=== PATIENT | female | born 1965 | race Hispanic/Latino ===

== ENCOUNTER 2024-04-24 00:02 | Emergency (ER) | payer SELFPAY ==
[~2024-04-24] VITALS: Ht 160 cm; Wt 66.7 kg
[2024-04-24] MEDS: ondanSETRON 4MG INJ IVP ONE (00:56)
[2024-04-24] MEDS: morPHINE 4 MG SYG IVP ONE (00:56)
[2024-04-24 01:11] LABS: CREATININE 0.7 mg/dL (0.5-1.0); POTASSIUM 4.6 mmol/L (3.5-5.1)
[2024-04-24 01:15] LABS: BILIRUBIN,DIRECT 0.4 mg/dL (0.0-0.3); BILIRUBIN,TOTAL 1.3 mg/dL (0.2-1.0); TOTAL PROTEIN, SERUM 6.3 g/dL (6.0-8.3)
[2024-04-24 01:24] LABS: BASOPHILS # (AUTO) 0.01 K/uL (0.00-0.20); BASOPHILS % (AUTO) 0.2 % (0.0-5.0); EOSINOPHILS # (AUTO) 0.18 K/uL (0.00-0.70); EOSINOPHILS % (AUTO) 3.8 % (0.0-8.0); HEMATOCRIT 31.8 % (36-48); IMMATURE GRANULOCYTE ABSOLUTE 0.01 K/uL (0-1); LYMPHOCYTES % (AUTO) 20.8 % (21.0-51.0); MEAN CORPUSCULAR HEMOGLOBIN 32.1 pg (27.0-33.0); MEAN CORPUSCULAR HGB CONC 33.3 g/dL (32.0-36.0); MEAN CORPUSCULAR VOLUME 96.4 fL (79-99); MONOCYTES # (AUTO) 0.9 K/uL (0.1-1.0); MONOCYTES % (AUTO) 17.9 % (3.0-13.0); NEUTROPHILS # (AUTO) 2.7 K/uL (1.8-7.7); NEUTROPHILS % (AUTO) 57.1 % (40.0-77.0); PLATELET COUNT (AUTO) 92 K/uL (130-400); RED CELL DISTRIBUTION WIDTH 16.1 % (11.0-15.5); WHITE BLOOD COUNT (AUTO) 4.8 K/uL (4.8-10.8)
[2024-04-24 01:52] LABS: B-TYPE NATRIURETIC PEPTIDE 52 pg/mL (0-100)
[2024-04-24 02:31] LABS: WBC MORPHOLOGY CONSISTENT W/DIFF
[2024-04-24] MEDS ORDERED: IOHEXOL 350 MG/ML 100ML INFUS..BTL IV ONE (03:21)
[2024-04-24] MEDS: LACTULOSE 20 GM/30 ML UDCUP PO ONE (03:22)
[2024-04-24] MEDS: ketOROlac 15MG/ML VIAL (15MG/ML) IV ONE (03:34)
[2024-04-24 04:17] LABS: APPEARANCE,URINE CLEAR (CLEAR); BILIRUBIN,URINE NEGATIVE (NEGATIVE); COLOR,URINE YELLOW (YELLOW); GLUCOSE, URINE (UA) NEGATIVE (NEGATIVE); KETONES,URINE NEGATIVE (NEGATIVE); LEUKOCYTE ESTERASE ,URINE 25 Leu/uL (NEGATIVE); NITRATE,URINE NEGATIVE (NEGATIVE); OCCULT BLOOD,URINE NEGATIVE (NEGATIVE); PH,URINE 6.5 (5.0-8.0); PROTEIN,URINE 20 mg/dL (NEGATIVE)
[2024-04-24 04:32] LABS: ADD UA MICROSCOPIC YES
[2024-04-24 04:36] LABS: MUCUS,URINE RARE LPF (None Seen); SQUAMOUS EPITHELIAL CELL,UR MOD /HPF (0-2)
[2024-04-24 07:14] VITALS: BP 121/53; PULSE 68; RESP 18; TEMP 98.2; O2SAT 99
== END 2024-04-24 07:16 | disposition home or self-care (01) ==
LOC: EDH 00:02
DX: K74.60 Unspecified cirrhosis of liver (principal); R18.8 Other ascites; E11.9 Type 2 diabetes mellitus without complications; I10 Essential (primary) hypertension; E78.00 Pure hypercholesterolemia, unspecified
CPT/HCPCS: 99285; 74177; 96374; 76705; 96375; 71045; 80076; 84484; 80048; 83880; 82140; 83690; 85025; 81001; 36415; 93005; J2405; J2270; J1885; Q9967

== ENCOUNTER 2024-06-24 13:48 | Emergency (ER) | payer SELFPAY ==
[~2024-06-24] VITALS: Ht 157.5 cm; Wt 116.6 kg
[~2024-06-24 13:48] MED LIST: ACET-2079 PO; CYAN25006 SL; FERR1TAB66 PO; FURO20TA4 PO; LACT10SO9 PO; LEVO150C4 PO; PANT20TA18 PO; PROP10TA10 PO; SPIR25TA6 PO
[2024-06-24 13:49] VITALS: BP 112/58; PULSE 64; RESP 20; TEMP 98.5
--- NOTE | 2024-06-24 14:07 | ERN ---
ED Note History of Present Illness Stated Complaint: ABDOMINAL PAIN Chief Complaint: Abdominal Pain Time Seen by MD: 14:04 Dictation: PATIENT IS A 58-YEAR-OLD PATIENT HERE WITH CIRRHOSIS OF THE LIVER AND REQUESTING A PARACENTESIS. SHE STATES SHE HAS HAD ABDOMINAL DISTENTION FOR THE LAST 3-4 DAYS, WENT TO HER DOCTOR AT [facility], WAS ADVISED TO COME TO [facility] THIS AFTERNOON FOR A PARACENTESIS. SHE IS ALSO TAKING HER LACTULOSE HOWEVER SHE IS ALERT AND ORIENTED X4 SPEECH CLEAR STATES SHE ONLY USES [facility] FOR H ER PARACENTESIS. Allergies: Coded Allergies: No Known Allergies (Unverified Allergy, Unknown, 04/24/24) morphine (Unverified Allergy, Unknown, 05/25/24) Home Meds Active Scripts Lactulose (Lactulose) 20 Gram/30 Ml Solution, 30 ML PO BID for constipation for 30 Days, #900 ML 0 Refills Prov:FERNANDO SAUCEDA MD 05/26/24 Propranolol HCl (Propranolol HCl) 10 Mg Tablet, 1 TAB PO BID for 14 Days, #28 TAB 0 Refills Prov:FERNANDO SAUCEDA MD 05/26/24 Spironolactone (Spironolactone) 25 Mg Tablet, 1 TAB PO DAILY for 14 Days, #14 TAB 0 Refills Prov:FERNANDO SAUCEDA MD 05/26/24 Furosemide (Furosemide) 20 Mg Tablet, 1 TAB PO BID for 14 Days, #28 TAB 0 Refills Prov:FERNANDO SAUCEDA MD 05/26/24 Pantoprazole Sodium (Pantoprazole Sodium) 20 Mg Tablet.dr, 1 TAB PO DAILY for 30 Days, #30 TAB 0 Refills Prov:FERNANDO SAUCEDA MD 05/26/24 Reported Medications Levothyroxine Sodium (Levothyroxine) 150 Mcg Capsule, 1 CAP PO DAILY for 30 Days, #30 CAP 0 Refills 05/26/24 Cyanocobalamin (Vitamin B-12) (B-12) 2,500 Mcg Tab.subl, 1 TAB SL DAILY for 30 Days, #30 TAB 0 Refills 05/26/24 Acetaminophen with Codeine (Acetaminophen-Cod #3 Tablet) 300 Mg-30 Mg Tablet, 1 TAB PO Q6HPRN PRN for pain for 7 Days, #28 TAB 0 Refills 05/26/24 Iron,Carbonyl/Ascorbic Acid (Vitron-C Tablet) 65 Mg Iron-125 Mg Tablet.dr, 1 TAB PO DAILY for 30 Days, #30 TAB 0 Refills 05/26/24 Past Medical History Past Medical History: Diabetes-Type II, High Cholesterol, Hypertension, Other Additional Past Medical Hx: CIRRHOSIS,THYROID Surgical History: None History: Not Applicable RN Note Reviewed/Agreed w/PFSH: Yes Review of System Dictation CONSTITUTIONAL: NEGATIVE EXCEPT FOR HPI HEAD/FACE: NEGATIVE EXCEPT FOR HPI EENT: NEGATIVE EXCEPT FOR HPI RESPIRATORY: NEGATIVE EXCEPT FOR HPI SHORTNESS A BREATH GASTROINTESTINAL/ABDOMINAL: NEGATIVE EXCEPT FOR HPI ABDOMINAL DISTENTION GENITOURINARY: NEGATIVE EXCEPT FOR HPI MUSCULOSKELETAL: NEGATIVE EXCEPT FOR HPI INTEGUMENTARY: NEGATIVE EXCEPT FOR HPI NEUROLOGICAL/PSYCH: NEGATIVE EXCEPT FOR HPI HEMATOLOGIC/LYMPHATIC: NEGATIVE EXCEPT FOR HPI ALL SYSTEMS NEGATIVE, EXCEPT NOTED ABOVE. 13 POINT REVIEW OF SYSTEMS ASSESSED AND ALL NEGATIVE EXCEPT FOR ABOVE. Initial Vital Sign VS Vital Signs Date Time Temp Pulse Resp B/P (MAP) Pulse Ox O2 Delivery O2 Flow Rate FiO2 06/24/24 13:49 98.4 64 20 112/58 100 Room Air 0 Physical Exam Dictation VITAL SIGNS REVIEWED GENERAL APPEARANCE: ALERT, ORIENTED X 3, MILD ACUTE DISTRESS, WELL DEVELOPED, NOURISHED. MORBIDLY OBESE HEAD AND FACE: NON-TRAUMATIC. EYES: PERRL, PINK CONJUNCTIVAS, EYELID NO TRAUMA, ANTERIOR CHAMBER WITH ARCUS SENILIS. EARS: PINNAS INTACT AND NO SIGNS OF TRAUMA OR ERYTHEMA EAR CANALS CLEAR AND NO DISCHARGE TM NO ERYTHEMA NOSE: NO DISCHARGE, NO BLEEDING. OROPHARYNX: MOUTH NORMAL, TONGUE PINK, PHARYNX CLEAR,NO ERYTHEMA, TONSILS NO EXUDATES, NO ABSCESSES NOTED, MUCOUS M EMBRANE MOIST NECK: SUPPLE, NON-TENDER, NO THYROMEGALY, NO MASSES, NO JVD, NO BRUITS BREAST:DEFERRED CHEST:NO TENDERNESS, NO CREPITUS, NO PARADOXICAL MOVEMENT, NO RETRACTIONS LUNGS:CLEAR, WELL-VENTILATED, SYMMETRIC, NO RALES, NO WHEEZING, NO RHONCHI, NO STRIDOR, GOOD BREATH SOUNDS BILATERALLY HEART: REGULAR RATE, REGULAR RHYTHM, NO MURMUR, NO GALLOPS VASCULAR: NO PERIPHERAL EDEMA, ABDOMEN: SOFT, POSITIVE BOWEL SOUNDS, DISTENDED WITH POSITIVE WAVE SIGN, HEPATOMEGALY NOTED. NO FOCAL TENDERNESS RECTAL: DEFERRED GENITAL: DEFERRED NEUROLOGICAL: NORMAL SPEECH, MOTOR FUNCTION INTACT, SENSORY FUNCTION INTACT MUSCULOSKELETAL: NECK NONTENDER, FULL RANGE OF MOTION, BACK NONTENDER, FULL RANGE OF MOTION, EXTREMITIES: NONTENDER, FULL RANGE OF MOTION SKIN: COLOR PINK, DRY, NO TURGOR, NO RASH, NO LACERATIONS, NO ABRASIONS, NO CONTUSIONS. LYMPHATIC: DEFERRED Results (Laboratory/Radiology) Labs Reviewed?: Yes ED Course ED Course Orders Procedure Category Date Status Time Ammonia LAB 06/24/24 Transmitted 14:04 Pt And Ptt LAB 06/24/24 Transmitted 14:04 Cbc With Differential LAB 06/24/24 Transmitted 14:04 Basic Metabolic Panel LAB 06/24/24 Transmitted 14:04 Vital Signs Date Time Temp Pulse Resp B/P (MAP) Pulse Ox O2 Delivery O2 Flow Rate FiO2 06/24/24 13:49 98.4 64 20 112/58 100 Room Air 0 DX & DISP Departure Condition: Stable Referrals: SELF,REFERRAL (PCP) URMILA LESLIE NP Jun 24, 2024 14:07
[2024-06-24 14:36] LABS: BASOPHILS # (AUTO) 0.01 K/uL (0.00-0.20); BASOPHILS % (AUTO) 0.2 % (0.0-5.0); EOSINOPHILS # (AUTO) 0.28 K/uL (0.00-0.70); EOSINOPHILS % (AUTO) 6.4 % (0.0-8.0); IMMATURE GRANULOCYTE ABSOLUTE 0.01 K/uL (0-1); LYMPHOCYTES # (AUTO) 0.8 K/uL (1.0-4.8); LYMPHOCYTES % (AUTO) 17.1 % (21.0-51.0); MEAN CORPUSCULAR HEMOGLOBIN 32.6 pg (27.0-33.0); MEAN CORPUSCULAR HGB CONC 32.6 g/dL (32.0-36.0); MONOCYTES # (AUTO) 0.8 K/uL (0.1-1.0); MONOCYTES % (AUTO) 18.3 % (3.0-13.0); NEUTROPHILS # (AUTO) 2.5 K/uL (1.8-7.7); NEUTROPHILS % (AUTO) 57.8 % (40.0-77.0); PLATELET COUNT (AUTO) 105 K/uL (130-400); WHITE BLOOD COUNT (AUTO) 4.4 K/uL (4.8-10.8)
[2024-06-24 14:49] LABS: CREATININE 0.9 mg/dL (0.5-1.0); POTASSIUM 4.1 mmol/L (3.5-5.1)
--- NOTE | 2024-06-24 15:33 | NUR ---
CHARTED ON PATIENT IN ERROR.
[2024-06-24 15:42] LABS: INR 1.55 (0.85-1.15); PROTHROMBIN TIME 16.2 SEC (9.6-11.6)
[2024-06-24 15:44] LABS: PARTIAL THROMBOPLASTIN TIME 37.1 SEC (26.3-35.5)
[2024-06-25] MEDS ORDERED: SPIR100T5 PO (20:13)
[2024-06-25] MEDS ORDERED: FURO40TA5 PO (20:13)
[2024-06-25] MEDS ORDERED: LACT10SO9 PO (20:14)
== END 2024-06-24 15:35 | disposition left against medical advice (07) ==
LOC: EDH 13:48
DX: R14.0 Abdominal distension (gaseous) (principal); E11.9 Type 2 diabetes mellitus without complications; E78.00 Pure hypercholesterolemia, unspecified; I10 Essential (primary) hypertension; Z79.890 Hormone replacement therapy; Z79.899 Other long term (current) drug therapy; Z88.5 Allergy status to narcotic agent
CPT/HCPCS: 36415; 80048; 82140; 85025; 85610; 85730; 99283

== ENCOUNTER 2024-06-25 07:45 | Inpatient (IN) | payer OTHER ==
[~2024-06-25] VITALS: Ht 157.5 cm; Wt 108.4 kg
[2024-06-25 08:27] LABS: BASOPHILS # (AUTO) 0.03 K/uL (0.00-0.20); BASOPHILS % (AUTO) 0.6 % (0.0-5.0); EOSINOPHILS # (AUTO) 0.39 K/uL (0.00-0.70); EOSINOPHILS % (AUTO) 7.3 % (0.0-8.0); HEMATOCRIT 33.1 % (36-48); IMMATURE GRANULOCYTE ABSOLUTE 0.02 K/uL (0-1); LYMPHOCYTES % (AUTO) 19.5 % (21.0-51.0); MEAN CORPUSCULAR HEMOGLOBIN 32.6 pg (27.0-33.0); MEAN CORPUSCULAR HGB CONC 32.9 g/dL (32.0-36.0); MEAN CORPUSCULAR VOLUME 99.1 fL (79-99); MONOCYTES # (AUTO) 1.1 K/uL (0.1-1.0); MONOCYTES % (AUTO) 20.6 % (3.0-13.0); NEUTROPHILS # (AUTO) 2.8 K/uL (1.8-7.7); NEUTROPHILS % (AUTO) 51.6 % (40.0-77.0); PLATELET COUNT (AUTO) 111 K/uL (130-400); RED BLOOD CELL COUNT(AUTO) 3.34 MIL/uL (4.00-5.50); RED CELL DISTRIBUTION WIDTH 15.9 % (11.0-15.5); WHITE BLOOD COUNT (AUTO) 5.3 K/uL (4.8-10.8)
[2024-06-25 08:36] LABS: CREATININE 0.9 mg/dL (0.5-1.0); POTASSIUM 4.5 mmol/L (3.5-5.1)
[2024-06-25 08:40] LABS: ALBUMIN 1.9 g/dL (3.5-5.0); BILIRUBIN,DIRECT 0.3 mg/dL (0.0-0.3); BILIRUBIN,TOTAL 1.6 mg/dL (0.2-1.0); TOTAL PROTEIN, SERUM 6.5 g/dL (6.0-8.3)
[2024-06-25] MEDS: furoSEMIDE 100MG VIAL 10 MG/ML VIAL IVP ONE (08:42)
--- NOTE | 2024-06-25 09:35 | HMCIMG ---
CHEST 1VW HISTORY: Shortness of breath COMPARISON: June 10, 2024 FINDINGS: A frontal projection of the chest was obtained. There are bilateral pulmonary infiltrates suggestive of pulmonary vascular congestion with possible superimposed pneumonitis. The heart is borderline enlarged. Degenerative changes are seen. No evidence of aortic calcification is seen. IMPRESSION: 1. Bilateral pulmonary infiltrates are seen suggestive of pulmonary vascular congestion with possible superimposed pneumonitis.
--- NOTE | 2024-06-25 09:48 | ERN ---
ED Note History of Present Illness Stated Complaint: ABDOMINAL PAIN Chief Complaint: Abdominal Pain Time Seen by MD: 07:46 Dictation: 58-year-old female history of cirrhosis presenting to the emergency department with worsening abdominal distention and shortness of breath. Patient reports recent paracentesis 2-3 weeks ago, takes her medications med compliant no fevers or vomiting. Symptoms are 8/10 constant and worsening. Allergies: Coded Allergies: No Known Allergies (Unverified Allergy, Unknown, 04/24/24) morphine (Unverified Allergy, Unknown, 05/25/24) Home Meds Active Scripts Lactulose (Lactulose) 20 Gram/30 Ml Solution, 30 ML PO BID for constipation for 30 Days, #900 ML 0 Refills Prov:FERNANDO SAUCEDA MD 05/26/24 Propranolol HCl (Propranolol HCl) 10 Mg Tablet, 1 TAB PO BID for 14 Days, #28 TAB 0 Refills Prov:FERNANDO SAUCEDA MD 05/26/24 Spironolactone (Spironolactone) 25 Mg Tablet, 1 TAB PO DAILY for 14 Days, #14 TAB 0 Refills Prov:FERNANDO SAUCEDA MD 05/26/24 Furosemide (Furosemide) 20 Mg Tablet, 1 TAB PO BID for 14 Days, #28 TAB 0 R efills Prov:FERNANDO SAUCEDA MD 05/26/24 Pantoprazole Sodium (Pantoprazole Sodium) 20 Mg Tablet.dr, 1 TAB PO DAILY for 30 Days, #30 TAB 0 Refills Prov:FERNANDO SAUCEDA MD 05/26/24 Reported Medications Levothyroxine Sodium (Levothyroxine) 150 Mcg Capsule, 1 CAP PO DAILY for 30 Days, #30 CAP 0 Refills 05/26/24 Cyanocobalamin (Vitamin B-12) (B-12) 2,500 Mcg Tab.subl, 1 TAB SL DAILY for 30 Days, #30 TAB 0 Refills 05/26/24 Acetaminophen with Codeine (Acetaminophen-Cod #3 Tablet) 300 Mg-30 Mg Tablet, 1 TAB PO Q6HPRN PRN for pain for 7 Days, #28 TAB 0 Refills 05/26/24 Iron,Carbonyl/Ascorbic Acid (Vitron-C Tablet) 65 Mg Iron-125 Mg Tablet.dr, 1 TAB PO DAILY for 30 Days, #30 TAB 0 Refills 05/26/24 Past Medical History Past Medical History: Diabetes-Type II, High Cholesterol, Hypertension, Other Additional Past Medical Hx: CIRRHOSIS,THYROID Surgical History: None History: Not Applicable Review of System Dictation Constitutional: Negative for fever,chills, and weight loss Eyes: Negative for injury, pain,redness, and discharge ENT: Negative for injury,pain or swelling Cardiovascular: Negative for chest pain, palpitations, and edema Respiratory: Per HPI Abdomen/GI: Per HPI Back: Negative for injury and pain : Negative for injury, bleeding and discharge MS/Extremity: Negative for injury and deformity Skin: Negative for rash, and discoloration Neuro: Negative for headache, weakness, numbness, tingling, and seizure Psych: Negative for suicide ideation, homicidal ideation, and hallucinations Initial Vital Sign VS Vital Signs Date Time Temp Pulse Resp B/P (MAP) Pulse Ox O2 Delivery O2 Flow Rate FiO2 06/25/24 07:46 98.2 67 16 113/58 100 Room Air* 0 21 Physical Exam Dictation General: awake, alert, NAD, appears chronically ill Head/Face: Normocephalic, atraumatic Eyes: PERRL, EOMI, vision at baseline ENT: oral cavity clear, TMs clear, no signs of infection Neck: Trachea midline, supple, no nuchal rigidity Cardiovascular: RRR, normal S1/S2, No MRGs, no JVD Respiratory: CTAB, no respiratory distress, No rales or wheezes Abdomen: Soft, diffuse abdominal distention, ascites, Skin: Warm, dry, normal turgor, no rash MS/Extremity: Pulses equal, no cyanosis, neurovascular intact, FROM Neuro: COAx4, GCS 15, strength 5/5, CN 2-12 intact, normal cerebellar exam, normal gait, Psych: Normal behavior, mood, and affect normal Results (Laboratory/Radiology) Laboratory/Radiology Laboratory Tests Test 06/25/24 08:12 White Blood Count 5.3 K/uL (4.8-10.8) Red Blood Count 3.34 MIL/uL (4.00-5.50) L Hemoglobin 10.9 g/dL (12.0-16.0) L Hematocrit 33.1 % (36-48) L Mean Corpuscular Volume 99.1 fL (79-99) H Mean Corpuscular Hemoglobin 32.6 pg (27.0-33.0) Mean Corpuscular Hemoglobin Concent 32.9 g/dL (32.0-36.0) Red Cell Distribution Width 15.9 % (11.0-15.5) H Platelet Count 111 K/uL (130-400) L Mean Platelet Volume 10.1 fL (7.5-10.5) Immature Granulocyte % (Auto) 0.4 % (0-1) Neutrophils (%) (Auto) 51.6 % (40.0-77.0) Lymphocytes (%) (Auto) 19.5 % (21.0-51.0) L Monocytes (%) (Auto) 20.6 % (3.0-13.0) H Eosinophils (%) (Auto) 7.3 % (0.0-8.0) Basophils (%) (Auto) 0.6 % (0.0-5.0) Neutrophils # (Auto) 2.8 K/uL (1.8-7.7) Lymphocytes # (Auto) 1.0 K/uL (1.0-4.8) Monocytes # (Auto) 1.1 K/uL (0.1-1.0) H Eosinophils # (Auto) 0.39 K/uL (0.00-0.70) Basophils # (Auto) 0.03 K/uL (0.00-0.20) Absolute Immature Granulocyte (auto 0.02 K/uL (0-1) Nucleated Red Blood Cells 0.0 % (0.0-0.19) Sodium Level 141 mmol/L (136-145) Potassium Level 4.5 mmol/L (3.5-5.1) Chloride Level 109 mmol/L (101-111) Carbon Dioxide Level 28 mmol/L (21-32) Blood Urea Nitrogen 11 mg/dL (7-18) Creatinine 0.9 mg/dL (0.5-1.0) Glomerular Filtration Rate Calc 74 mL/min (>90) Random Glucose 115 mg/dL (70-105) H Lactic Acid Level 1.4 mmol/L (0.8-2.5) Total Calcium 8.0 mg/dL (8.5-10.1) L Total Bilirubin 1.6 mg/dL (0.2-1.0) H Direct Bilirubin 0.3 mg/dL (0.0-0.3) Aspartate Amino Transf (AST/SGOT) 89 U/L (10-37) H Alanine Aminotransferase (ALT/SGPT) 33 U/L (12-78) Alkaline Phosphatase 203 U/L (50-136) H Ammonia 71 umol/L (11-32) H Troponin I High Sensitivity 7 ng/L (4-50) Total Protein 6.5 g/dL (6.0-8.3) Albumin 1.9 g/dL (3.5-5.0) L Lipase 27 U/L (16-77) EKG Comment: EKG reviewed and interpreted by me, space, normal sinus rhythm heart rate 63, no STEMI or STEMI equivalent. X-RAY Comment: Chest x-ray reviewed and interpreted by me independently,-chest x-ray shows mild to moderate vascular congestion and left pleural effusion. ED Course ED Course Orders Procedure Category Date Status Time 12 Lead Ekg Tracing- EKG 06/25/24 Logged Technical 07:51 Cbc With Differential LAB 06/25/24 Complete 07:51 Ammonia LAB 06/25/24 Complete 07:51 Basic Metabolic Panel LAB 06/25/24 Complete 07:51 Hepatic Function Panel LAB 06/25/24 Complete 07:51 Lactic Acid LAB 06/25/24 Complete 07:51 Lipase LAB 06/25/24 Complete 07:51 Troponin I High LAB 06/25/24 Complete Sensitivity 07:51 Urinalysis Profile LAB 06/25/24 Logged 07:51 Chest 1vw RAD 06/25/24 Resulted 08:30 Furosemide 100mg Vial PHA 06/25/24 Complete (Lasix 100mg Vial) 09:00 Lactulose 20 Gm/30 Ml PHA 06/25/24 Complete Udcup (Constulose 09:30 Edm Admit Bridge Order ADM 06/25/24 Transmitted 09:37 Current Medications Medications (Trade) Dose Ordered Sig/Carmita Route PRN Reason Start Time Stop Time Status Last Admin Dose Admin Furosemide (LASix 100MG VIAL) 80 mg ONCE ONCE IVP 06/25/24 09:00 06/25/24 09:01 DC 06/25/24 08:42 Lactulose (Constulose 20gm/ 30ml Udcup) 20 gm ONCE ONCE PO 06/25/24 09:30 06/25/24 09:31 DC Vital Signs Date Time Temp Pulse Resp B/P (MAP) Pulse Ox O2 Delivery O2 Flow Rate FiO2 06/25/24 07:46 98.2 67 16 113/58 100 Room Air 0 06/25/24 07:46 98.2 67 16 113/58 100 Room Air* 0 21 Medical Decision Making MDM MDM: Differential diagnosis: Rationale: Tests considered and ordered secondary to shared decision making include: labs, ECG and radiology Previous outside records reviewed: Old ER visits. Risk of complication and/or morbidity or mortality of patient management: None Medications-Per medication reconciliation Need for hospitalization: Patient does meet criteria for hospitalization. Need for emergency major/minor surgery: No There are no social concerns with this patient. Prescription drug management Prescriptions will include symptomatic care Patient's prior external medical records from other ER visits were reviewed by me as indicated. Prior testing and results from previous visits were reviewed. Prior tests were taken into account with medical decision making and resource utilization, independent historian/historians were used to obtain complete medical history. I independently interpreted the test that were performed, results were reviewed by me and considered findings on radiology if ordered. Medical management and examination interpretation discussions were had by me with other qualified healthcare professionals as indicated for the patient's care. 58-year-old female with ascites worsening causing dyspnea and pleural effusion, admitting for further care and evaluation and treatment. DX & DISP Disposition: Inpatient Departure Impression: Primary Impression: Ascites Additional Impressions: Liver cirrhosis, Pleural effusion Condition: Stable Referrals: BELKYS SÁNCHEZ (PCP) REESE FAY MD Jun 25, 2024 09:48
[2024-06-25 10:11] LABS: INR 1.46 (0.85-1.15); PROTHROMBIN TIME 15.3 SEC (9.6-11.6)
[2024-06-25 10:12] LABS: PARTIAL THROMBOPLASTIN TIME 36.8 SEC (26.3-35.5)
[2024-06-25 10:17] LABS: APPEARANCE,URINE CLOUDY (CLEAR); BILIRUBIN,URINE NEGATIVE (NEGATIVE); COLOR,URINE LIGHT-YELLOW (YELLOW); GLUCOSE, URINE (UA) NEGATIVE (NEGATIVE); KETONES,URINE NEGATIVE (NEGATIVE); LEUKOCYTE ESTERASE ,URINE NEGATIVE Leu/uL (NEGATIVE); NITRATE,URINE NEGATIVE (NEGATIVE); OCCULT BLOOD,URINE NEGATIVE (NEGATIVE); PH,URINE 6.5 (5.0-8.0); PROTEIN,URINE NEGATIVE (NEGATIVE); UROBILINOGEN,URINE 0.2 mg/dL (0.2-1.0)
[2024-06-25 10:25] LABS: ADD UA MICROSCOPIC YES
[2024-06-25] MEDS ORDERED: PoTASSium chloRIDE 20MEQ/100ML 100 ML IV PRN (10:30)
[2024-06-25] MEDS ORDERED: PoTASSium chl 10% ELIXIR 20MEQ 20 MEQ/15 ML UDCUP PO PRN (10:30)
[2024-06-25] MEDS ORDERED: IpraTROPium/alBUTERol SULFATE 3 ML SOLUTION IH PRN (10:30)
[2024-06-25] MEDS ORDERED: PoTASSium chloRIDE 20MEQ ER 20 MEQ ERTAB PO PRN (10:30)
[2024-06-25] MEDS ORDERED: ondanSETRON 4MG INJ IVP PRN (10:30)
[2024-06-25 10:31] LABS: BACTERIA,URINE FEW /HPF (None Seen); MUCUS,URINE RARE LPF (None Seen); SQUAMOUS EPITHELIAL CELL,UR MANY /HPF (0-2)
--- NOTE | 2024-06-25 10:38 | NUR ---
PT DID NOT BRING HOME MEDICATIONS AND SHE STATES SHE WILL CALL HER DAUGHTER TO BRING HOME MEDS LATER TODAY.
--- NOTE | 2024-06-25 10:40 | NUR ---
PT TAKEN TO IR FOR PARACENTESIS VIA WHEELCHAIR.
--- NOTE | 2024-06-25 10:53 | HP ---
[facility] HISTORY AND PHYSICAL Date of Service: Jun 25, 2024 Time of Service: 10:53 HISTORY OF PRESENT ILLNESS: Date of service: 06/25/2024, patient was seen in ER room nine This is a 58-year-old female with underlying history of liver cirrhosis secondary to fatty liver disease, hypertension, hyperlipidemia, hypothyroidism, obesity with history of frequent paracentesis due to large volume ascites who presented to the ER with chief complaint of progressive abdominal distention with shortness of breath. She [place] [facility] [place] and underwent large volume paracentesis with drainage of 4.3 L of ascitic fluid. Patient states that she is maintained on low-dose diuretics with Lasix and Aldactone as outpatient and is followed by Dr. Mata with GI as outpatient. She denies any hematemesis, melena hematochezia. She has noticed that she gets streaks of hemoptysis with forceful coughing over the last four months. Abdominal distention has worsened over the past two weeks and reports having significant weight gain. She drinks about 1 L of fluid daily and she has been maintaining fluid restrictions. She reports snoring at night and she is unsure if she has been diagnosed with sleep apnea as outpatient. She denies significant confusion. She takes lactulose daily at home and reports having 1-2 bowel movements daily. On presentation to the hospital, patient was noted to be afebrile with T-max of 98.2 F, heart rate of 67, blood pressure 113/58. Labs on presentation showed PT INR of 1.46, PTT of 36.8. CMP remarkable for sodium of 141, potassium 4.5, creatinine 0.9, blood glucose of 115, AST of 89, ALT of 33, alkaline phosphatase of 203, ammonia of 71, albumin of 1.9. Presentation to the hospital, patient was noted to be afebrile and hemodynamically stable. Patient received 80 mg of IV Lasix with request for admission. Patient will be admitted for further management of decompensated liver cirrhosis with tense ascites, plan will be to obtain diagnostic and therapeutic paracentesis. Patient will receive broad-spectrum antibiotics, respiratory cultures will be obtained and consultation with pulmonology will be requested. REVIEW OF SYSTEMS CONSTITUTIONAL: Denies fevers, chills, or night sweats. No unintentional weight loss reported. NEUROLOGICAL: Denies headache, amaurosis fugax, motor weakness, sensory deficit, vertigo/spinning sensation, gait abnormalities, or tremors. ENT: No hearing loss, otalgia, otorrhea, rhinitis, rhinorrhea, hoarseness, or sore throat. CARDIOVASCULAR: Denies any exertional angina, dyspnea on exertion, orthopnea, paroxysmal nocturnal dyspnea, palpitations, life-threatening arrhythmias, claudication. PULMONARY: Episodes of streaky hemoptysis, shortness of breath at night, episodes of apnea at night SLEEP: Denies morning headaches, daytime somnolence or napping. Denies difficulty falling asleep, staying asleep, waking from sleep. Denies knowledge of snoring. GASTROINTESTINAL: Abdominal distention, weight gain, nausea GENITOURINARY: Denies frequency, urgency, nocturia, hematuria or incontinence (Storage/Irritative symptoms.) Low urinary stream, straining to void, urinary intermittency or hesitancy, splitting of the voiding stream, terminal dribbling. ENDOCRINOLOGIC: Denies polyuria, polydipsia, polyphagia or heat/cold intolerances. HEMATOLOGIC: Denies thrombophilia/previous clots, or coagulopathy/bleeding disorders. ONCOLOGIC: Denies personal history of malignancy. DERMATOLOGIC: Denies rashes or pruritus. PSYCHIATRIC: Denies any suicidal or homicidal ideation. Denies hallucinations. PAST MEDICAL HISTORY: Liver cirrhosis secondary to nonalcoholic fatty liver disease, hypothyroidism, hypertension, hyperlipidemia, type 2 diabetes mellitus, history of ascites requiring paracentesis x2 in May, PAST SURGICAL HISTORY: Previous therapeutic paracentesis x2 in May, PAST SOCIAL HISTORY: Patient is a previous smoker, currently denies active alcohol consumption or smoking FAMILY HISTORY: Denies pertinent family history Allergies: Patient reports having allergic reaction to morphine Home medications: No home medications available at bedside to be reconciled, family will be bringing home medication list to be reconciled and updated. Coded Allergies: No Known Allergies (Unverified Allergy, Unknown, 04/24/24) morphine (Unverified Allergy, Unknown, 05/25/24) PHYSICAL EXAM GENERAL APPEARANCE: The patient is awake, alert, and oriented, in no acute cardiopulmonary distress. NEUROLOGICAL: Cranial nerves II-XII grossly intact. Motor is 5/5 in bilateral upper and lower extremities proximal to distal. No sensory deficits. HEENT: Face is symmetric. Pupils are equal and reactive. Extraocular movements are intact. NECK: Supple. No JVD. No thyromegaly. No submental, submandibular, pre- /postauricular, occipital or supraclavicular lymphadenopathy. CHEST: Normal chest expansion. No Telemetry. LUNGS: Decreased breath sound of the right lung base with crackles CARDIOVASCULAR: Regular. S1 and S2 normal. No appreciable rubs, murmurs or gallops. ABDOMEN: Abdomen is distended with fluid wave noted, generalized anasarca noted : Deferred. No Levine. EXTREMITIES: 2+ pitting edema noted of bilateral lower extremities SKIN: No skin breakdown. Vital Sign (Last 24 Hours) 06/25/24 07:46 Temp 98.2 Pulse 67 Resp 16 B/P (MAP) 113/58 Pulse Ox 100 O2 Delivery Room Air O2 Flow Rate 0 FiO2 21 LABS: Laboratory: Test 06/25/24 09:50 06/25/24 08:12 Range/Units Urine Color LIGHT-YELLOW YELLOW Urine Appearance CLOUDY H CLEAR Urine pH 6.5 5.0-8.0 Urine Specific Snyder 1.008 1.001-1.031 Urine Protein NEGATIVE NEGATIVE mg/dL Urine Glucose (UA) NEGATIVE NEGATIVE mg/dL Urine Ketones NEGATIVE NEGATIVE mg/dL Urine Occult Blood NEGATIVE NEGATIVE Urine Nitrate NEGATIVE NEGATIVE Urine Bilirubin NEGATIVE NEGATIVE mg/dL Urine Urobilinogen 0.2 0.2-1.0 mg/dL Urine Leukocyte Esterase NEGATIVE NEGATIVE Tobi/uL Urine RBC 2-5 H 0-1 /HPF Urine WBC 2-5 H 0-1 /HPF Urine Squamous Epithelial Cells MANY 0-2 /HPF Urine Bacteria FEW None Seen /HPF White Blood Count 5.3 4.8-10.8 K/uL Red Blood Count 3.34 L 4.00-5.50 MIL/uL Hemoglobin 10.9 L 12.0-16.0 g/dL Hematocrit 33.1 L 36-48 % Mean Corpuscular Volume 99.1 H 79-99 fL Mean Corpuscular Hemoglobin 32.6 27.0-33.0 pg Mean Corpuscular Hemoglobin Concent 32.9 32.0-36.0 g/dL Red Cell Distribution Width 15.9 H 11.0-15.5 % Platelet Count 111 L 130-400 K/uL Mean Platelet Volume 10.1 7.5-10.5 fL Immature Granulocyte % (Auto) 0.4 0-1 % Neutrophils (%) (Auto) 51.6 40.0-77.0 % Lymphocytes (%) (Auto) 19.5 L 21.0-51.0 % Monocytes (%) (Auto) 20.6 H 3.0-13.0 % Eosinophils (%) (Auto) 7.3 0.0-8.0 % Basophils (%) (Auto) 0.6 0.0-5.0 % Neutrophils # (Auto) 2.8 1.8-7.7 K/uL Lymphocytes # (Auto) 1.0 1.0-4.8 K/uL Monocytes # (Auto) 1.1 H 0.1-1.0 K/uL Eosinophils # (Auto) 0.39 0.00-0.70 K/uL Basophils # (Auto) 0.03 0.00-0.20 K/uL Absolute Immature Granulocyte (auto 0.02 0-1 K/uL Nucleated Red Blood Cells 0.0 0.0-0.19 % Prothrombin Time 15.3 H 9.6-11.6 SEC Prothromb Time International Ratio 1.46 H 0.85-1.15 Activated Partial Thromboplast Time 36.8 H 26.3-35.5 SEC Sodium Level 141 136-145 mmol/L Potassium Level 4.5 3.5-5.1 mmol/L Chloride Level 109 101-111 mmol/L Carbon Dioxide Level 28 21-32 mmol/L Blood Urea Nitrogen 11 7-18 mg/dL Creatinine 0.9 0.5-1.0 mg/dL Glomerular Filtration Rate Calc 74 >90 mL/min Random Glucose 115 H 70-105 mg/dL Lactic Acid Level 1.4 0.8-2.5 mmol/L Total Calcium 8.0 L 8.5-10.1 mg/dL Total Bilirubin 1.6 H 0.2-1.0 mg/dL Direct Bilirubin 0.3 0.0-0.3 mg/dL Aspartate Amino Transf (AST/SGOT) 89 H 10-37 U/L Alanine Aminotransferase (ALT/SGPT) 33 12-78 U/L Alkaline Phosphatase 203 H 50-136 U/L Ammonia 71 H 11-32 umol/L Troponin I High Sensitivity 7 4-50 ng/L Total Protein 6.5 6.0-8.3 g/dL Albumin 1.9 L 3.5-5.0 g/dL Lipase 27 16-77 U/L Current Medications Medications (Trade) Dose Ordered Sig/Carmita Route PRN Reason Start Time Stop Time Status Last Admin Dose Admin Acetaminophen (TYLenol 500MG TAB) 500 mg Q6H PRN PO MILD PAIN (1-3) 06/25/24 10:30 07/25/24 10:29 Albuterol (DUOneb) 1 udvial Q6H PRN IH SHORTNESS OF BREATH 06/25/24 10:30 07/25/24 10:29 Ceftriaxone Sodium (ROCEphine 1G INJ) 1 gm Q12H IVPB 06/25/24 10:30 07/05/24 10:29 Doxycycline Hyclate (Doxycycline Hyclate) 100 mg Q12H PO 06/25/24 10:30 07/05/24 10:29 Lactulose (Constulose 20gm/ 30ml Udcup) 20 gm TID PO 06/25/24 14:00 07/25/24 13:59 Magnesium Sulfate 50 ml @ 0 mls/hr PROTOCOL IV 06/25/24 10:30 07/25/24 10:29 Ondansetron HCl (zoFRAN 4MG INJ) 4 mg Q6H PRN IVP NAUSEA/VOMITING 06/25/24 10:30 07/25/24 10:29 Pantoprazole Sodium (PROTonix 40MG INJ) 40 mg Q24H IVP 06/25/24 10:30 07/25/24 10:29 Potassium Chloride 100 ml @ 100 mls/hr AD PRN IV POTASSIUM PROTOCOL 06/25/24 10:30 07/25/24 10:29 Potassium Chloride (K-Dur/Klor-Con 20meq) 20 meq AD PRN PO POTASSIUM PROTOCOL 06/25/24 10:30 07/25/24 10:29 Potassium Chloride (KCl 10% Elixir 20meq/15ml) 20 meq AD PRN PO POTASSIUM PROTOCOL 06/25/24 10:30 07/25/24 10:29 Rifaximin (Xifaxan) 550 mg Q12H PO 06/25/24 10:30 07/25/24 10:29 DIAGNOSTICS / RADIOLOGY: SERVICE 0830 REASON: sob ORDERING PHYSICIAN: REESE FAY MD PROCEDURE: CXR1VW - CHEST 1VW CHEST 1VW HISTORY: Shortness of breath COMPARISON: June 10, 2024 FINDINGS: A frontal projection of the chest was obtained. There are bilateral pulmonary infiltrates suggestive of pulmonary vascular congestion with possible superimposed pneumonitis. The heart is borderline enlarged. Degenerative changes are seen. No evidence of aortic calcification is seen. IMPRESSION: 1. Bilateral pulmonary infiltrates are seen suggestive of pulmonary vascular congestion with possible superimposed pneumonitis. 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, POA Rule out developing community-acquired pneumonia of the right lung, POA Severe generalized anasarca due to underlying cirrhosis, POA Suspected IZZY, POA Streaky hemoptysis with forceful coughing x4 months, POA Hypothyroidism poorly controlled, POA Hypertension, POA Hyperlipidemia, POA Thrombocytopenia and coagulopathy secondary to underlying cirrhosis, POA Macrocytic anemia, POA Underlying history of type 2 diabetes mellitus, POA Elevated ammonia, POA PLAN: Patient will be admitted to medical-surgical floor under telemetry monitoring We will request IR to perform diagnostic and therapeutic paracentesis Patient will be placed on fluid restrictions of 1.5 L Patient received high-dose IV Lasix in the ER of 80 mg, we will monitor urine output closely, discussed with patient that she will need to have the doses of her diuretics slowly up titrated as outpatient to assist with management of anasarca and ascites, we will resume Lasix and Aldactone tonight, monitor blood pressure trend closely given high-dose Lasix received earlier in the ER Patient is not showing overt signs of confusion, ammonia is elevated, we will start patient on lactulose 20 g t.i.d., titrate to maintain at least 2-3 bowel movements daily, we will also start rifaximin 550 mg b.i.d. Chest x-ray shows right-sided infiltrates with likely pleural effusion, patient may have underlying hepatic hydrothorax, we will obtain CT chest without contrast of pleural effusion, patient reports having episodes of streaky hemoptysis especially with episodes of forceful coughing for the past four months,, we will obtain sputum culture, we will maintain patient on IV antibiotics with Rocephin and doxycycline TSH is significantly elevated around 22, we will obtain home dose of levothyr oxine that patient takes at home, we will obtain endocrinology consultation, for optimization of hypothyroidism Patient will be placed on sliding scale insulin a.c. and HS Monitor BMP closely, we will repeat labs in the morning, electrolytes will be repleted per protocol GI prophylaxis with Protonix, Anticipate hospitalization for 48-72 hours Patient may have underlying episodes of sleep apnea, she will benefit from sleep study as outpatient to rule out IZZY Date of service: 06/25/2024 Prognosis: Guarded, Plan of care was discussed with patient at bedside, Clive Mcleod MD Advanced Care Planning: Which of the following were discussed: Hospice care: Yes __ No _X_ Therapeutic options: Yes _X_ No __ Advance directives: Yes _X_ No __ Other discussions: Discussed with who?: Patient Voluntary nature of this service was explained to the patient? Yes _x_ No __ Amount of time spent: 20 minutes CLIVE MCLEOD MD Jun 25, 2024 10:53
[2024-06-25] MEDS ORDERED: ALBUMIN HUMAN 25% 200 ML IV ONE (10:59)
[2024-06-25 11:06] LABS: MAGNESIUM 1.8 mg/dL (1.80-2.40); THYROID STIMULATING HORMONE 21.61 uIU/mL (0.36-3.74)
--- NOTE | 2024-06-25 11:40 | NUR ---
U/S GD PARACENTESIS TOLERATED PROCEDURE. PERFORMED BY DR Timothy KOEHLER. PUNCTURE SITE TO RLQ. 1.0 LITERS OF YELLOW CLOUDY FLUID REMOVED AND SENT TO LAB. ALBUMIN 25% 25GRAMS GIVEN. END OF PROCEDURE AT 1120. DRESSING DRY AND INTACT. NO BLEEDING NOTED. REPORT GIVEN TO NATHANIEL DOLL. PT TRANSPORTED TO CT. REPORT GIVEN TO Travis WARD SLAB WORKER. DENIES PAIN. A&O. TRANSPORTED VIA WHEELCHAIR.
--- NOTE | 2024-06-25 11:41 | HMCIMG ---
US CHEST WALL SOFT TISSUE REASON: assess for significant right sided pleural effusion, possible hepatic hydro. COMPARISON: None TECHNIQUE: Ultrasound of right chest was obtained for pleural effusion. FINDINGS: Small right pleural effusion is seen. IMPRESSION: Small right pleural effusion.
--- NOTE | 2024-06-25 12:34 | HMCIMG ---
US ABDOMINAL PARACENTESIS IR HISTORY: Ascites COMPARISON: None TECHNIQUE: Informed consent was obtained. Risks and benefits were explained to the patient. A timeout was performed. Patient was prepped and draped in a sterile fashion. Local anesthetics was given as required. Under ultrasound guidance, ascites fluid was localized. Paracentesis was performed. FINDINGS: Less than 2 cc blood loss is noted. Patient tolerated procedure without complication. Patient left the department in good condition. IMPRESSION: 1. Uncomplicated ultrasound guidance paracentesis.
--- NOTE | 2024-06-25 12:34 | HMCIMG ---
US ABDOMINAL COMPLETE HISTORY: Cirrhosis COMPARISON: None TECHNIQUE: Multiple transverse and longitudinal ultrasound images of the abdomen were obtained. FINDINGS: The study is limited due to patient's large body habitus and overlying bowel gas. Abdominal aorta is not well visualized. Flow is seen in the inferior vena cava. Pancreas is partially seen. Liver measured 13 cm per Liver is echogenic consistent with liver parenchymal disease. No gallstone is seen. Common duct is not well visualized. Orbital wall measures 3 mm. Both kidneys are seen. Right kidney measures 8.8 x 4.4 x 3.3 cm. Left kidney measures 10.3 x 4.3 x 5.7 cm. No hydronephrosis is seen of the both kidneys. Spleen is enlarged measuring 14 cm. The spleen is grossly unremarkable. IMPRESSION: 1. Limited study due to patient's body habitus and overlying bowel gas. Common duct is not well seen. No definite gallstone is seen. Minimal ascites is seen.. 2. No hydronephrosis is seen.
--- NOTE | 2024-06-25 13:01 | EKG ---
[facility] Test Date: 2024-06-25 Test Time: 08:32:58 Pat Name: ADONIS ABAD Department: [facility] Room: 330 Gender: F Director Biomedical Engineering: [id number] : 1965 Requested By: REESE FAY Order Number: [id number] Reading MD: Anuj Cristina Measurements Intervals [place] Rate: 63 P: 37 MS: 152 QRS: 17 QRSD: 91 T: 26 QT: 431 QTc: 442 Interpretive Statements Sinus rhythm Compared to ECG 05/25/2024 15:34:26 No significant changes Electronically Signed On 06-28-2024 17:24:36 AS400 ADMINISTRATOR by Anuj Cristina Please click the below link to view image of tracing.
[2024-06-25 13:12] LABS: ALBUMIN,BODY FLUID < 0.6 g/dL
[2024-06-25 13:13] LABS: TOTAL PROTEIN,BODY FLUID < 2.0 g/dL
[2024-06-25] MEDS: LACTULOSE 20 GM/30 ML UDCUP PO ONE (13:21)
[2024-06-25] MEDS: RIFAXIMIN 550 MG TABLET PO SCH (13:21)
--- NOTE | 2024-06-25 13:26 | NUR ---
DCP: HOME Sw met with pt who states she lives in a rental home alone. Pt remains active and independent. Daughter Lanie Cullen [phone] or niece Martha Banda [phone] transports and assists financially as needed. PCP is A Petr and uses [facility] [address] for rx. Denies dc needs, family to transport as needed Addendum: 06/25/24 at 1331 by TYE IRIZARRY SS Amended: Links added.
[2024-06-25] MEDS: DOXYCYCLINE HYCLATE 100 MG TABLET PO SCH (13:32)
[2024-06-25] MEDS: PANTOPrazole 40 MG/VIAL IVP SCH (13:32)
[2024-06-25] MEDS: cefTRIAXone 1G VIAL IVPB SCH (13:32)
[2024-06-25] MEDS: LACTULOSE 20 GM/30 ML UDCUP PO SCH (14:00)
[2024-06-25 14:20] LABS: APPEARANCE BODY FLUID CLOUDY (CLEAR); COLOR,BODY FLUID RED (LT YELLOW); SPECIMENTYPE,BODY FLUID ASCITES; TOTAL VOLUME,BODY FLUID 1000 mL
[2024-06-25 14:35] LABS: BODY FLUID RBC 47498 /cu. mm.; BODY FLUID WBC 353 /cu. mm.
--- NOTE | 2024-06-25 14:43 | HMCIMG ---
CT CHEST W/O CONTRAST HISTORY: Cirrhosis COMPARISON: None TECHNIQUE: Multiple sequential axial images of the chest were obtained from the thoracic inlet through upper abdomen. Patient was not given contrast through intravenous route. FINDINGS: Mild bilateral pleural effusions are seen with right more than left. There is ascites. Cirrhotic changes of the liver are noted. There are abdominal varices. Spleen is enlarged. Small hiatal hernia is seen. COPD changes are seen. Minimal left lower lung infiltrates are seen. No evidence of pericardial effusion is seen. There is no evidence of pneumothorax. There are normal size mediastinal and hilar lymph nodes. The heart is not enlarged. Degenerative changes of the thoracolumbar spine are present. There is no evidence of adrenal nodule. IMPRESSION: 1. COPD. Mild bilateral pleural effusions with right more than left with ascites. Cirrhotic liver with abdominal varices. CT was performed with one or more following dose reduction techniques: automated exposure control, adjustment of the mA and kv according to patient's size, or use of a iterative reconstruction technique.
[2024-06-25 15:08] LABS: BF LYMPHOCYTE 40 %; BF MACROPHAGE 41; BF OTHER CELLS 4; BF TOTAL CELLS COUNTED 100
--- NOTE | 2024-06-25 15:30 | NUR ---
CALLED FLOOR NURSE MILLER TO GIVE REPORT AND SHE IS PASSING OUT MEDS AND WILL CALL BACK.
[2024-06-25 15:34] LABS: POTASSIUM 3.7 mmol/L (3.5-5.1)
[2024-06-25 16:20] VITALS: BP 134/67; PULSE 66; RESP 18; TEMP 98.5
--- NOTE | 2024-06-25 16:20 | NUR ---
RECEIVED PT IN ROOM 330. PT IS ALERT AND ORIENTED. NO SIGNS OR SYMPTOMS OF DISTRESS. PT DOES NOT COMPLAIN OF PAIN OR DISCOMFORT AT THIS TIME. VS WITHIN NORMAL RANGE. BREATHS EVEN AND UNLABORED. BOWEL SOUNDS PRESENT IN ALL FOUR QUADRANTS. BILATERAL PEDAL PULSES PALPABLE. +2 PITTING EDEMA NOTED. 20G PIV IN PLACE FLUSHED WITH NO PAIN OR DISCOMFORT NOTED. PT IS S/P ABDOMINAL PARACENTESIS DRESSING IS CLEAN DRY AND INTACT. PT DOES NOT HAVE ANY QUESTIONS OR CONCERNS AT THIS TIME. CALL LIGHT IS WITHIN REACH. CARE IS ONGOING.
--- NOTE | 2024-06-25 16:24 | CONS ---
CONSULT NOTE: endocrinology consult chief complaint:ascites and SOB reason for consult: uncontrolled hypothyroidism Date of Service: Jun 25, 2024 HISTORY OF PRESENT ILLNESS: This is a 58-year-old female with underlying history of liver cirrhosis secondary to fatty liver disease, hypertension, hyperlipidemia, hypothyroidism, obesity with history of frequent paracentesis due to large volume ascites who presented to the ER with chief complaint of progressive abdominal distention with shortness of breath. She was last hospitalized in [facility] and underwent large volume paracentesis with drainage of 4.3 L of ascitic fluid. Patient states that she is maintained on low-dose diuretics with Lasix and Aldactone as outpatient and is followed by Dr. Mata with GI as outpatient. She denies any hematemesis, melena hematochezia. She has noticed that she gets streaks of hemoptysis with forceful coughing over the last four months. Abdomin al distention has worsened over the past two weeks and reports having significant weight gain. She drinks about 1 L of fluid daily and she has been maintaining fluid restrictions. On presentation to the hospital, patient was noted to be afebrile with T-max of 98.2 F, heart rate of 67, blood pressure 113/58. Labs on presentation showed PT INR of 1.46, PTT of 36.8. CMP remarkable for sodium of 141, potassium 4.5, creatinine 0.9, blood glucose of 115, AST of 89, ALT of 33, alkaline phosphatase of 203, ammonia of 71, albumin of 1.9. she has hypothyroidism for many years and current taking levothyroxine 137 mcg daily. TSH 21.6 and t 4 free 1.11 REVIEW OF SYSTEMS CONSTITUTIONAL: Denies fevers, chills, or night sweats. No unintentional weight loss reported. NEUROLOGICAL: Denies headache, amaurosis fugax, motor weakness, sensory deficit, vertigo/spinning sensation, gait abnormalities, or tremors. ENT: No hearing loss, otalgia, otorrhea, rhinitis, rhinorrhea, hoarseness, or sore throat. CARDIOVASCULAR: Denies any exertional angina, dyspnea on exertion, orthopnea, paroxysmal nocturnal dyspnea, palpitations, life-threatening arrhythmias, nani dication. PULMONARY: Episodes of streaky hemoptysis, shortness of breath at night, episodes of apnea at night SLEEP: Denies morning headaches, daytime somnolence or napping. Denies difficulty falling asleep, staying asleep, waking from sleep. Denies knowledge of snoring. GASTROINTESTINAL: Abdominal distention, weight gain, nausea GENITOURINARY: Denies frequency, urgency, nocturia, hematuria or incontinence (Storage/Irritative symptoms.) Low urinary stream, straining to void, urinary intermittency or hesitancy, splitting of the voiding stream, terminal dribbling. ENDOCRINOLOGIC: Denies polyuria, polydipsia, polyphagia or heat/cold intolerances. HEMATOLOGIC: Denies thrombophilia/previous clots, or coagulopathy/bleeding disorders. ONCOLOGIC: Denies personal history of malignancy. DERMATOLOGIC: Denies rashes or pruritus. PSYCHIATRIC: Denies any suicidal or homicidal ideation. Denies hallucinations. PAST MEDICAL HISTORY: Liver cirrhosis secondary to nonalcoholic fatty liver disease, hypothyroidism, hypertension, hyperlipidemia, type 2 diabetes mellitus, history of ascites requiring paracentesis x2 in May, PAST SURGICAL HISTORY: Previous therapeutic paracentesis x2 in May, PAST SOCIAL HISTORY: Patient is a previous smoker, currently denies active alcohol consumption or smoking FAMILY HISTORY: Denies pertinent family history Allergies: Patient reports having allergic reaction to morphine Home medications: No home medications available at bedside to be reconciled, family will be bringing home medication list to be reconciled and updated. Coded Allergies: No Known Allergies (Unverified Allergy, Unknown, 04/24/24) morphine (Unverified Allergy, Unknown, 05/25/24) PHYSICAL EXAM GENERAL APPEARANCE: The patient is awake, alert, and oriented, in no acute card iopulmonary distress. NEUROLOGICAL: Cranial nerves II-XII grossly intact. Motor is 5/5 in bilateral upper and lower extremities proximal to distal. No sensory deficits. HEENT: Face is symmetric. Pupils are equal and reactive. Extraocular movements are intact. NECK: Supple. No JVD. No thyromegaly. No submental, submandibular, pre- /postauricular, occipital or supraclavicular lymphadenopathy. CHEST: Normal chest expansion. No Telemetry. LUNGS: Decreased breath sound of the right lung base with crackles CARDIOVASCULAR: Regular. S1 and S2 normal. No appreciable rubs, murmurs or gallops. ABDOMEN: Abdomen is distended with fluid wave noted, generalized anasarca noted : Deferred. No Levine. EXTREMITIES: 2+ pitting edema noted of bilateral lower extremities SKIN: No skin breakdown. DIAGNOSTICS / RADIOLOGY: SERVICE 9 REASON: sob ORDERING PHYSICIAN: REESE FAY MD PROCEDURE: CXR1VW - CHEST 1VW CHEST 1VW HISTORY: Shortness of breath COMPARISON: June 10, 2024 FINDINGS: A frontal projection of the chest was obtained. There are bilateral pulmonary infiltrates suggestive of pulmonary vascular congestion with possible superimposed pneumonitis. The heart is borderline enlarged. Degenerative changes are seen. No evidence of aortic calcification is seen. IMPRESSION: 1. Bilateral pulmonary infiltrates are seen suggestive of pulmonary vascular congestion with possible superimposed pneumonitis. DICTATED BY: GIDEON KOEHLER MD DATE: 06/25/24931 ELECTRONICALLY SIGNED BY: GIDEON KOEHLER MD DATE: 06/25/24934 ASSESSMENT: uncontrolled primary hypothyroidism she has hypothyroidism for many years and current taking levothyroxine 137 mcg daily. tsh is elevated, so recommend to increase levothyroxine dose. 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, POA Severe generalized anasarca due to underlying cirrhosis, POA Suspected IZZY, POA Streaky hemoptysis with forceful coughing x4 months, POA Hypertension, POA Hyperlipidemia, POA Thrombocytopenia and coagulopathy secondary to underlying cirrhosis, POA Macrocytic anemia, POA Underlying history of type 2 diabetes mellitus, POA Elevated ammonia, POA PLAN: increase levothyroxine to 150 mcg daily educated on hypothyroidism repeat thyroid labs in 6 weeks thanks for allowing me to particpate in patient care and will continue to follow up. Vital Signs 06/25/24 06/25/24 07:46 15:00 Temp 98.2 Pulse 80 Resp 20 B/P (MAP) 124/70 Pulse Ox 97 O2 Delivery Room Air* O2 Flow Rate 0 FiO2 21 Hematology Labs: Test 06/25/24 10:31 06/25/24 08:12 Range/Units Erythrocyte Sedimentation Rate 29 0-30 MM/HR White Blood Count 5.3 4.8-10.8 K/uL Red Blood Count 3.34 L 4.00-5.50 MIL/uL Hemoglobin 10.9 L 12.0-16.0 g/dL Hematocrit 33.1 L 36-48 % Mean Corpuscular Volume 99.1 H 79-99 fL Mean Corpuscular Hemoglobin 32.6 27.0-33.0 pg Mean Corpuscular Hemoglobin Concent 32.9 32.0-36.0 g/dL Red Cell Distribution Width 15.9 H 11.0-15.5 % Platelet Count 111 L 130-400 K/uL Mean Platelet Volume 10.1 7.5-10.5 fL Immature Granulocyte % (Auto) 0.4 0-1 % Neutrophils (%) (Auto) 51.6 40.0-77.0 % Lymphocytes (%) (Auto) 19.5 L 21.0-51.0 % Monocytes (%) (Auto) 20.6 H 3.0-13.0 % Eosinophils (%) (Auto) 7.3 0.0-8.0 % Basophils (%) (Auto) 0.6 0.0-5.0 % Neutrophils # (Auto) 2.8 1.8-7.7 K/uL Lymphocytes # (Auto) 1.0 1.0-4.8 K/uL Monocytes # (Auto) 1.1 H 0.1-1.0 K/uL Eosinophils # (Auto) 0.39 0.00-0.70 K/uL Basophils # (Auto) 0.03 0.00-0.20 K/uL Absolute Immature Granulocyte (auto 0.02 0-1 K/uL Nucleated Red Blood Cells 0.0 0.0-0.19 % Chemistry Labs: Test 06/25/24 15:02 06/25/24 10:35 06/25/24 08:12 Range/Units Sodium Level 141 136-145 mmol/L Potassium Level 3.7 3.5-5.1 mmol/L Chloride Level 109 101-111 mmol/L Carbon Dioxide Level 24 21-32 mmol/L Blood Urea Nitrogen 10 7-18 mg/dL Creatinine 1.0 0.5-1.0 mg/dL Glomerular Filtration Rate Calc 65 >90 mL/min Random Glucose 225 #H 70-105 mg/dL Total Calcium 7.3 L 8.5-10.1 mg/dL Magnesium Level 1.80 1.80-2.40 mg/dL C-Reactive Protein, Quantitative 40.60 H 0.5-3.0 mg/L Procalcitonin 0.16 0.05-0.5 ng/mL Thyroid Stimulating Hormone (TSH) 21.61 H 0.36-3.74 uIU/mL Free Thyroxine (T4) Direct 1.11 0.76-1.46 ng/dL Free Triiodothyronine (T3) pg/mL 1.74 L 2.18-3.98 pg/mL Lactic Acid Level 1.4 0.8-2.5 mmol/L Total Bilirubin 1.6 H 0.2-1.0 mg/dL Direct Bilirubin 0.3 0.0-0.3 mg/dL Aspartate Amino Transf (AST/SGOT) 89 H 10-37 U/L Alanine Aminotransferase (ALT/SGPT) 33 12-78 U/L Alkaline Phosphatase 203 H 50-136 U/L Ammonia 71 H 11-32 umol/L Troponin I High Sensitivity 7 4-50 ng/L Total Protein 6.5 6.0-8.3 g/dL Albumin 1.9 L 3.5-5.0 g/dL Lipase 27 16-77 U/L Coagulation Labs: Test 06/25/24 08:12 Range/Units Prothrombin Time 15.3 H 9.6-11.6 SEC Prothromb Time International Ratio 1.46 H 0.85-1.15 Activated Partial Thromboplast Time 36.8 H 26.3-35.5 SEC Current Medications Medications (Trade) Dose Ordered Sig/Carmita Route Start Time Stop Time Status Last Admin Dose Admin Ceftriaxone Sodium (ROCEphine 1G INJ) 1 gm Q12H IVPB 06/25/24 10:30 07/05/24 10:29 06/25/24 13:32 1 GM Doxycycline Hyclate (Doxycycline Hyclate) 100 mg Q12H PO 06/25/24 10:30 07/05/24 10:29 06/25/24 13:32 100 MG Insulin Human Regular (humuLIN R 100 UNIT/ML 3ML) INSULIN SLIDING SCAL... ACHS SQ 06/25/24 16:30 07/25/24 16:29 Lactulose (Constulose 20gm/ 30ml Udcup) 20 gm TID PO 06/25/24 14:00 07/25/24 13:59 Magnesium Sulfate 50 ml @ 0 mls/hr PROTOCOL IV 06/25/24 10:30 07/25/24 10:29 Pantoprazole Sodium (PROTonix 40MG INJ) 40 mg Q24H IVP 06/25/24 10:30 07/25/24 10:29 06/25/24 13:32 40 MG Rifaximin (Xifaxan) 550 mg Q12H PO 06/25/24 10:30 07/25/24 10:29 06/25/24 13:21 550 MG JEANMARIE ABAD MD Jun 25, 2024 16:24
[2024-06-25] MEDS: INSULIN humuLIN R 100 UNIT/ML 3ML SQ SCH (16:30)
[2024-06-25 17:29] VITALS: BP 134/67; PULSE 66; RESP 18; TEMP 98.5
[2024-06-25 20:00] VITALS: BP 137/72; PULSE 75; RESP 20; TEMP 98.5; O2SAT 96
--- NOTE | 2024-06-25 20:00 | NUR ---
MEDS SHIFT ASSESSMENT DONE, PLEASE REFER TO CHART. DUE MEDS ADMINISTERED, TOLERATED WELL. KEPT RESTED AND COMFORTABLE IN BED. CALL LIGHT WITHIN REACH.
[2024-06-25] MEDS: MAGNESIUM 2GM PREMIX 50ML 50 ML IV SCH (20:02)
[2024-06-25] MEDS ORDERED: SPIR100T5 PO (20:13)
[2024-06-25] MEDS ORDERED: FURO40TA5 PO (20:13)
[2024-06-25] MEDS ORDERED: LACT10SO9 PO (20:14)
[2024-06-25] MEDS: PROPRANOLOL HCL 10 MG TAB PO SCH (21:43)
[2024-06-26] VITALS (8 sets, daily range): BP systolic 101–127; BP diastolic 53–68; PULSE 67–72; RESP 18–20; TEMP 98.2–98.8; O2SAT 96–98
[2024-06-26 05:30] LABS: BASOPHILS # (AUTO) 0.02 K/uL (0.00-0.20); BASOPHILS % (AUTO) 0.5 % (0.0-5.0); EOSINOPHILS # (AUTO) 0.18 K/uL (0.00-0.70); EOSINOPHILS % (AUTO) 4.2 % (0.0-8.0); HEMATOCRIT 30.6 % (36-48); IMMATURE GRANULOCYTE ABSOLUTE 0.01 K/uL (0-1); LYMPHOCYTES # (AUTO) 0.9 K/uL (1.0-4.8); LYMPHOCYTES % (AUTO) 21.1 % (21.0-51.0); MEAN CORPUSCULAR HEMOGLOBIN 32.1 pg (27.0-33.0); MEAN CORPUSCULAR HGB CONC 32.4 g/dL (32.0-36.0); MEAN CORPUSCULAR VOLUME 99.4 fL (79-99); MONOCYTES # (AUTO) 0.9 K/uL (0.1-1.0); MONOCYTES % (AUTO) 20.9 % (3.0-13.0); NEUTROPHILS # (AUTO) 2.3 K/uL (1.8-7.7); NEUTROPHILS % (AUTO) 53.1 % (40.0-77.0); PLATELET COUNT (AUTO) 91 K/uL (130-400); RED BLOOD CELL COUNT(AUTO) 3.08 MIL/uL (4.00-5.50); RED CELL DISTRIBUTION WIDTH 15.9 % (11.0-15.5); WHITE BLOOD COUNT (AUTO) 4.3 K/uL (4.8-10.8)
[2024-06-26] MEDS: levoTHYROxine 150 MCG TABLET PO SCH (05:51)
--- NOTE | 2024-06-26 05:51 | NUR ---
MEDS PT SLEPT AT INTERVALS DURING THE SHIFT. AWAKENED FOR DUE MEDS, TOLERATED WELL. KEPT RESTED AND COMFORTABLE IN BED. CALL LIGHT WITHIN REACH. FOR MORE CARE.
[2024-06-26 05:54] LABS: BILIRUBIN,TOTAL 1.6 mg/dL (0.2-1.0); CREATININE 0.8 mg/dL (0.5-1.0); POTASSIUM 3.7 mmol/L (3.5-5.1); TOTAL PROTEIN, SERUM 5.7 g/dL (6.0-8.3)
[2024-06-26] MEDS: PANTOPrazole 40 MG TAB DR PO SCH (09:48)
[2024-06-26] MEDS: SPIRONOLACTONE 25 MG TAB PO SCH (09:48)
[2024-06-26] MEDS: furoSEMIDE 40 MG TABLET PO SCH (09:48)
--- NOTE | 2024-06-26 09:51 | PN ---
[facility] PROGRESS NOTE Date of Service: Jun 26, 2024 Time of Service: 09:35 SUBJECTIVE: 06/25 - Patient is a 58 year old female, Chinese speaking, with a past medical history liver cirrhosis secondary to fatty liver disease, hypertension, hyperlipidemia, hypothyroidism, and obesity with a history of frequent large volume paracentesis. Patient last admission was 06/10 for large volume para centesis with drainage of 4.3L of ascitic acid. Upon admission patient had elevated TSH, Dr. Thomas, endocrinology was consulted. Per Endocrinology, levothyroxine will be increased to 150mcg daily and will have her labs repeated in 6 weeks outpatient. Possible paracentesis pending. Will continue to follow recommendations per Pulmonology. Patient remains on Lasix 40 mg QD, spirolactone 100 mg QD, lactulose 20 gm TID, doxycycline and Rocephin. Remarkable labs: white count 4.3, H&H stable, platelets down from 111 to 91K. Chemistries are unremarkable. Pending ascites culture results from 1L removal upon admission. REVIEW OF SYSTEMS CONSTITUTIONAL: Denies fevers, chills, or night sweats. No unintentional weight loss reported. NEUROLOGICAL: Denies headache, amaurosis fugax, motor weakness, sensory deficit, vertigo/spinning sensation, gait abnormalities, or tremors. ENT: No hearing loss, otalgia, otorrhea, rhinitis, rhinorrhea, hoarseness, or sore throat. CARDIOVASCULAR: Denies any exertional angina, dyspnea on exertion, orthopnea, paroxysmal nocturnal dyspnea, palpitations, life-threatening arrhythmias, claudication. PULMONARY: Episodes of streaky hemoptysis, shortness of breath at night, episodes of apnea at night SLEEP: Denies morning headaches, daytime somnolence or napping. Denies difficulty falling asleep, staying asleep, waking from sleep. Denies knowledge of snoring. GASTROINTESTINAL: Abdominal distention, weight gain, nausea GENITOURINARY: Denies frequency, urgency, nocturia, hematuria or incontinence (Storage/Irritative symptoms.) Low urinary stream, straining to void, urinary intermittency or hesitancy, splitting of the voiding stream, terminal dribbling. ENDOCRINOLOGIC: Denies polyuria, polydipsia, polyphagia or heat/cold intolerances. HEMATOLOGIC: Denies thrombophilia/previous clots, or coagulopathy/bleeding disorders. ONCOLOGIC: Denies personal history of malignancy. DERMATOLOGIC: Denies rashes or pruritus. PSYCHIATRIC: Denies any suicidal or homicidal ideation. Denies hallucinations. PHYSICAL EXAM GENERAL APPEARANCE: The patient is awake, alert, and oriented, in no acute cardiopulmonary distress. NEUROLOGICAL: Cranial nerves II-XII grossly intact. Motor is 5/5 in bilateral upper and lower extremities proximal to distal. No sensory deficits. HEENT: Face is symmetric. Pupils are equal and reactive. Extraocular movements are intact. NECK: Supple. No JVD. No thyromegaly. No submental, submandibular, pre- /postauricular, occipital or supraclavicular lymphadenopathy. CHEST: Normal chest expansion. No Telemetry. LUNGS: Decreased breath sound of the right lung base with crackles CARDIOVASCULAR: Regular. S1 and S2 normal. No appreciable rubs, murmurs or gallops. ABDOMEN: Abdomen is distended with fluid wave noted, generalized anasarca noted : Deferred. No Levine. EXTREMITIES: 2+ pitting edema noted of bilateral lower extremities SKIN: No skin breakdown. Vital Signs (last 8hr) Date Time Temp Pulse Resp B/P (MAP) Pulse Ox O2 Delivery O2 Flow Rate FiO2 06/26/24 08:11 98.8 70 18 122/53 96 Room Air 06/26/24 04:00 98.4 72 20 101/54 98 Room Air LABS: Laboratory: Test 06/26/24 05:18 06/26/24 04:31 06/25/24 11:00 06/25/24 10:35 Range/Units Whole Blood Glucose 108 70-110 MG/DL White Blood Count 4.3 L 4.8-10.8 K/uL Red Blood Count 3.08 L 4.00-5.50 MIL/uL Hemoglobin 9.9 L 12.0-16.0 g/dL Hematocrit 30.6 L 36-48 % Mean Corpuscular Volume 99.4 H 79-99 fL Mean Corpuscular Hemoglobin 32.1 27.0-33.0 pg Mean Corpuscular Hemoglobin Concent 32.4 32.0-36.0 g/dL Red Cell Distribution Width 15.9 H 11.0-15.5 % Platelet Count 91 L 130-400 K/uL Mean Platelet Volume 10.3 7.5-10.5 fL Immature Granulocyte % (Auto) 0.2 0-1 % Neutrophils (%) (Auto) 53.1 40.0-77.0 % Lymphocytes (%) (Auto) 21.1 21.0-51.0 % Monocytes (%) (Auto) 20.9 H 3.0-13.0 % Eosinophils (%) (Auto) 4.2 0.0-8.0 % Basophils (%) (Auto) 0.5 0.0-5.0 % Neutrophils # (Auto) 2.3 1.8-7.7 K/uL Lymphocytes # (Auto) 0.9 L 1.0-4.8 K/uL Monocytes # (Auto) 0.9 0.1-1.0 K/uL Eosinophils # (Auto) 0.18 0.00-0.70 K/uL Basophils # (Auto) 0.02 0.00-0.20 K/uL Absolute Immature Granulocyte (auto 0.01 0-1 K/uL Nucleated Red Blood Cells 0.0 0.0-0.19 % Sodium Level 143 136-145 mmol/L Potassium Level 3.7 3.5-5.1 mmol/L Chloride Level 110 101-111 mmol/L Carbon Dioxide Level 25 21-32 mmol/L Blood Urea Nitrogen 12 7-18 mg/dL Creatinine 0.8 0.5-1.0 mg/dL Glomerular Filtration Rate Calc 85 >90 mL/min Random Glucose 109 #H 70-105 mg/dL Total Calcium 7.9 L 8.5-10.1 mg/dL Magnesium Level 2.00 1.80-2.40 mg/dL Total Bilirubin 1.6 H 0.2-1.0 mg/dL Aspartate Amino Transf (AST/SGOT) 61 H 10-37 U/L Alanine Aminotransferase (ALT/SGPT) 27 12-78 U/L Alkaline Phosphatase 151 #H 50-136 U/L Total Protein 5.7 L 6.0-8.3 g/dL Albumin 2.0 L 3.5-5.0 g/dL Body Fluid Source ASCITES Body Fluid Volume 1000 mL Body Fluid Color RED H LT YELLOW Body Fluid Supernatant Appearance CLOUDY H CLEAR Body Fluid WBC 353 /cu. mm. Body Fluid RBC 66262 /cu. mm. Body Fluid Neutrophils 15.0 % Body Fluid Lymphocytes 40 % Body Fluid Macrophages (%) 41 Body Fluid Other Cells (%) 4 Body Fluid Total Protein < 2.0 g/dL Body Fluid Albumin < 0.6 g/dL Body Fluid Lactate Dehydrogenase 73 U/L C-Reactive Protein, Quantitative 40.60 H 0.5-3.0 mg/L Procalcitonin 0.16 0.05-0.5 ng/mL Thyroid Stimulating Hormone (TSH) 21.61 H 0.36-3.74 uIU/mL Free Thyroxine (T4) Direct 1.11 0.76-1.46 ng/dL Free Triiodothyronine (T3) pg/mL 1.74 L 2.18-3.98 pg/mL Test 06/25/24 10:31 06/25/24 09:50 06/25/24 08:12 Range/Units Erythrocyte Sedimentation Rate 29 0-30 MM/HR Urine Color LIGHT-YELLOW YELLOW Urine Appearance CLOUDY H CLEAR Urine pH 6.5 5.0-8.0 Urine Specific [place] 1.008 1.001-1.031 Urine Protein NEGATIVE NEGATIVE mg/dL Urine Glucose (UA) NEGATIVE NEGATIVE mg/dL Urine Ketones NEGATIVE NEGATIVE mg/dL Urine Occult Blood NEGATIVE NEGATIVE Urine Nitrate NEGATIVE NEGATIVE Urine Bilirubin NEGATIVE NEGATIVE mg/dL Urine Urobilinogen 0.2 0.2-1.0 mg/dL Urine Leukocyte Esterase NEGATIVE NEGATIVE Tobi/uL Urine RBC 2-5 H 0-1 /HPF Urine WBC 2-5 H 0-1 /HPF Urine Squamous Epithelial Cells MANY 0-2 /HPF Urine Bacteria FEW None Seen /HPF Prothrombin Time 15.3 H 9.6-11.6 SEC Prothromb Time International Ratio 1.46 H 0.85-1.15 Activated Partial Thromboplast Time 36.8 H 26.3-35.5 SEC Lactic Acid Level 1.4 0.8-2.5 mmol/L Direct Bilirubin 0.3 0.0-0.3 mg/dL Ammonia 71 H 11-32 umol/L Troponin I High Sensitivity 7 4-50 ng/L Lipase 27 16-77 U/L Current Medications Medications (Trade) Dose Ordered Sig/Carmita Route PRN Reason Start Time Stop Time Status Last Admin Dose Admin Acetaminophen (TYLenol 500MG TAB) 500 mg Q6H PRN PO MILD PAIN (1-3) 06/25/24 10:30 07/25/24 10:29 Albuterol (DUOneb) 1 udvial Q6H PRN IH SHORTNESS OF BREATH 06/25/24 10:30 07/25/24 10:29 Ceftriaxone Sodium (ROCEphine 1G INJ) 1 gm Q12H IVPB 06/25/24 10:30 07/05/24 10:29 06/25/24 21:43 1 GM Doxycycline Hyclate (Doxycycline Hyclate) 100 mg Q12H PO 06/25/24 10:30 07/05/24 10:29 06/25/24 21:43 100 MG Furosemide (LASix 40MG TAB) 40 mg DAILY PO 06/26/24 09:00 07/26/24 08:59 Insulin Human Regular (humuLIN R 100 UNIT/ML 3ML) INSULIN SLIDING SCAL... ACHS SQ 06/25/24 16:30 07/25/24 16:29 Lactulose (Constulose 20gm/ 30ml Udcup) 20 gm TID PO 06/25/24 14:00 07/25/24 13:59 06/25/24 20:03 20 GM Levothyroxine Sodium (SYNTHroid 150MCG TAB) 150 mcg DAILY@0630 PO 06/26/24 06:30 07/26/24 06:29 06/26/24 05:51 150 MCG Magnesium Sulfate 50 ml @ 0 mls/hr PROTOCOL IV 06/25/24 10:30 07/25/24 10:29 06/25/24 20:02 25 MLS/HR Ondansetron HCl (zoFRAN 4MG INJ) 4 mg Q6H PRN IVP NAUSEA/VOMITING 06/25/24 10:30 07/25/24 10:29 Pantoprazole Sodium (PROTonix 40MG INJ) 40 mg Q24H IVP 06/25/24 10:30 06/25/24 20:50 DC 06/25/24 13:32 40 MG Pantoprazole Sodium (PROTonix 40MG TAB) 40 mg DAILY PO 06/26/24 09:00 07/26/24 08:59 Potassium Chloride 100 ml @ 100 mls/hr AD PRN IV POTASSIUM PROTOCOL 06/25/24 10:30 07/25/24 10:29 Potassium Chloride (K-Dur/Klor-Con 20meq) 20 meq AD PRN PO POTASSIUM PROTOCOL 06/25/24 10:30 07/25/24 10:29 Potassium Chloride (KCl 10% Elixir 20meq/15ml) 20 meq AD PRN PO POTASSIUM PROTOCOL 06/25/24 10:30 07/25/24 10:29 Propranolol HCl (Inderal) 10 mg BID PO 06/25/24 21:00 07/25/24 20:59 06/25/24 21:43 10 MG Rifaximin (Xifaxan) 550 mg Q12H PO 06/25/24 10:30 07/25/24 10:29 06/25/24 21:43 550 MG Spironolactone (Aldactone 25mg) 100 mg DAILY PO 06/26/24 09:00 07/26/24 08:59 DIAGNOSTICS / RADIOLOGY: ASSESSMENT: Decompensated liver cirrhosis with significant generalized anasarca and tense ascites, POA 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 with pleural effusion, POA Rule out developing community-acquired pneumonia of the right lung, POA Severe generalized anasarca due to underlying cirrhosis, POA Suspected IZZY, POA Streaky hemoptysis with forceful coughing x4 months, POA Hypothyroidism poorly controlled, POA Hypertension, POA Hyperlipidemia, POA Thrombocytopenia and coagulopathy secondary to underlying cirrhosis, POA Macrocytic anemia, POA Underlying history of type 2 diabetes mellitus, POA Elevated ammonia, POA PLAN: We will request IR to perform diagnostic and therapeutic paracentesis Patient will be placed on fluid restrictions of 1.5 L Patient received high-dose IV Lasix in the ER of 80 mg, we will monitor urine output closely, discussed with patient that she will need to have the doses of her diuretics slowly up titrated as outpatient to assist with management of anasarca and ascites, we will resume Lasix and Aldactone tonight, monitor blood pressure trend closely given high-dose Lasix received earlier in the ER Patient is not showing overt signs of confusion, ammonia is elevated, we will start patient on lactulose 20 g t.i.d., titrate to maintain at least 2-3 bowel movements daily, we will also start rifaximin 550 mg b.i.d. Chest x-ray shows right-sided infiltrates with likely pleural effusion, patient may have underlying hepatic hydrothorax, we will obtain CT chest without contrast of pleural effusion, patient reports having episodes of streaky hemoptysis especially with episodes of forceful coughing for the past four months,, we will obtain sputum culture, we will maintain patient on IV antibiotics with Rocephin and doxycycline TSH is significantly elevated around 22, we will obtain home dose of levothyroxine that patient takes at home, we will obtain endocrinology consultation, for optimization of hypothyroidism Patient will be placed on sliding scale insulin a.c. and HS Monitor BMP closely, we will repeat labs in the morning, electrolytes will be repleted per protocol GI prophylaxis with Protonix, Anticipate hospitalization for 48-72 hours Patient may have underlying episodes of sleep apnea, she will benefit from sleep study as outpatient to rule out IZZY Prognosis: Guarded, Plan of care was discussed with patient at bedside, Advanced Care Planning: Which of the following were discussed: Hospice care: Yes __ No _X_ Therapeutic options: Yes _X_ No __ Advance directives: Yes _X_ No __ Other discussions: Discussed with who?: Patient Voluntary nature of this service was explained to the patient? Yes _x_ No __ Amount of time spent: 20 minutes ATTESTATION BY PHYSICIAN I have seen and examined the patient. I reviewed the documentation, medical decision making, and treatment plan as noted by the resident provider above. I agree with the findings and plan of care. Veda Gan MD, PRIYA N Jun 26, 2024 09:51
--- NOTE | 2024-06-26 17:35 | CONS ---
[facility] CONSULTATION NOTE Date Patient Seen: Jun 26, 2024 Time of Visit: 1207 Supervising Physician: Dr. Veloz Reason for Consultation: Hemoptysis possible hepatic hydrothorax Inpatient Consults: SHWETA PROBLEM LIST: Decompensated liver cirrhosis MELD SCORE 12 Reoccurrence ascites s/p paracentesis by IR1 L removed 06/25/2024 Anasarca Mild bilateral pleural effusion right greater than left per CT chest 06/25/2024 Undiagnosed untreated obstructive sleep apnea STOP-BANG score six Streaky hemoptysis with forceful coughing x4 months, POA Hypothyroidism poorly controlled, POA Hypertension, POA Hyperlipidemia, POA Thrombocytopenia and coagulopathy secondary to underlying cirrhosis, POA Macrocytic anemia, POA Underlying history of type 2 diabetes mellitus, POA Elevated ammonia, POA HPI: his is a 58-year-old female with underlying history of liver cirrhosis secondary to fatty liver disease, hypertension, hyperlipidemia, hypothyroidism, obesity with history of frequent paracentesis due to large volume ascites who presented to the ER with chief complaint of progressive abdominal distention with shortness of breath. She was last hospitalized in [facility] [place]10/2024 and underwent large volume paracentesis with drainage of 4.3 L of ascitic fluid. Patient states that she is maintained on low-dose diuretics with Lasix and Aldactone as outpatient and is followed by Dr. Mata with GI as outpatient. She denies any hematemesis, melena hematochezia. She has noticed that she gets streaks of hemoptysis with forceful coughing over the last four months. Abdominal distention has worsened over the past two weeks and reports having significant weight gain. She drinks about 1 L of fluid daily and she has been maintaining fluid restrictions. She reports snoring at night and she is unsure if she has been diagnosed with sleep apnea as outpatient. She denies sign ificant confusion. She takes lactulose daily at home and reports having 1-2 bowel movements daily. Patient was seen and examined at bedside with no family present. Patient is awake alert able to answer simple questions appropriately. Patient is on room air appears to be tolerating well. At time of visit patient denies chest pain does report shortness of breath upon minimal to moderate exertion. Patient denies nausea vomiting or abdominal pain. Pulmonology were consulted for hemoptysis and possible hepatic hydrothorax. Thank you for allowing us to participate in the care of this patient recommendations listed below we will co rick to monitor while patient is in the hospital. Plan summary Obtain consent for right-sided thoracentesis to be done 06/27/[address] Veloz Send out for fluid analysis Recommend discontinue antibiotics Continue to monitor respiratory status and maintain adequate oxygenation Keep O2 sats greater or equal to 90% Patient will require 6 minute walk prior to discharge for home oxygen evaluation Patient will need a follow up appointment with Dr. Hodges radio television announcer for outpatient sleep study Rest of the care per primary team PAST MEDICAL HX: see above PAST SURGICAL HX: noncontributory SOCIAL HISTORY: No tobacco, ETOH, or illicit drug use Coded Allergies: No Known Allergies (Unverified Allergy, Unknown, 04/24/24) morphine (Unverified Allergy, Unknown, 05/25/24) REVIEW OF SYSTEMS: 12 point ROS reviewed with patient. Pertinent positives mentioned above. Oth erwise negative. PHYSICAL EXAM: GENERAL: alert, weak, awake oriented x 3 HEENT: EOMI, Sclera non icteric, moist mucosa NECK: Supple, no JVD, trachea midline LUNGS: Clear breath sounds bilaterally. No wheezes HEART: Regular rate and rhythm. Normal S1 and S2, without murmurs ABD: Abdomen soft, nontender. Bowel sounds present EXT: No clubbing cyanosis or edema NEURO: Alert and oriented to person, follows commands Vital Signs (last 8hr) Date Time Temp Pulse Resp B/P (MAP) Pulse Ox O2 Delivery O2 Flow Rate FiO2 06/26/24 16:25 98.8 67 18 111/55 99 Room Air 06/26/24 11:54 98.8 69 18 117/57 96 Room Air LABS: Hematology Labs: Test 06/26/24 04:31 06/25/24 10:31 Range/Units White Blood Count 4.3 L 4.8-10.8 K/uL Red Blood Count 3.08 L 4.00-5.50 MIL/uL Hemoglobin 9.9 L 12.0-16.0 g/dL Hematocrit 30.6 L 36-48 % Mean Corpuscular Volume 99.4 H 79-99 fL Mean Corpuscular Hemoglobin 32.1 27.0-33.0 pg Mean Corpuscular Hemoglobin Concent 32.4 32.0-36.0 g/dL Red Cell Distribution Width 15.9 H 11.0-15.5 % Platelet Count 91 L 130-400 K/uL Mean Platelet Volume 10.3 7.5-10.5 fL Immature Granulocyte % (Auto) 0.2 0-1 % Neutrophils (%) (Auto) 53.1 40.0-77.0 % Lymphocytes (%) (Auto) 21.1 21.0-51.0 % Monocytes (%) (Auto) 20.9 H 3.0-13.0 % Eosinophils (%) (Auto) 4.2 0.0-8.0 % Basophils (%) (Auto) 0.5 0.0-5.0 % Neutrophils # (Auto) 2.3 1.8-7.7 K/uL Lymphocytes # (Auto) 0.9 L 1.0-4.8 K/uL Monocytes # (Auto) 0.9 0.1-1.0 K/uL Eosinophils # (Auto) 0.18 0.00-0.70 K/uL Basophils # (Auto) 0.02 0.00-0.20 K/uL Absolute Immature Granulocyte (auto 0.01 0-1 K/uL Nucleated Red Blood Cells 0.0 0.0-0.19 % Erythrocyte Sedimentation Rate 29 0-30 MM/HR Chemistry Labs: Test 06/26/24 10:28 06/26/24 04:31 06/25/24 10:35 06/25/24 08:12 Range/Units Whole Blood Glucose 185 #H 70-110 MG/DL Sodium Level 143 136-145 mmol/L Potassium Level 3.7 3.5-5.1 mmol/L Chloride Level 110 101-111 mmol/L Carbon Dioxide Level 25 21-32 mmol/L Blood Urea Nitrogen 12 7-18 mg/dL Creatinine 0.8 0.5-1.0 mg/dL Glomerular Filtration Rate Calc 85 >90 mL/min Random Glucose 109 #H 70-105 mg/dL Total Calcium 7.9 L 8.5-10.1 mg/dL Magnesium Level 2.00 1.80-2.40 mg/dL Total Bilirubin 1.6 H 0.2-1.0 mg/dL Aspartate Amino Transf (AST/SGOT) 61 H 10-37 U/L Alanine Aminotransferase (ALT/SGPT) 27 12-78 U/L Alkaline Phosphatase 151 #H 50-136 U/L Total Protein 5.7 L 6.0-8.3 g/dL Albumin 2.0 L 3.5-5.0 g/dL C-Reactive Protein, Quantitative 40.60 H 0.5-3.0 mg/L Procalcitonin 0.16 0.05-0.5 ng/mL Thyroid Stimulating Hormone (TSH) 21.61 H 0.36-3.74 uIU/mL Free Thyroxine (T4) Direct 1.11 0.76-1.46 ng/dL Free Triiodothyronine (T3) pg/mL 1.74 L 2.18-3.98 pg/mL Lactic Acid Level 1.4 0.8-2.5 mmol/L Direct Bilirubin 0.3 0.0-0.3 mg/dL Ammonia 71 H 11-32 umol/L Troponin I High Sensitivity 7 4-50 ng/L Lipase 27 16-77 U/L Coagulation Labs: Test 06/25/24 08:12 Range/Units Prothrombin Time 15.3 H 9.6-11.6 SEC Prothromb Time International Ratio 1.46 H 0.85-1.15 Activated Partial Thromboplast Time 36.8 H 26.3-35.5 SEC DIAGNOSTICS / RADIOLOGY RESULTS: na PLAN NEURO: Minimize central acting medications as possible. Maintain fall precautions, adequate lighting during the day PULMONARY: Supplemental 02 as needed. Maintain aspiration precautions at all times CARDIOVASCULAR: Follow hemodynamics. Vital signs per facility protocol GI & NUTRITION: Continue with nutritional support. Continue stool softeners and laxatives as needed. KIDNEYS & ELECTROLYTES: Strict monitoring of intake, output and overall fluid balance. Avoid nephrotoxic medications to the extent possible. Medications to be dosed according to renal function. Monitor electrolytes and replace as needed ENDOCRINE: Maintain blood glucose between 100-180 at all times. Hypoglycemia protocol in place INFECTIOUS DISEASE: Trend temperature, WBC and procalcitonin level Follow cultures, deescalate antibiotics as soon as possible. Panculture if new onset fever ONCOLOGY/HEMATOLOGY/COAGULATION: Monitor for s/s of bleeding Monitor hemoglobin, coagulation studies as needed SKIN: Pressure ulcer prevention per facility protocol Specialty mattress ORTHO/REHAB: Continue PT/OT Prophylaxis: Continue GI and DVT prophylaxis Code Status: Full Resuscitation Disposition: Per primary team Other: Case discussed with supervising physician plan of care agreed upon MARIANNA ALONSO Jun 26, 2024 17:35
[2024-06-26] MEDS: acetaMINOPHEN 500 MG TABLET PO PRN (19:31)
--- NOTE | 2024-06-26 20:05 | NUR ---
MEDS SHIFT ASSESSMENT DONE, PLEASE REFER TO CHART. DUE MEDS ADMINISTERED, TOLERATED WELL. KEPT RESTED AND COMFORTABLE IN BED. CALL LIGHT WITHIN REACH.
--- NOTE | 2024-06-26 21:16 | PN ---
endocrinology progress note Date of Service: Jun 26, 2024 subjective: levothyroxine dose has been increased from 137 mcg to 150 mcg daily. Labs on presentation showed PT INR of 1.46, PTT of 36.8. CMP remarkable for sodium of 141, potassium 4.5, creatinine 0.9, blood glucose of 115, AST of 89, ALT of 33, alkaline phosphatase of 203, ammonia of 71, albumin of 1.9. she has hypothyroidism for many years and home regimen levothyroxine 137 mcg daily. TSH 21.6 and t 4 free 1.11 REVIEW OF SYSTEMS CONSTITUTIONAL: Denies fevers, chills, or night sweats. No unintentional weight loss reported. NEUROLOGICAL: Denies headache, amaurosis fugax, motor weakness, sensory deficit, vertigo/spinning sensation, gait abnormalities, or tremors. ENT: No hearing loss, otalgia, otorrhea, rhinitis, rhinorrhea, hoarseness, or sore throat. CARDIOVASCULAR: Denies any exertional angina, dyspnea on exertion, orthopnea, paroxysmal nocturnal dyspnea, palpitations, life-threatening arrhythmias, claudication. PULMONARY: Episodes of streaky hemoptysis, shortness of breath at night, episodes of apnea at night SLEEP: Denies morning headaches, daytime somnolence or napping. Denies difficulty falling asleep, staying asleep, waking from sleep. Denies knowledge of snoring. GASTROINTESTINAL: Abdominal distention, weight gain, nausea GENITOURINARY: Denies frequency, urgency, nocturia, hematuria or incontinence (Storage/Irritative symptoms.) Low urinary stream, straining to void, urinary intermittency or hesitancy, splitting of the voiding stream, terminal dribbling. ENDOCRINOLOGIC: Denies polyuria, polydipsia, polyphagia or heat/cold intolerances. HEMATOLOGIC: Denies thrombophilia/previous clots, or coagulopathy/bleeding disorders. ONCOLOGIC: Denies personal history of malignancy. DERMATOLOGIC: Denies rashes or pruritus. PSYCHIATRIC: Denies any suicidal or homicidal ideation. Denies hallucinations. PAST MEDICAL HISTORY: Liver cirrhosis secondary to nonalcoholic fatty liver disease, hypothyroidism, hypertension, hyperlipidemia, type 2 diabetes mellitus, history of ascites requiring paracentesis x2 in May, PAST SURGICAL HISTORY: Previous therapeutic paracentesis x2 in May, PAST SOCIAL HISTORY: Patient is a previous smoker, currently denies active alcohol consumption or smoking FAMILY HISTORY: Denies pertinent family history Allergies: Patient reports having allergic reaction to morphine Home medications: No home medications available at bedside to be reconciled, family will be bringing home medication list to be reconciled and updated. Coded Allergies: No Known Allergies (Unverified Allergy, Unknown, 04/24/24) morphine (Unverified Allergy, Unknown, 05/25/24) DIAGNOSTICS / RADIOLOGY: SERVICE 9 REASON: sob ORDERING PHYSICIAN: REESE FAY MD PROCEDURE: CXR1VW - CHEST 1VW CHEST 1VW HISTORY: Shortness of breath COMPARISON: June 10, 2024 FINDINGS: A frontal projection of the chest was obtained. There are bilateral pulmonary infiltrates suggestive of pulmonary vascular congestion with possible superimposed pneumonitis. The heart is borderline enlarged. Degenerative changes are seen. No evidence of aortic calcification is seen. IMPRESSION: 1. Bilateral pulmonary infiltrates are seen suggestive of pulmonary vascular congestion with possible superimposed pneumonitis. DICTATED BY: GIDEON KOEHLER MD DATE: 06/25/24931 ELECTRONICALLY SIGNED BY: GIDEON KOEHLER MD DATE: 06/25/24934 ASSESSMENT: uncontrolled primary hypothyroidism she has hypothyroidism for many years and home regimen levothyroxine 137 mcg daily. tsh is elevated, so recommend to increase levothyroxine dose. 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, POA Severe generalized anasarca due to underlying cirrhosis, POA Suspected IZZY, POA Streaky hemoptysis with forceful coughing x4 months, POA Hypertension, POA Hyperlipidemia, POA Thrombocytopenia and coagulopathy secondary to underlying cirrhosis, POA Macrocytic anemia, POA Underlying history of type 2 diabetes mellitus, POA Elevated ammonia, POA PLAN: continue levothyroxine 150 mcg daily educated on hypothyroidism repeat thyroid labs in 6 weeks Vitals/Labs Vital Signs Date Time Temp Pulse Resp B/P (MAP) Pulse Ox O2 Delivery O2 Flow Rate FiO2 06/26/24 20:00 98.2 70 19 120/58 98 Room Air 06/26/24 07:40 0 21 Laboratory Tests 06/26/24 04:31 Medications Current Medications Furosemide 80 mg ONCE ONCE IVP Last administered on 06/25/24at 08:42; Start 06/25/24 at 09:00; Stop 06/25/24 at 09:01; Status DC Lactulose 20 gm ONCE ONCE PO Last administered on 06/25/24at 13:21; Start 06/25/24 at 09:30; Stop 06/25/24 at 09:31; Status DC Pantoprazole Sodium 40 mg Q24H IVP Last administered on 06/25/24at 13:32; Start 06/25/24 at 10:30; Stop 06/25/24 at 20:50; Status DC Rifaximin 550 mg Q12H PO Last administered on 06/26/24at 20:03; Start 06/25/24 at 10:30; Stop 07/25/24 at 10:29 Ceftriaxone Sodium 1 gm Q12H IVPB Last administered on 06/26/24at 09:49; Start 06/25/24 at 10:30; Stop 06/26/24 at 17:26; Status DC Doxycycline Hyclate 100 mg Q12H PO Last administered on 06/26/24at 09:48; Start 06/25/24 at 10:30; Stop 06/26/24 at 17:26; Status DC Acetaminophen 500 mg Q6H PRN PO Last administered on 06/26/24at 19:31; Start 06/25/24 at 10:30; Stop 07/25/24 at 10:29 Ondansetron HCl 4 mg Q6H PRN IVP; Start 06/25/24 at 10:30; Stop 07/25/24 at 10:29 Albuterol 1 udvial Q6H PRN IH; Start 06/25/24 at 10:30; Stop 07/25/24 at 10:29 Lactulose 20 gm TID PO Last administered on 06/26/24at 20:02; Start 06/25/24 at 14:00; Stop 07/25/24 at 13:59 Potassium Chloride 100 ml @ 100 mls/hr AD PRN IV; Start 06/25/24 at 10:30; Stop 07/25/24 at 10:29 Potassium Chloride 20 meq AD PRN PO; Start 06/25/24 at 10:30; Stop 07/25/24 at 10:29 Potassium Chloride 20 meq AD PRN PO; Start 06/25/24 at 10:30; Stop 07/25/24 at 10:29 Magnesium Sulfate 50 ml @ 0 mls/hr PROTOCOL IV Last administered on 06/25/24at 20:02; Start 06/25/24 at 10:30; Stop 07/25/24 at 10:29 Albumin Human 200 ml @ As Directed STK-MED ONCE IV; Start 06/25/24 at 10:59; Stop 06/25/24 at 11:00; Status DC Insulin Human Regular INSULIN SLIDING SCAL... ACHS SQ Last administered on 06/26/24at 13:15; Start 06/25/24 at 16:30; Stop 07/25/24 at 16:29 Levothyroxine Sodium 150 mcg DAILY@0630 PO Last administered on 06/26/24at 05:51; Start 06/26/24 at 06:30; Stop 07/26/24 at 06:29 Furosemide 40 mg DAILY PO Last administered on 06/26/24at 09:48; Start 06/26/24 at 09:00; Stop 07/26/24 at 08:59 Propranolol HCl 10 mg BID PO Last administered on 06/26/24at 20:02; Start 06/25/24 at 21:00; Stop 07/25/24 at 20:59 Pantoprazole Sodium 40 mg DAILY PO Last administered on 06/26/24at 09:48; Start 06/26/24 at 09:00; Stop 07/26/24 at 08:59 Spironolactone 100 mg DAILY PO Last administered on 06/26/24at 09:48; Start 06/26/24 at 09:00; Stop 07/26/24 at 08:59 JEANMARIE ABAD MD Jun 26, 2024 21:16
[2024-06-27] VITALS (7 sets, daily range): BP systolic 103–130; BP diastolic 42–66; PULSE 64–67; RESP 16–19; TEMP 98.1–99.2; O2SAT 96–97
[2024-06-27 04:28] LABS: BASOPHILS # (AUTO) 0.02 K/uL (0.00-0.20); BASOPHILS % (AUTO) 0.5 % (0.0-5.0); EOSINOPHILS # (AUTO) 0.18 K/uL (0.00-0.70); EOSINOPHILS % (AUTO) 4.8 % (0.0-8.0); HEMATOCRIT 30.5 % (36-48); IMMATURE GRANULOCYTE ABSOLUTE 0.01 K/uL (0-1); LYMPHOCYTES # (AUTO) 0.9 K/uL (1.0-4.8); LYMPHOCYTES % (AUTO) 24.6 % (21.0-51.0); MEAN CORPUSCULAR HEMOGLOBIN 32.8 pg (27.0-33.0); MEAN CORPUSCULAR HGB CONC 33.1 g/dL (32.0-36.0); MONOCYTES # (AUTO) 0.9 K/uL (0.1-1.0); NEUTROPHILS # (AUTO) 1.8 K/uL (1.8-7.7); NEUTROPHILS % (AUTO) 46.8 % (40.0-77.0); PLATELET COUNT (AUTO) 80 K/uL (130-400); RED BLOOD CELL COUNT(AUTO) 3.08 MIL/uL (4.00-5.50); RED CELL DISTRIBUTION WIDTH 15.9 % (11.0-15.5); WHITE BLOOD COUNT (AUTO) 3.8 K/uL (4.8-10.8)
[2024-06-27 04:56] LABS: INR 1.59 (0.85-1.15); PROTHROMBIN TIME 16.6 SEC (9.6-11.6)
[2024-06-27 04:58] LABS: PARTIAL THROMBOPLASTIN TIME 37.5 SEC (26.3-35.5)
[2024-06-27 05:15] LABS: ALBUMIN 1.8 g/dL (3.5-5.0); BILIRUBIN,TOTAL 1.5 mg/dL (0.2-1.0); CREATININE 0.9 mg/dL (0.5-1.0); MAGNESIUM 1.8 mg/dL (1.80-2.40); POTASSIUM 3.7 mmol/L (3.5-5.1); TOTAL PROTEIN, SERUM 5.4 g/dL (6.0-8.3)
--- NOTE | 2024-06-27 05:40 | NUR ---
MEDS PT ASSISTED TO RE-POSITION HERSELF IN BED COMFORTABLY WITH HOB ELEVATED. PIV NOTED TO BE LEAKING, DISCONTINUED SITE WITH CATHETER INTACT. RE-INSERTED PIV G20 TO RT HAND AND MG IV HUNG FOR REPLACEMENT. DUE MEDS ADMINISTERED, TOLERATED WELL. CALL LIGHT WITHIN REACH. FOR MORE CARE.
--- NOTE | 2024-06-27 11:10 | PRN ---
Procedure performed: Thoracentesis Intraoperative US Body site: Right chest Description of procedure: Consent obtained Time out done Hand hygiene Intraoperative US used to localize pleural fluid and radha the skin at puncture site. Thoracentesis tray used. [2000] ml of Pleural fluid drained Fluid is sent for analysis. Pt tolerated procedure well Post procedure chest x ray was ordered ANGELO NUNO MD Jun 27, 2024 11:10
[2024-06-27] MEDS: LIDOCAINE HCL 1% 20 ML VIAL INJ ONE (11:26)
--- NOTE | 2024-06-27 11:34 | PN ---
[facility] PROGRESS NOTE Date of Service: Jun 27, 2024 Time of Service: 11:25 SUBJECTIVE: 06/25 - Patient is a 58 year old female, Hungarian speaking, with a past medical history liver cirrhosis secondary to fatty liver disease, hypertension, hyperlipidemia, hypothyroidism, and obesity with a history of frequent large volume paracentesis. Patient last admission was 06/10 for large volume para centesis with drainage of 4.3L of ascitic acid. Upon admission patient had elevated TSH, Dr. Thomas, endocrinology was consulted. Per Endocrinology, levothyroxine will be increased to 150mcg daily and will have her labs repeated in 6 weeks outpatient. Possible paracentesis pending. Will continue to follow recommendations per Pulmonology. Patient remains on Lasix 40 mg QD, spirolactone 100 mg QD, lactulose 20 gm TID, doxycycline and Rocephin. Remarkable labs: white count 4.3, H&H stable, platelets down from 111 to 91K. Chemistries are unremarkable. Pending ascites culture results from 1L removal upon admission. 06/27/24 patient is seen and examined with Dr. Davis. Reviewed chart patient is fully awake alert oriented x3. status post paracentesis 06/25/24 patient is being followed by rug cleaner helper's status post right-sided thoracentesis at bedside 2000 mL removed. Patient on room air saturations above 97%. REVIEW OF SYSTEMS CONSTITUTIONAL: Denies fevers, chills, or night sweats. No unintentional weight loss reported. NEUROLOGICAL: Denies headache, amaurosis fugax, motor weakness, sensory deficit, vertigo/spinning sensation, gait abnormalities, or tremors. ENT: No hearing loss, otalgia, otorrhea, rhinitis, rhinorrhea, hoarseness, or sore throat. CARDIOVASCULAR: Denies any exertional angina, dyspnea on exertion, orthopnea, paroxysmal nocturnal dyspnea, palpitations, life-threatening arrhythmias, claudication. PULMONARY: Episodes of streaky hemoptysis, shortness of breath at night, episodes of apnea at night SLEEP: Denies morning headaches, daytime somnolence or napping. Denies difficulty falling asleep, staying asleep, waking from sleep. Denies knowledge of snoring. GASTROINTESTINAL: Abdominal distention, weight gain, nausea GENITOURINARY: Denies frequency, urgency, nocturia, hematuria or incontinence (Storage/Irritative symptoms.) Low urinary stream, straining to void, urinary intermittency or hesitancy, splitting of the voiding stream, terminal dribbling. ENDOCRINOLOGIC: Denies polyuria, polydipsia, polyphagia or heat/cold intolerances. HEMATOLOGIC: Denies thrombophilia/previous clots, or coagulopathy/bleeding disorders. ONCOLOGIC: Denies personal history of malignancy. DERMATOLOGIC: Denies rashes or pruritus. PSYCHIATRIC: Denies any suicidal or homicidal ideation. Denies hallucinations. PHYSICAL EXAM GENERAL APPEARANCE: The patient is awake, alert, and oriented, in no acute cardiopulmonary distress. NEUROLOGICAL: Cranial nerves II-XII grossly intact. Motor is 5/5 in bilateral upper and lower extremities proximal to distal. No sensory deficits. HEENT: Face is symmetric. Pupils are equal and reactive. Extraocular movements are intact. NECK: Supple. No JVD. No thyromegaly. No submental, submandibular, pre- /postauricular, occipital or supraclavicular lymphadenopathy. CHEST: Normal chest expansion. No Telemetry. LUNGS: Decreased breath sound of the right lung base with crackles CARDIOVASCULAR: Regular. S1 and S2 normal. No appreciable rubs, murmurs or gallops. ABDOMEN: Abdomen is distended with fluid wave noted, generalized anasarca noted : Deferred. No Levine. EXTREMITIES: 2+ pitting edema noted of bilateral lower extremities SKIN: No skin breakdown. Vital Signs (last 8hr) Date Time Temp Pulse Resp B/P (MAP) Pulse Ox O2 Delivery O2 Flow Rate FiO2 06/27/24 08:00 99.1 64 17 103/47 97 Room Air 21 06/27/24 04:00 98.6 64 19 121/66 97 Room Air LABS: Laboratory: Test 06/27/24 05:01 06/27/24 03:29 Range/Units Whole Blood Glucose 104 70-110 MG/DL White Blood Count 3.8 L 4.8-10.8 K/uL Red Blood Count 3.08 L 4.00-5.50 MIL/uL Hemoglobin 10.1 L 12.0-16.0 g/dL Hematocrit 30.5 L 36-48 % Mean Corpuscular Volume 99.0 79-99 fL Mean Corpuscular Hemoglobin 32.8 27.0-33.0 pg Mean Corpuscular Hemoglobin Concent 33.1 32.0-36.0 g/dL Red Cell Distribution Width 15.9 H 11.0-15.5 % Platelet Count 80 L 130-400 K/uL Mean Platelet Volume 10.1 7.5-10.5 fL Immature Granulocyte % (Auto) 0.3 0-1 % Neutrophils (%) (Auto) 46.8 40.0-77.0 % Lymphocytes (%) (Auto) 24.6 21.0-51.0 % Monocytes (%) (Auto) 23.0 H 3.0-13.0 % Eosinophils (%) (Auto) 4.8 0.0-8.0 % Basophils (%) (Auto) 0.5 0.0-5.0 % Neutrophils # (Auto) 1.8 1.8-7.7 K/uL Lymphocytes # (Auto) 0.9 L 1.0-4.8 K/uL Monocytes # (Auto) 0.9 0.1-1.0 K/uL Eosinophils # (Auto) 0.18 0.00-0.70 K/uL Basophils # (Auto) 0.02 0.00-0.20 K/uL Absolute Immature Granulocyte (auto 0.01 0-1 K/uL Nucleated Red Blood Cells 0.0 0.0-0.19 % Prothrombin Time 16.6 H 9.6-11.6 SEC Prothromb Time International Ratio 1.59 H 0.85-1.15 Activated Partial Thromboplast Time 37.5 H 26.3-35.5 SEC Sodium Level 146 H 136-145 mmol/L Potassium Level 3.7 3.5-5.1 mmol/L Chloride Level 113 H 101-111 mmol/L Carbon Dioxide Level 25 21-32 mmol/L Blood Urea Nitrogen 14 7-18 mg/dL Creatinine 0.9 0.5-1.0 mg/dL Glomerular Filtration Rate Calc 74 >90 mL/min Random Glucose 103 70-105 mg/dL Total Calcium 7.7 L 8.5-10.1 mg/dL Magnesium Level 1.80 1.80-2.40 mg/dL Total Bilirubin 1.5 H 0.2-1.0 mg/dL Aspartate Amino Transf (AST/SGOT) 70 H 10-37 U/L Alanine Aminotransferase (ALT/SGPT) 30 12-78 U/L Alkaline Phosphatase 161 H 50-136 U/L Total Protein 5.4 L 6.0-8.3 g/dL Albumin 1.8 L 3.5-5.0 g/dL Current Medications Medications (Trade) Dose Ordered Sig/Carmita Route PRN Reason Start Time Stop Time Status Last Admin Dose Admin Acetaminophen (TYLenol 500MG TAB) 500 mg Q6H PRN PO MILD PAIN (1-3) 06/25/24 10:30 07/25/24 10:29 06/27/24 10:31 500 MG Albuterol (DUOneb) 1 udvial Q6H PRN IH SHORTNESS OF BREATH 06/25/24 10:30 07/25/24 10:29 Ceftriaxone Sodium (ROCEphine 1G INJ) 1 gm Q12H IVPB 06/25/24 10:30 06/26/24 17:26 DC 06/26/24 09:49 1 GM Doxycycline Hyclate (Doxycycline Hyclate) 100 mg Q12H PO 06/25/24 10:30 06/26/24 17:26 DC 06/26/24 09:48 100 MG Furosemide (LASix 40MG TAB) 40 mg DAILY PO 06/26/24 09:00 07/26/24 08:59 06/26/24 09:48 40 MG Insulin Human Regular (humuLIN R 100 UNIT/ML 3ML) INSULIN SLIDING SCAL... ACHS SQ 06/25/24 16:30 07/25/24 16:29 06/26/24 13:15 4 UNIT Lactulose (Constulose 20gm/ 30ml Udcup) 20 gm TID PO 06/25/24 14:00 07/25/24 13:59 06/26/24 20:02 20 GM Levothyroxine Sodium (SYNTHroid 150MCG TAB) 150 mcg DAILY@0630 PO 06/26/24 06:30 07/26/24 06:29 06/27/24 05:36 150 MCG Magnesium Sulfate 50 ml @ 0 mls/hr PROTOCOL IV 06/25/24 10:30 07/25/24 10:29 06/27/24 05:36 25 MLS/HR Ondansetron HCl (zoFRAN 4MG INJ) 4 mg Q6H PRN IVP NAUSEA/VOMITING 06/25/24 10:30 07/25/24 10:29 Pantoprazole Sodium (PROTonix 40MG INJ) 40 mg Q24H IVP 06/25/24 10:30 06/25/24 20:50 DC 06/25/24 13:32 40 MG Pantoprazole Sodium (PROTonix 40MG TAB) 40 mg DAILY PO 06/26/24 09:00 07/26/24 08:59 06/27/24 09:42 40 MG Potassium Chloride 100 ml @ 100 mls/hr AD PRN IV POTASSIUM PROTOCOL 06/25/24 10:30 07/25/24 10:29 Potassium Chloride (K-Dur/Klor-Con 20meq) 20 meq AD PRN PO POTASSIUM PROTOCOL 06/25/24 10:30 07/25/24 10:29 Potassium Chloride (KCl 10% Elixir 20meq/15ml) 20 meq AD PRN PO POTASSIUM PROTOCOL 06/25/24 10:30 07/25/24 10:29 Propranolol HCl (Inderal) 10 mg BID PO 06/25/24 21:00 07/25/24 20:59 06/26/24 20:02 10 MG Rifaximin (Xifaxan) 550 mg Q12H PO 06/25/24 10:30 07/25/24 10:29 06/27/24 09:42 550 MG Spironolactone (Aldactone 25mg) 100 mg DAILY PO 06/26/24 09:00 07/26/24 08:59 06/26/24 09:48 100 MG DIAGNOSTICS / RADIOLOGY: [ ] ASSESSMENT: Decompensated liver cirrhosis with significant generalized anasarca and tense ascites, POA s/p paracentitis 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 Rule out developing community-acquired pneumonia of the right lung, POA Severe generalized anasarca due to underlying cirrhosis, POA Suspected IZZY, POA Streaky hemoptysis with forceful coughing x4 months, POA Hypothyroidism poorly controlled, POA Hypertension, POA Hyperlipidemia, POA Thrombocytopenia and coagulopathy secondary to underlying cirrhosis, POA Macrocytic anemia, POA Underlying history of type 2 diabetes mellitus, POA Elevated ammonia, POA PLAN: consult: Clothespin Drier Operator's following s/p paracentesis 06/26/2024 status post thoracentesis 2000 removal 06/27/2024 - fluid restriction: 1.5 liter restrict from Sodium intake - cont with diuretics 40 mg p.o. daily, spironolactone 100 p.o. daily We continue with liver cirrhosis regimen ammonia level ongoing surveillance. Continue lactulose twenty grand t.i.d.. Continue rifaximin sputum culture in process, continue IV Rocephin and doxycycline [facility] Intern following TSH elevated on admission started the patient on 150 mcg every a.m. levothyroxine Continue sliding scale insulin a.c. and HS Replace electrolytes to keep potassium above 4.0 magnesium above 2.0. All questions addressed Plan of care was discussed with patient at bedside, Case discussed with attending Dr. Davis agreed with plan of care. This document was generated in part using voice recognition software, occasional wrong word or sound alike substitutions may have occurred due to the inherent limitations of voice recognition software. Read the chart carefully and recognize using context, where the substitutions have occurred. Although every effort was made to edit the content, machine printer hose and typing errors may occur ATTESTATION BY PHYSICIAN I have seen and examined the patient. I reviewed the documentation, medical decision making, and treatment plan as noted by the mid-level provider above. I agree with the findings and plan of care. DAVID DAVIS MD, ELIZABETH NP Jun 27, 2024 11:34
--- NOTE | 2024-06-27 12:03 | HMCIMG ---
FRONTAL CHEST RADIOGRAPH INDICATION: post thoracentesis COMPARISON: 06/25/2024 CT chest FINDINGS/IMPRESSION: phototypesetting equipment monitor leads overlie the field of view. Small residual layering bilateral pleural effusions with subjacent passive atelectasis. No evidence for pneumothorax after thoracentesis.
[2024-06-27 14:18] LABS: TRIGLYCERIDES,BODY FLUID 188 mg/dL
[2024-06-27 14:59] LABS: BODY FLUID RBC 1246 /cu. mm.; BODY FLUID WBC 353 /cu. mm.
[2024-06-27 15:06] LABS: GLUCOSE PLEURAL FLUID 133; PROTEIN PLEURAL FLUID < 2.0 mg/dL
--- NOTE | 2024-06-27 15:24 | PN ---
[facility] PROGRESS NOTE Date Patient Seen: Jun 27, 2024 Time of Visit: 1058 Supervising Physician: Dr. VELOZ Inpatient Consults: BIS PROBLEM LIST: Decompensated liver cirrhosis MELD SCORE 12 Reoccurrence ascites s/p paracentesis by IR1 L removed 06/25/2024 Anasarca Mild bilateral pleural effusion right greater than left per CT chest 06/25/2024 s/p right-sided thoracentesis [address] Veloz 06/27/2024 Undiagnosed untreated obstructive sleep apnea STOP-BANG score six Streaky hemoptysis with forceful coughing x4 months, POA Hypothyroidism poorly controlled, POA Hypertension, POA Hyperlipidemia, POA Thrombocytopenia and coagulopathy secondary to underlying cirrhosis, POA Macrocytic anemia, POA Underlying history of type 2 diabetes mellitus, POA Elevated ammonia, POA INTERVAL HISTORY: 06/27 patient was seen and examined by bedside with no family present. Patient is awake alert able to answer simple questions appropriately. At time of visit patient has no specific complaints. Patient remains on room air is tolerating well. Denies chest pain or shortness of breadth. Denies nausea vomiting or abdominal pain. Patient had right-sided thoracentesis done today2 L have been removed. Post chest x-ray shows no evidence of pneumothorax. If fluid has been sent out for analysis. At this time patient remained stable from pulmonary standpoint, therefore pulmonology to sign off feel free to reconsult with any change in condition thank you for allowing us to participate in the care of this patient. Plan summary Pulmonology to sign off, is cleared from a pulmonary standpoint for discharge Follow up with fluid analysis, patient can follow up as an outpatient for results Continue Lasix and Aldactone, and propranolol Send out for fluid analysis Recommend discontinue antibiotics Continue to monitor respiratory status and maintain adequate oxygenation Keep O2 sats greater or equal to 90% Patient will require 6 minute walk prior to discharge for home oxygen evaluation Patient will need a follow up appointment with Dr. Hodges towel sorter for outpatient sleep study Rest of the care per primary team REVIEW OF SYSTEMS: 12 point ROS reviewed with patient. Pertinent positives mentioned above. Other mitchell negative. PHYSICAL EXAM: GENERAL: alert, weak, awake oriented x 3 HEENT: EOMI, Sclera non icteric, moist mucosa NECK: Supple, no JVD, trachea midline LUNGS: Clear breath sounds bilaterally. No wheezes HEART: Regular rate and rhythm. Normal S1 and S2, without murmurs ABD: Abdomen soft, nontender. Bowel sounds present EXT: No clubbing cyanosis or edema NEURO: Alert and oriented to person, follows commands Vital Signs (last 8hr) Date Time Temp Pulse Resp B/P (MAP) Pulse Ox O2 Delivery O2 Flow Rate FiO2 06/27/24 12:00 98.2 66 18 130/60 97 Room Air 21 06/27/24 08:45 97 Room Air* 0 21 06/27/24 08:00 99.1 64 17 103/47 97 Room Air 21 LABS: Hematology Labs: Test 06/27/24 03:29 Range/Units White Blood Count 3.8 L 4.8-10.8 K/uL Red Blood Count 3.08 L 4.00-5.50 MIL/uL Hemoglobin 10.1 L 12.0-16.0 g/dL Hematocrit 30.5 L 36-48 % Mean Corpuscular Volume 99.0 79-99 fL Mean Corpuscular Hemoglobin 32.8 27.0-33.0 pg Mean Corpuscular Hemoglobin Concent 33.1 32.0-36.0 g/dL Red Cell Distribution Width 15.9 H 11.0-15.5 % Platelet Count 80 L 130-400 K/uL Mean Platelet Volume 10.1 7.5-10.5 fL Immature Granulocyte % (Auto) 0.3 0-1 % Neutrophils (%) (Auto) 46.8 40.0-77.0 % Lymphocytes (%) (Auto) 24.6 21.0-51.0 % Monocytes (%) (Auto) 23.0 H 3.0-13.0 % Eosinophils (%) (Auto) 4.8 0.0-8.0 % Basophils (%) (Auto) 0.5 0.0-5.0 % Neutrophils # (Auto) 1.8 1.8-7.7 K/uL Lymphocytes # (Auto) 0.9 L 1.0-4.8 K/uL Monocytes # (Auto) 0.9 0.1-1.0 K/uL Eosinophils # (Auto) 0.18 0.00-0.70 K/uL Basophils # (Auto) 0.02 0.00-0.20 K/uL Absolute Immature Granulocyte (auto 0.01 0-1 K/uL Nucleated Red Blood Cells 0.0 0.0-0.19 % Chemistry Labs: Test 06/27/24 15:03 06/27/24 03:29 Range/Units Whole Blood Glucose 160 H 70-110 MG/DL Sodium Level 146 H 136-145 mmol/L Potassium Level 3.7 3.5-5.1 mmol/L Chloride Level 113 H 101-111 mmol/L Carbon Dioxide Level 25 21-32 mmol/L Blood Urea Nitrogen 14 7-18 mg/dL Creatinine 0.9 0.5-1.0 mg/dL Glomerular Filtration Rate Calc 74 >90 mL/min Random Glucose 103 70-105 mg/dL Total Calcium 7.7 L 8.5-10.1 mg/dL Magnesium Level 1.80 1.80-2.40 mg/dL Total Bilirubin 1.5 H 0.2-1.0 mg/dL Aspartate Amino Transf (AST/SGOT) 70 H 10-37 U/L Alanine Aminotransferase (ALT/SGPT) 30 12-78 U/L Alkaline Phosphatase 161 H 50-136 U/L Total Protein 5.4 L 6.0-8.3 g/dL Albumin 1.8 L 3.5-5.0 g/dL Coagulation Labs: Test 06/27/24 03:29 Range/Units Prothrombin Time 16.6 H 9.6-11.6 SEC Prothromb Time International Ratio 1.59 H 0.85-1.15 Activated Partial Thromboplast Time 37.5 H 26.3-35.5 SEC DIAGNOSTICS / RADIOLOGY RESULTS: na PLAN NEURO: Minimize central acting medications as possible. Maintain fall precautions, adequate lighting during the day PULMONARY: Supplemental 02 as needed. Maintain aspiration precautions at all times CARDIOVASCULAR: Follow hemodynamics. Vital signs per facility protocol GI & NUTRITION: Continue with nutritional support. Continue stool softeners and laxatives as needed. KIDNEYS & ELECTROLYTES: Strict monitoring of intake, output and overall fluid balance. Avoid nephrotoxic medications to the extent possible. Medications to be dosed according to renal function. Monitor electrolytes and replace as needed ENDOCRINE: Maintain blood glucose between 100-180 at all times. Hypoglycemia protocol in place INFECTIOUS DISEASE: Trend temperature, WBC and procalcitonin level Follow cultures, deescalate antibiotics as soon as possible. Panculture if new onset fever ONCOLOGY/HEMATOLOGY/COAGULATION: Monitor for s/s of bleeding Monitor hemoglobin, coagulation studies as needed SKIN: Pressure ulcer prevention per facility protocol Specialty mattress ORTHO/REHAB: Continue PT/OT Prophylaxis: Continue GI and DVT prophylaxis Code Status: Full Resuscitation Disposition: Per primary team Other: Case discussed with supervising physician plan of care agreed upon MARIANNA ALONSO Jun 27, 2024 15:24
[2024-06-27 15:36] LABS: BF LYMPHOCYTE 87 %; BF MACROPHAGE 2; BF MESOTHELIAL 4 %; BF MONOCYTE 6 %; BF TOTAL CELLS COUNTED 100
[2024-06-27 15:37] LABS: APPEARANCE BODY FLUID CLOUDY (CLEAR); COLOR,BODY FLUID YELLOW (LT YELLOW); SPECIMENTYPE,BODY FLUID PLEURAL
[2024-06-27 15:38] LABS: TOTAL VOLUME,BODY FLUID 50 mL
[2024-06-27 15:41] LABS: PH PLEURAL FLUID 7
--- NOTE | 2024-06-27 20:00 | NUR ---
MEDS SHIFT ASSESSMENT DONE, PLEASE REFER TO CHART. DUE MEDS ADMINISTERED, TOLERATED WELL. KEPT RESTED AND COMFORTABLE IN BED WITH HOB ELEVATED. RE-ITERATED FLUID RESTRICTION, PT VERBALIZES UNDERSTANDING. CALL LIGHT WITHIN REACH.
--- NOTE | 2024-06-27 20:54 | PN ---
endocrinology progress note Date of Service: Jun 27, 2024 subjective: levothyroxine dose has been increased from 137 mcg to 150 mcg daily. Labs on presentation showed PT INR of 1.46, PTT of 36.8. CMP remarkable for sodium of 141, potassium 4.5, creatinine 0.9, blood glucose of 115, AST of 89, ALT of 33, alkaline phosphatase of 203, ammonia of 71, albumin of 1.9. she has hypothyroidism for many years and home regimen levothyroxine 137 mcg daily. TSH 21.6 and t 4 free 1.11 REVIEW OF SYSTEMS CONSTITUTIONAL: Denies fevers, chills, or night sweats. No unintentional weight loss reported. NEUROLOGICAL: Denies headache, amaurosis fugax, motor weakness, sensory deficit, vertigo/spinning sensation, gait abnormalities, or tremors. ENT: No hearing loss, otalgia, otorrhea, rhinitis, rhinorrhea, hoarseness, or sore throat. CARDIOVASCULAR: Denies any exertional angina, dyspnea on exertion, orthopnea, paroxysmal nocturnal dyspnea, palpitations, life-threatening arrhythmias, claudication. PULMONARY: Episodes of streaky hemoptysis, shortness of breath at night, episodes of apnea at night SLEEP: Denies morning headaches, daytime somnolence or napping. Denies difficulty falling asleep, staying asleep, waking from sleep. Denies knowledge of snoring. GASTROINTESTINAL: Abdominal distention, weight gain, nausea GENITOURINARY: Denies frequency, urgency, nocturia, hematuria or incontinence (Storage/Irritative symptoms.) Low urinary stream, straining to void, urinary intermittency or hesitancy, splitting of the voiding stream, terminal dribbling. ENDOCRINOLOGIC: Denies polyuria, polydipsia, polyphagia or heat/cold intolerances. HEMATOLOGIC: Denies thrombophilia/previous clots, or coagulopathy/bleeding disorders. ONCOLOGIC: Denies personal history of malignancy. DERMATOLOGIC: Denies rashes or pruritus. PSYCHIATRIC: Denies any suicidal or homicidal ideation. Denies hallucinations. PAST MEDICAL HISTORY: Liver cirrhosis secondary to nonalcoholic fatty liver disease, hypothyroidism, hypertension, hyperlipidemia, type 2 diabetes mellitus, history of ascites requiring paracentesis x2 in May, PAST SURGICAL HISTORY: Previous therapeutic paracentesis x2 in May, PAST SOCIAL HISTORY: Patient is a previous smoker, currently denies active alcohol consumption or smoking FAMILY HISTORY: Denies pertinent family history Allergies: Patient reports having allergic reaction to morphine Home medications: No home medications available at bedside to be reconciled, family will be bringing home medication list to be reconciled and updated. Coded Allergies: No Known Allergies (Unverified Allergy, Unknown, 04/24/24) morphine (Unverified Allergy, Unknown, 05/25/24) DIAGNOSTICS / RADIOLOGY: SERVICE 9 REASON: sob ORDERING PHYSICIAN: REESE FAY MD PROCEDURE: CXR1VW - CHEST 1VW CHEST 1VW HISTORY: Shortness of breath COMPARISON: June 10, 2024 FINDINGS: A frontal projection of the chest was obtained. There are bilateral pulmonary infiltrates suggestive of pulmonary vascular congestion with possible superimposed pneumonitis. The heart is borderline enlarged. Degenerative changes are seen. No evidence of aortic calcification is seen. IMPRESSION: 1. Bilateral pulmonary infiltrates are seen suggestive of pulmonary vascular congestion with possible superimposed pneumonitis. DICTATED BY: GIDEON KOEHLER MD DATE: 06/25/24931 ELECTRONICALLY SIGNED BY: GIDEON KOEHLER MD DATE: 06/25/24 09 ASSESSMENT: uncontrolled primary hypothyroidism she has hypothyroidism for many years and home regimen levothyroxine 137 mcg daily. tsh is elevated, so recommend to increase levothyroxine dose. 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, POA Severe generalized anasarca due to underlying cirrhosis, POA Suspected IZZY, POA Streaky hemoptysis with forceful coughing x4 months, POA Hypertension, POA Hyperlipidemia, POA Thrombocytopenia and coagulopathy secondary to underlying cirrhosis, POA Macrocytic anemia, POA Underlying history of type 2 diabetes mellitus, POA Elevated ammonia, POA PLAN: continue levothyroxine 150 mcg daily educated on hypothyroidism repeat thyroid labs in 6 weeks Vitals/Labs Vital Signs Date Time Temp Pulse Resp B/P (MAP) Pulse Ox O2 Delivery O2 Flow Rate FiO2 06/27/24 20:00 98.2 67 18 126/51 96 Room Air 06/27/24 16:00 21 06/27/24 08:45 0 Laboratory Tests 06/27/24 03:29 Medications Current Medications Furosemide 80 mg ONCE ONCE IVP Last administered on 06/25/24at 08:42; Start 06/25/24 at 09:00; Stop 06/25/24 at 09:01; Status DC Lactulose 20 gm ONCE ONCE PO Last administered on 06/25/24at 13:21; Start 06/25/24 at 09:30; Stop 06/25/24 at 09:31; Status DC Pantoprazole Sodium 40 mg Q24H IVP Last administered on 06/25/24at 13:32; Start 06/25/24 at 10:30; Stop 06/25/24 at 20:50; Status DC Rifaximin 550 mg Q12H PO Last administered on 06/27/24at 19:58; Start 06/25/24 at 10:30; Stop 07/25/24 at 10:29 Ceftriaxone Sodium 1 gm Q12H IVPB Last administered on 06/26/24at 09:49; Start 06/25/24 at 10:30; Stop 06/26/24 at 17:26; Status DC Doxycycline Hyclate 100 mg Q12H PO Last administered on 06/26/24at 09:48; Start 06/25/24 at 10:30; Stop 06/26/24 at 17:26; Status DC Acetaminophen 500 mg Q6H PRN PO Last administered on 06/27/24at 10:31; Start 06/25/24 at 10:30; Stop 07/25/24 at 10:29 Ondansetron HCl 4 mg Q6H PRN IVP; Start 06/25/24 at 10:30; Stop 07/25/24 at 10:29 Albuterol 1 udvial Q6H PRN IH; Start 06/25/24 at 10:30; Stop 07/25/24 at 10:29 Lactulose 20 gm TID PO Last administered on 06/27/24at 19:58; Start 06/25/24 at 14:00; Stop 07/25/24 at 13:59 Potassium Chloride 100 ml @ 100 mls/hr AD PRN IV; Start 06/25/24 at 10:30; Stop 07/25/24 at 10:29 Potassium Chloride 20 meq AD PRN PO; Start 06/25/24 at 10:30; Stop 07/25/24 at 10:29 Potassium Chloride 20 meq AD PRN PO; Start 06/25/24 at 10:30; Stop 07/25/24 at 10:29 Magnesium Sulfate 50 ml @ 0 mls/hr PROTOCOL IV Last administered on 06/27/24at 05:36; Start 06/25/24 at 10:30; Stop 07/25/24 at 10:29 Albumin Human 200 ml @ As Directed STK-MED ONCE IV; Start 06/25/24 at 10:59; Stop 06/25/24 at 11:00; Status DC Insulin Human Regular INSULIN SLIDING SCAL... ACHS SQ Last administered on 06/27/24at 12:09; Start 06/25/24 at 16:30; Stop 07/25/24 at 16:29 Levothyroxine Sodium 150 mcg DAILY@0630 PO Last administered on 06/27/24at 05:36; Start 06/26/24 at 06:30; Stop 07/26/24 at 06:29 Furosemide 40 mg DAILY PO Last administered on 06/27/24at 11:28; Start 06/26/24 at 09:00; Stop 07/26/24 at 08:59 Propranolol HCl 10 mg BID PO Last administered on 06/27/24at 19:58; Start 06/25/24 at 21:00; Stop 07/25/24 at 20:59 Pantoprazole Sodium 40 mg DAILY PO Last administered on 06/27/24at 09:42; Start 06/26/24 at 09:00; Stop 07/26/24 at 08:59 Spironolactone 100 mg DAILY PO Last administered on 06/27/24at 11:28; Start 06/26/24 at 09:00; Stop 07/26/24 at 08:[address] LALA THORACANGELIKA... ONCE ONCE INJ; Start 06/27/24 at 10:30; Stop 06/27/24 at 10:31; Status DC JEANMARIE ABAD MD Jun 27, 2024 20:54
--- NOTE | 2024-06-27 23:20 | NUR ---
CARO PT CALLS AND CLAIMS OF HAVING ANXIETY AND HEADACHE. MEDICATED WITH TYLENOL PO FOR HEADACHE. ASSURED PT TO CALL MUCKING MACHINE OPERATOR FOR ANXIETY MED. PAGED SHOP MECHANIC HELPER MUCKING MACHINE OPERATOR VIA ANSWERING SERVICE. AWAITING CALL BACK.
--- NOTE | 2024-06-27 23:31 | NUR ---
CAFE SITE ATTENDANT DELPHINE SILVA CALLED BACK AND REFERRED PT'S COMPLAINTS OF ANXIETY. NEW MED ORDER RECEIVED FOR ATIVAN PO. PLEASE REFER TO CPOE. WILL MEDICATE PT.
[2024-06-27] MEDS: LORazepam 0.5 MG TABLET PO ONE (23:38)
[2024-06-28] VITALS (8 sets, daily range): BP systolic 112–140; BP diastolic 53–66; PULSE 64–68; RESP 16–19; TEMP 98.1–98.4; O2SAT 95–99
[2024-06-28 04:56] LABS: BASOPHILS # (AUTO) 0.02 K/uL (0.00-0.20); BASOPHILS % (AUTO) 0.5 % (0.0-5.0); EOSINOPHILS # (AUTO) 0.16 K/uL (0.00-0.70); HEMATOCRIT 30.5 % (36-48); IMMATURE GRANULOCYTE ABSOLUTE 0.02 K/uL (0-1); LYMPHOCYTES # (AUTO) 0.9 K/uL (1.0-4.8); LYMPHOCYTES % (AUTO) 21.7 % (21.0-51.0); MEAN CORPUSCULAR HEMOGLOBIN 32.7 pg (27.0-33.0); MEAN CORPUSCULAR HGB CONC 33.1 g/dL (32.0-36.0); MEAN CORPUSCULAR VOLUME 98.7 fL (79-99); MONOCYTES # (AUTO) 0.8 K/uL (0.1-1.0); MONOCYTES % (AUTO) 20.2 % (3.0-13.0); NEUTROPHILS # (AUTO) 2.1 K/uL (1.8-7.7); NEUTROPHILS % (AUTO) 53.1 % (40.0-77.0); PLATELET COUNT (AUTO) 90 K/uL (130-400); RED BLOOD CELL COUNT(AUTO) 3.09 MIL/uL (4.00-5.50); RED CELL DISTRIBUTION WIDTH 15.9 % (11.0-15.5)
[2024-06-28 05:44] LABS: ALBUMIN 1.8 g/dL (3.5-5.0); BILIRUBIN,TOTAL 1.4 mg/dL (0.2-1.0); CREATININE 0.9 mg/dL (0.5-1.0); MAGNESIUM 1.9 mg/dL (1.80-2.40); POTASSIUM 3.9 mmol/L (3.5-5.1); TOTAL PROTEIN, SERUM 5.5 g/dL (6.0-8.3)
--- NOTE | 2024-06-28 06:05 | NUR ---
MG PT STILL ASLEEP WITH RESPIRATIONS EVEN NAD UNLABORED. LAB RESULTS IN AND MG LEVEL=1.9, STARTED IV INFUSION. KEPT COMFORTABLE. FOR MORE CARE.
--- NOTE | 2024-06-28 13:15 | PN ---
[facility] PROGRESS NOTE Date of Service: Jun 28, 2024 Time of Service: 13:13 SUBJECTIVE: 06/25 - Patient is a 58 year old female, Lao speaking, with a past medical history liver cirrhosis secondary to fatty liver disease, hypertension, hyperlipidemia, hypothyroidism, and obesity with a history of frequent large volume paracentesis. Patient last admission was 06/10 for large volume para centesis with drainage of 4.3L of ascitic acid. Upon admission patient had elevated TSH, Dr. Thomas, endocrinology was consulted. Per Endocrinology, levothyroxine will be increased to 150mcg daily and will have her labs repeated in 6 weeks outpatient. Possible paracentesis pending. Will continue to follow recommendations per Pulmonology. Patient remains on Lasix 40 mg QD, spirolactone 100 mg QD, lactulose 20 gm TID, doxycycline and Rocephin. Remarkable labs: white count 4.3, H&H stable, platelets down from 111 to 91K. Chemistries are unremarkable. Pending ascites culture results from 1L removal upon admission. 06/27/24 patient is seen and examined with Dr. Tolbert. Reviewed chart patient is fully awake alert oriented x3. status post paracentesis 06/25/24 patient is being followed by column precaster's status post right-sided thoracentesis at bedside 2000 mL removed. Patient on room air saturations above 97%. 06/28/24 patient was seen and examined. Ambulating and feeling better. Follow up on thoracentesis results. With continued improvement likely discharge in a.m. REVIEW OF SYSTEMS CONSTITUTIONAL: Denies fevers, chills, or night sweats. No unintentional weight loss reported. NEUROLOGICAL: Denies headache, amaurosis fugax, motor weakness, sensory deficit, vertigo/spinning sensation, gait abnormalities, or tremors. ENT: No hearing loss, otalgia, otorrhea, rhinitis, rhinorrhea, hoarseness, or sore throat. CARDIOVASCULAR: Denies any exertional angina, dyspnea on exertion, orthopnea, paroxysmal nocturnal dyspnea, palpitations, life-threatening arrhythmias, claudication. PULMONARY: Episodes of streaky hemoptysis, shortness of breath at night, episodes of apnea at night SLEEP: Denies morning headaches, daytime somnolence or napping. Denies di fficulty falling asleep, staying asleep, waking from sleep. Denies knowledge of snoring. GASTROINTESTINAL: Abdominal distention, weight gain, nausea GENITOURINARY: Denies frequency, urgency, nocturia, hematuria or incontinence (Storage/Irritative symptoms.) Low urinary stream, straining to void, urinary intermittency or hesitancy, splitting of the voiding stream, terminal dribbling. ENDOCRINOLOGIC: Denies polyuria, polydipsia, polyphagia or heat/cold intolerances. HEMATOLOGIC: Denies thrombophilia/previous clots, or coagulopathy/bleeding disorders. ONCOLOGIC: Denies personal history of malignancy. DERMATOLOGIC: Denies rashes or pruritus. PSYCHIATRIC: Denies any suicidal or homicidal ideation. Denies hallucinations. PHYSICAL EXAM GENERAL APPEARANCE: The patient is awake, alert, and oriented, in no acute cardiopulmonary distress. NEUROLOGICAL: Cranial nerves II-XII grossly intact. Motor is 5/5 in bilateral upper and lower extremities proximal to distal. No sensory deficits. HEENT: Face is symmetric. Pupils are equal and reactive. Extraocular movements are intact. NECK: Supple. No JVD. No thyromegaly. No submental, submandibular, pre- /postauricular, occipital or supraclavicular lymphadenopathy. CHEST: Normal chest expansion. No Telemetry. LUNGS: Decreased breath sound of the right lung base with crackles CARDIOVASCULAR: Regular. S1 and S2 normal. No appreciable rubs, murmurs or gallops. ABDOMEN: Abdomen is distended with fluid wave noted, generalized anasarca noted : Deferred. No Levine. EXTREMITIES: 2+ pitting edema noted of bilateral lower extremities SKIN: No skin breakdown. Vital Signs (last 8hr) Date Time Temp Pulse Resp B/P (MAP) Pulse Ox O2 Delivery O2 Flow Rate FiO2 06/28/24 11:13 98.4 64 19 140/66 94 Room Air 06/28/24 08:20 95 Room Air* 0 21 06/28/24 07:48 98.2 64 19 115/61 95 Room Air LABS: Laboratory: Test 06/28/24 10:09 06/28/24 04:48 06/27/24 11:05 06/27/24 03:29 Range/Units Whole Blood Glucose 119 H 70-110 MG/DL White Blood Count 4.0 L 4.8-10.8 K/uL Red Blood Count 3.09 L 4.00-5.50 MIL/uL Hemoglobin 10.1 L 12.0-16.0 g/dL Hematocrit 30.5 L 36-48 % Mean Corpuscular Volume 98.7 79-99 fL Mean Corpuscular Hemoglobin 32.7 27.0-33.0 pg Mean Corpuscular Hemoglobin Concent 33.1 32.0-36.0 g/dL Red Cell Distribution Width 15.9 H 11.0-15.5 % Platelet Count 90 L 130-400 K/uL Mean Platelet Volume 10.0 7.5-10.5 fL Immature Granulocyte % (Auto) 0.5 0-1 % Neutrophils (%) (Auto) 53.1 40.0-77.0 % Lymphocytes (%) (Auto) 21.7 21.0-51.0 % Monocytes (%) (Auto) 20.2 H 3.0-13.0 % Eosinophils (%) (Auto) 4.0 0.0-8.0 % Basophils (%) (Auto) 0.5 0.0-5.0 % Neutrophils # (Auto) 2.1 1.8-7.7 K/uL Lymphocytes # (Auto) 0.9 L 1.0-4.8 K/uL Monocytes # (Auto) 0.8 0.1-1.0 K/uL Eosinophils # (Auto) 0.16 0.00-0.70 K/uL Basophils # (Auto) 0.02 0.00-0.20 K/uL Absolute Immature Granulocyte (auto 0.02 0-1 K/uL Nucleated Red Blood Cells 0.0 0.0-0.19 % Sodium Level 146 H 136-145 mmol/L Potassium Level 3.9 3.5-5.1 mmol/L Chloride Level 114 H 101-111 mmol/L Carbon Dioxide Level 24 21-32 mmol/L Blood Urea Nitrogen 16 7-18 mg/dL Creatinine 0.9 0.5-1.0 mg/dL Glomerular Filtration Rate Calc 74 >90 mL/min Random Glucose 112 H 70-105 mg/dL Total Calcium 7.8 L 8.5-10.1 mg/dL Magnesium Level 1.90 1.80-2.40 mg/dL Total Bilirubin 1.4 H 0.2-1.0 mg/dL Aspartate Amino Transf (AST/SGOT) 70 H 10-37 U/L Alanine Aminotransferase (ALT/SGPT) 30 12-78 U/L Alkaline Phosphatase 175 H 50-136 U/L Ammonia 21 11-32 umol/L Total Protein 5.5 L 6.0-8.3 g/dL Albumin 1.8 L 3.5-5.0 g/dL Body Fluid Source PLEURAL Body Fluid Volume 50 mL Body Fluid Color YELLOW LT YELLOW Body Fluid Supernatant Appearance CLOUDY H CLEAR Body Fluid WBC 353 /cu. mm. Body Fluid RBC 1246 /cu. mm. Body Fluid Neutrophils 1.0 % Body Fluid Lymphocytes 87 % Body Fluid Monocytes % 6 % Body Fluid Macrophages (%) 2 Body Fluid Mesothelial Cells (%) 4 % Body Fluid Triglycerides 188 mg/dL Pleural Fluid pH 7 Pleural Fluid Total Protein < 2.0 mg/dL Pleural Fluid LDH 76 U/L Pleural Fluid Glucose 133 Prothrombin Time 16.6 H 9.6-11.6 SEC Prothromb Time International Ratio 1.59 H 0.85-1.15 Activated Partial Thromboplast Time 37.5 H 26.3-35.5 SEC Current Medications Medications (Trade) Dose Ordered Sig/Carmita Route PRN Reason Start Time Stop Time Status Last Admin Dose Admin Acetaminophen (TYLenol 500MG TAB) 500 mg Q6H PRN PO MILD PAIN (1-3) 06/25/24 10:30 07/25/24 10:29 06/27/24 23:20 500 MG Albuterol (DUOneb) 1 udvial Q6H PRN IH SHORTNESS OF BREATH 06/25/24 10:30 07/25/24 10:29 Ceftriaxone Sodium (ROCEphine 1G INJ) 1 gm Q12H IVPB 06/25/24 10:30 06/26/24 17:26 DC 06/26/24 09:49 1 GM Doxycycline Hyclate (Doxycycline Hyclate) 100 mg Q12H PO 06/25/24 10:30 06/26/24 17:26 DC 06/26/24 09:48 100 MG Furosemide (LASix 40MG TAB) 40 mg DAILY PO 06/26/24 09:00 07/26/24 08:59 06/28/24 08:25 40 MG Insulin Human Regular (humuLIN R 100 UNIT/ML 3ML) INSULIN SLIDING SCAL... ACHS SQ 06/25/24 16:30 07/25/24 16:29 06/27/24 12:09 2 UNIT Lactulose (Constulose 20gm/ 30ml Udcup) 20 gm BID PO 06/28/24 21:00 07/25/24 13:59 Lactulose (Constulose 20gm/ 30ml Udcup) 20 gm TID PO 06/25/24 14:00 06/28/24 12:25 DC 06/28/24 08:25 20 GM Levothyroxine Sodium (SYNTHroid 150MCG TAB) 150 mcg DAILY@0630 PO 06/26/24 06:30 07/26/24 06:29 06/28/24 05:15 150 MCG Magnesium Sulfate 50 ml @ 0 mls/hr PROTOCOL IV 06/25/24 10:30 07/25/24 10:29 06/28/24 06:05 25 MLS/HR Ondansetron HCl (zoFRAN 4MG INJ) 4 mg Q6H PRN IVP NAUSEA/VOMITING 06/25/24 10:30 07/25/24 10:29 Pantoprazole Sodium (PROTonix 40MG INJ) 40 mg Q24H IVP 06/25/24 10:30 06/25/24 20:50 DC 06/25/24 13:32 40 MG Pantoprazole Sodium (PROTonix 40MG TAB) 40 mg DAILY PO 06/26/24 09:00 07/26/24 08:59 06/28/24 08:25 40 MG Potassium Chloride 100 ml @ 100 mls/hr AD PRN IV POTASSIUM PROTOCOL 06/25/24 10:30 07/25/24 10:29 Potassium Chloride (K-Dur/Klor-Con 20meq) 20 meq AD PRN PO POTASSIUM PROTOCOL 06/25/24 10:30 07/25/24 10:29 Potassium Chloride (KCl 10% Elixir 20meq/15ml) 20 meq AD PRN PO POTASSIUM PROTOCOL 06/25/24 10:30 07/25/24 10:29 Propranolol HCl (Inderal) 10 mg BID PO 06/25/24 21:00 07/25/24 20:59 06/28/24 08:25 10 MG Rifaximin (Xifaxan) 550 mg Q12H PO 06/25/24 10:30 07/25/24 10:29 06/28/24 11:34 550 MG Spironolactone (Aldactone 25mg) 100 mg DAILY PO 06/26/24 09:00 07/26/24 08:59 06/28/24 08:25 100 MG DIAGNOSTICS / RADIOLOGY: [ ] ASSESSMENT: Decompensated liver cirrhosis with significant generalized anasarca and tense as cites, POA s/p paracentitis 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 Rule out developing community-acquired pneumonia of the right lung, POA Severe generalized anasarca due to underlying cirrhosis, POA Suspected IZZY, POA Streaky hemoptysis with forceful coughing x4 months, POA Hypothyroidism poorly controlled, POA Hypertension, POA Hyperlipidemia, POA Thrombocytopenia and coagulopathy secondary to underlying cirrhosis, POA Macrocytic anemia, POA Underlying history of type 2 diabetes mellitus, POA Elevated ammonia, POA PLAN: consult: Twine Winder's following s/p paracentesis 06/26/2024 status post thoracentesis 2000 removal 06/27/2024 - fluid restriction: 1.5 liter restrict from Sodium intake - cont with diuretics 40 mg p.o. daily, spironolactone 100 p.o. daily We continue with liver cirrhosis regimen ammonia level ongoing surveillance. Continue lactulose twenty grand t.i.d.. Continue rifaximin sputum culture in process, continue IV Rocephin and doxycycline Auto Hauler following TSH elevated on admission started the patient on 150 mcg every a.m. levothyroxine Continue sliding scale insulin a.c. and HS Replace electrolytes to keep potassium above 4.0 magnesium above 2.0. All questions addressed Plan of care was discussed with patient at bedside, This document was generated in part using voice recognition software, occasional wrong word or sound alike substitutions may have occurred due to the inherent limitations of voice recognition software. Read the chart carefully and recognize using context, where the substitutions have occurred. Although every effort was made to edit the content, stitcher operator and typing errors may occur OCTAVIANO GÓMEZ MD Jun 28, 2024 13:15
--- NOTE | 2024-06-28 17:35 | NUR ---
COMPLAINTS PATIENT C/O SHORTNESS OF BREATH. SITTING IN CHAIR, STATES UNABLE TO BREATH PROPERLY AND MIGHT BE ANXIETY DUE TO ABDOMINAL PRESSURE FROM ASCITES. O2 @ 97% ROOM AIR. ADVISED PATIENT TO INHALE THROUGH NOSE AND EXHALE THROUGH MOUTH. PATIENT VOICED UNDERSTANDING. PATIENT HAS NOTHING FOR ANXIETY ON FILE. PAGED HOSPITALIST GROUP TO REPORT FINDING AND REQUESTING RECOMMENDATIONS. PENDING CALLBACK.
--- NOTE | 2024-06-28 18:10 | NUR ---
XANAX [address] BRUMFIELD FOR XANAX 0.25MG PO X1 DOSE. ORDERS PLACED. PENDING TO CARRY OUT. WENT TO ADMINISTER MEDICATION ORDERD BY DR. BRUMFIELD OF XANAX 0.25MG PO. PATIENT REFUSED AT THIS TIME. STATED WOULD LIKE TO WAIT UNTIL LATER ON THIS PM TO TAKE MEDICATION. REPORTS FEELING MUCH BETTER AT THIS TIME. NONE ADMINISTERED. WILL CONTINUE TO MONITOR.
--- NOTE | 2024-06-28 19:52 | PN ---
endocrinology progress note Date of Service: Jun 28, 2024 subjective: levothyroxine dose has been increased from 137 mcg to 150 mcg daily. Labs on presentation showed PT INR of 1.46, PTT of 36.8. CMP remarkable for sodium of 141, potassium 4.5, creatinine 0.9, blood glucose of 115, AST of 89, ALT of 33, alkaline phosphatase of 203, ammonia of 71, albumin of 1.9. she has hypothyroidism for many years and home regimen levothyroxine 137 mcg daily. TSH 21.6 and t 4 free 1.11 REVIEW OF SYSTEMS CONSTITUTIONAL: Denies fevers, chills, or night sweats. No unintentional weight loss reported. NEUROLOGICAL: Denies headache, amaurosis fugax, motor weakness, sensory deficit, vertigo/spinning sensation, gait abnormalities, or tremors. ENT: No hearing loss, otalgia, otorrhea, rhinitis, rhinorrhea, hoarseness, or sore throat. CARDIOVASCULAR: Denies any exertional angina, dyspnea on exertion, orthopnea, paroxysmal nocturnal dyspnea, palpitations, life-threatening arrhythmias, claudication. PULMONARY: Episodes of streaky hemoptysis, shortness of breath at night, episodes of apnea at night SLEEP: Denies morning headaches, daytime somnolence or napping. Denies difficulty falling asleep, staying asleep, waking from sleep. Denies knowledge of snoring. GASTROINTESTINAL: Abdominal distention, weight gain, nausea GENITOURINARY: Denies frequency, urgency, nocturia, hematuria or incontinence (Storage/Irritative symptoms.) Low urinary stream, straining to void, urinary intermittency or hesitancy, splitting of the voiding stream, terminal dribbling. ENDOCRINOLOGIC: Denies polyuria, polydipsia, polyphagia or heat/cold intolerances. HEMATOLOGIC: Denies thrombophilia/previous clots, or coagulopathy/bleeding disorders. ONCOLOGIC: Denies personal history of malignancy. DERMATOLOGIC: Denies rashes or pruritus. PSYCHIATRIC: Denies any suicidal or homicidal ideation. Denies hallucinations. PAST MEDICAL HISTORY: Liver cirrhosis secondary to nonalcoholic fatty liver disease, hypothyroidism, hypertension, hyperlipidemia, type 2 diabetes mellitus, history of ascites requiring paracentesis x2 in May, PAST SURGICAL HISTORY: Previous therapeutic paracentesis x2 in May, PAST SOCIAL HISTORY: Patient is a previous smoker, currently denies active alcohol consumption or smoking FAMILY HISTORY: Denies pertinent family history Allergies: Patient reports having allergic reaction to morphine Home medications: No home medications available at bedside to be reconciled, family will be bringing home medication list to be reconciled and updated. Coded Allergies: No Known Allergies (Unverified Allergy, Unknown, 04/24/24) morphine (Unverified Allergy, Unknown, 05/25/24) DIAGNOSTICS / RADIOLOGY: SERVICE 9 REASON: sob ORDERING PHYSICIAN: REESE FAY MD PROCEDURE: CXR1VW - CHEST 1VW CHEST 1VW HISTORY: Shortness of breath COMPARISON: June 10, 2024 FINDINGS: A frontal projection of the chest was obtained. There are bilateral pulmonary infiltrates suggestive of pulmonary vascular congestion with possible superimposed pneumonitis. The heart is borderline enlarged. Degenerative changes are seen. No evidence of aortic calcification is seen. IMPRESSION: 1. Bilateral pulmonary infiltrates are seen suggestive of pulmonary vascular congestion with possible superimposed pneumonitis. DICTATED BY: GIDEON KOEHLER MD DATE: 06/25/24931 ELECTRONICALLY SIGNED BY: GIDEON KOEHLER MD DATE: 06/25/24934 ASSESSMENT: uncontrolled primary hypothyroidism she has hypothyroidism for many years and home regimen levothyroxine 137 mcg daily. tsh is elevated, so recommend to increase levothyroxine dose. 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, POA Severe generalized anasarca due to underlying cirrhosis, POA Suspected IZZY, POA Streaky hemoptysis with forceful coughing x4 months, POA Hypertension, POA Hyperlipidemia, POA Thrombocytopenia and coagulopathy secondary to underlying cirrhosis, POA Macrocytic anemia, POA Underlying history of type 2 diabetes mellitus, POA Elevated ammonia, POA PLAN: continue levothyroxine 150 mcg daily educated on hypothyroidism repeat thyroid labs in 6 weeks Vitals/Labs Vital Signs Date Time Temp Pulse Resp B/P (MAP) Pulse Ox O2 Delivery O2 Flow Rate FiO2 06/28/24 16:00 98.1 66 17 112/55 94 Room Air 06/28/24 08:20 0 21 Laboratory Tests 06/28/24 04:48 Medications Current Medications Furosemide 80 mg ONCE ONCE IVP Last administered on 06/25/24at 08:42; Start 06/25/24 at 09:00; Stop 06/25/24 at 09:01; Status DC Lactulose 20 gm ONCE ONCE PO Last administered on 06/25/24at 13:21; Start 06/25/24 at 09:30; Stop 06/25/24 at 09:31; Status DC Pantoprazole Sodium 40 mg Q24H IVP Last administered on 06/25/24at 13:32; Start 06/25/24 at 10:30; Stop 06/25/24 at 20:50; Status DC Rifaximin 550 mg Q12H PO Last administered on 06/28/24at 11:34; Start 06/25/24 at 10:30; Stop 07/25/24 at 10:29 Ceftriaxone Sodium 1 gm Q12H IVPB Last administered on 06/26/24at 09:49; Start 06/25/24 at 10:30; Stop 06/26/24 at 17:26; Status DC Doxycycline Hyclate 100 mg Q12H PO Last administered on 06/26/24at 09:48; Start 06/25/24 at 10:30; Stop 06/26/24 at 17:26; Status DC Acetaminophen 500 mg Q6H PRN PO Last administered on 06/27/24at 23:20; Start 06/25/24 at 10:30; Stop 07/25/24 at 10:29 Ondansetron HCl 4 mg Q6H PRN IVP; Start 06/25/24 at 10:30; Stop 07/25/24 at 10:29 Albuterol 1 udvial Q6H PRN IH; Start 06/25/24 at 10:30; Stop 07/25/24 at 10:29 Lactulose 20 gm TID PO Last administered on 06/28/24at 08:25; Start 06/25/24 at 14:00; Stop 06/28/24 at 12:25; Status DC Potassium Chloride 100 ml @ 100 mls/hr AD PRN IV; Start 06/25/24 at 10:30; Stop 07/25/24 at 10:29 Potassium Chloride 20 meq AD PRN PO; Start 06/25/24 at 10:30; Stop 07/25/24 at 10:29 Potassium Chloride 20 meq AD PRN PO; Start 06/25/24 at 10:30; Stop 07/25/24 at 10:29 Magnesium Sulfate 50 ml @ 0 mls/hr PROTOCOL IV Last administered on 06/28/24at 06:05; Start 06/25/24 at 10:30; Stop 07/25/24 at 10:29 Albumin Human 200 ml @ As Directed STK-MED ONCE IV; Start 06/25/24 at 10:59; Stop 06/25/24 at 11:00; Status DC Insulin Human Regular INSULIN SLIDING SCAL... ACHS SQ Last administered on 06/27/24at 12:09; Start 06/25/24 at 16:30; Stop 07/25/24 at 16:29 Levothyroxine Sodium 150 mcg DAILY@0630 PO Last administered on 06/28/24at 05:15; Start 06/26/24 at 06:30; Stop 07/26/24 at 06:29 Furosemide 40 mg DAILY PO Last administered on 06/28/24at 08:25; Start 06/26/24 at 09:00; Stop 07/26/24 at 08:59 Propranolol HCl 10 mg BID PO Last administered on 06/28/24at 08:25; Start 06/25/24 at 21:00; Stop 07/25/24 at 20:59 Pantoprazole Sodium 40 mg DAILY PO Last administered on 06/28/24at 08:25; Start 06/26/24 at 09:00; Stop 07/26/24 at 08:59 Spironolactone 100 mg DAILY PO Last administered on 06/28/24at 08:25; Start 06/26/24 at 09:00; Stop 07/26/24 at 08:[address] SPIKE THOMPSON... ONCE ONCE INJ; Start 06/27/24 at 10:30; Stop 06/27/24 at 10:31; Status DC Lorazepam 0.5 mg ONCE ONCE PO Last administered on 06/27/24at 23:38; Start 06/27/24 at 23:30; Stop 06/27/24 at 23:33; Status DC Lactulose 20 gm BID PO; Start 06/28/24 at 21:00; Stop 07/25/24 at 13:59 Alprazolam 0.25 mg ONCE ONCE PO; Start 06/28/24 at 18:00; Stop 06/28/24 at 18:01; Status DC JEANMARIE ABAD MD Jun 28, 2024 19:52
[2024-06-28] MEDS: LACTULOSE 20 GM/30 ML UDCUP PO SCH (20:16)
[2024-06-28] MEDS: ALPRAZolam 0.25 MG TABLET PO ONE (20:16)
--- NOTE | 2024-06-28 20:20 | NUR ---
MEDS PT SEEN SITTING DOWN IN CHAIR, VERBALIZES SOB WITH MOVEMENT. ASSISTED PT BACK IN BED AND PLACED COMFORTABLY WITH HOB ELEVATED. DUE MEDS ADMINISTERED, TOLERATED WELL. KEPT ON O2 AT 2LPM VIA NC FOR COMFORT. O2 SATS=99 ON O2. PT'S ABDOMEN IS DISTENDED AND PT HAS DIFFICULTY MOVING. PLACED BACK SCD'S TO BLE. BED ALARM ACTIVATED. CALL LIGHT WITHIN REACH.
[2024-06-29] VITALS (16 sets, daily range): BP systolic 95–138; BP diastolic 37–83; PULSE 63–83; RESP 16–20; TEMP 98–98.5; O2SAT 94–96
--- NOTE | 2024-06-29 01:18 | NUR ---
ANXIETY PT CALLS AND CLAIMS OF HAVING A LOT OF ANXIETY. NOTED TO BE HAVING SOB WITH EXERTION. ASSISTED PT TO THE RESTROOM THEN BACK TO BED. KEPT O2 AT 2LPM VIA NC. POSITIONED COMFORTABLY IN BED WITH HOB ELEVATED. PAGED SHADOWGRAPH SCALE OPERATOR ABSTRACT MAKER VIA ANSWERING SERVICE. AWAITING CALL BACK.
--- NOTE | 2024-06-29 01:34 | NUR ---
SALES MERCHANDISER DELPHINE SILVA CALLED BACK AND REFERRED PT'S ANXIETY AND SOB WITH EXERTION WELL ABDOMINAL DISTENTION. NEW ORDERS GIVEN, PLEASE REFER TO CPOE. WILL MEDICATE PT.
--- NOTE | 2024-06-29 01:41 | NUR ---
ORDERS FAXED ORDERS TO COUPLING MACHINE OPERATOR ALLAN AND INFORMED OF ORDERS RECEIVED FOR US ABDOMINAL PARACENTESIS. AT 0252 NURSE MIGUEL WAS ASKED TO GET CONSENT FOR PARACENTESIS IN [place]. CONSENT WAS SIGNED BY PT AND WITNESSED BY ADITI RIVERA. FORM PLACED IN CHART. MEDICATED WITH ATIVAN PO FOR ANXIETY. KEPT COMFORTABLE IN BED. FAMILY AT BEDSIDE. FALL PRECAUTIONS RE-ITERATED. BED ALARM KEPT ACTIVATED.
[2024-06-29] MEDS: LORazepam 0.5 MG TABLET PO ONE (01:56)
[2024-06-29 04:21] LABS: INR 1.52 (0.85-1.15); PROTHROMBIN TIME 15.9 SEC (9.6-11.6)
--- NOTE | 2024-06-29 05:13 | NUR ---
MEDS PT ASLEEP BUT AWAKENS WHEN STAFF CALLS HER NAME. DUE MEDS ADMINISTERED, TOLERATED WELL. KEPT COMFORTABLE IN BED WITH HOB ELEVATED. FOR MORE CARE.
[2024-06-29] MEDS ORDERED: LEVO150 PO (07:59)
[2024-06-29 08:07] LABS: BASOPHILS # (AUTO) 0.03 K/uL (0.00-0.20); BASOPHILS % (AUTO) 0.7 % (0.0-5.0); EOSINOPHILS # (AUTO) 0.18 K/uL (0.00-0.70); EOSINOPHILS % (AUTO) 4.3 % (0.0-8.0); LYMPHOCYTES % (AUTO) 23.3 % (21.0-51.0); MEAN CORPUSCULAR HEMOGLOBIN 32.8 pg (27.0-33.0); MEAN CORPUSCULAR HGB CONC 32.8 g/dL (32.0-36.0); MONOCYTES # (AUTO) 0.7 K/uL (0.1-1.0); MONOCYTES % (AUTO) 17.6 % (3.0-13.0); NEUTROPHILS # (AUTO) 2.3 K/uL (1.8-7.7); NEUTROPHILS % (AUTO) 54.1 % (40.0-77.0); PLATELET COUNT (AUTO) 97 K/uL (130-400); RED CELL DISTRIBUTION WIDTH 15.9 % (11.0-15.5); WHITE BLOOD COUNT (AUTO) 4.2 K/uL (4.8-10.8)
--- NOTE | 2024-06-29 08:10 | DS ---
Discharge Summary Hospital Course Summary: 06/25 - Patient is a 58 year old female, [place]an speaking, with a past medical history liver cirrhosis secondary to fatty liver disease, hypertension, hyperlipidemia, hypothyroidism, and obesity with a history of frequent large volume paracentesis. Patient last admission was 06/10 for large volume paracentesis with drainage of 4.3L of ascitic acid. Upon admission patient had elevated TSH, Dr. Thomas, endocrinology was consulted. Per Endocrinology, levothyroxine was increased to 150mcg daily and will have her labs repeated in 6 weeks outpatient. Patient was also followed by merchandise deliverer patient underwent paracentesis1 L removed in thoracentesis2 L removed. Fluid analysis was sent out we will follow-up with merchandise deliverer's one-week patient will also need to follow-up with Dr. Hodges merchandise deliverer for outpatient sleep study. Patient will continue with Lasix Aldactone and propranolol. 6 min walk: passed: The patient is hemodynamically stable for discharge. Patient instructed to follow-up with appointments as scheduled verbalized understanding Procedure(s): REASON: diagnostic and large volume paracentesis, fluid studies have been ordered ORDERING PHYSICIAN: COLETTE TAPIA MD PROCEDURE: PARA ABD - US ABDOMINAL PARACENTESIS IR US ABDOMINAL PARACENTESIS IR HISTORY: Ascites COMPARISON: None TECHNIQUE: Informed consent was obtained. Risks and benefits were explained to the patient. A timeout was performed. Patient was prepped and draped in a sterile fashion. Local anesthetics was given as required. Under ultrasound guidance, ascites fluid was localized. Paracentesis was performed. FINDINGS: Less than 2 cc blood loss is noted. Patient tolerated procedure without complication. Patient left the department in good condition. IMPRESSION: 1. Uncomplicated ultrasound guidance paracentesis. REASON: cirrhosis, large volume asictes, assess portal blood flow ORDERING PHYSICIAN: COLETTE TAPIA MD PROCEDURE: ABDOMEN - US ABDOMINAL COMPLETE US ABDOMINAL COMPLETE HISTORY: Cirrhosis COMPARISON: None TECHNIQUE: Multiple transverse and longitudinal ultrasound images of the abdomen were obtained. FINDINGS: The study is limited due to patient's large body habitus and overlying bowel gas. Abdominal aorta is not well visualized. Flow is seen in the inferior vena cava. Pancreas is partially seen. Liver measured 13 cm per Liver is echogenic consistent with liver parenchymal disease. No gallstone is seen. Common duct is not well visualized. Orbital wall measures 3 mm. Both kidneys are seen. Right kidney measures 8.8 x 4.4 x 3.3 cm. Left kidney measures 10.3 x 4.3 x 5.7 cm. No hydronephrosis is seen of the both kidneys. Spleen is enlarged measuring 14 cm. The spleen is grossly unremarkable. IMPRESSION: 1. Limited study due to patient's body habitus and overlying bowel gas. Common duct is not well seen. No definite gallstone is seen. Minimal ascites is seen.. 2. No hydronephrosis is seen. REASON: assess for significant right sided pleural effusion, possible hepatic hydro ORDERING PHYSICIAN: COLETTE TAPIA MD PROCEDURE: CHEST SCAN - US CHEST WALL SOFT TISSUE US CHEST WALL SOFT TISSUE REASON: assess for significant right sided pleural effusion, possible hepatic hydro. COMPARISON: None TECHNIQUE: Ultrasound of right chest was obtained for pleural effusion. FINDINGS: Small right pleural effusion is seen. IMPRESSION: Small right pleural effusion. REASON: cirrhosis, RLL infiltrates, possible heaptic hydrothroax, streak hemoptysis ORDERING PHYSICIAN: COLETTE TAPIA MD PROCEDURE: CHEST WO - CT CHEST W/O CONTRAST CT CHEST W/O CONTRAST HISTORY: Cirrhosis COMPARISON: None TECHNIQUE: Multiple sequential axial images of the chest were obtained from the thoracic inlet through upper abdomen. Patient was not given contrast through intravenous route. FINDINGS: Mild bilateral pleural effusions are seen with right more than left. There is ascites. Cirrhotic changes of the liver are noted. There are abdominal varices. Spleen is enlarged. Small hiatal hernia is seen. COPD changes are seen. Minimal left lower lung infiltrates are seen. No evidence of pericardial effusion is seen. There is no evidence of pneumothorax. There are normal size mediastinal and hilar lymph nodes. The heart is not enlarged. Degenerative changes of the thoracolumbar spine are present. There is no evidence of adrenal nodule. IMPRESSION: 1. COPD. Mild bilateral pleural effusions with right more than left with ascites. Cirrhotic liver with abdominal varices. 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 Rule out developing community-acquired pneumonia of the right lung, POA Severe generalized anasarca due to underlying cirrhosis, POA Suspected IZZY, POA Streaky hemoptysis with forceful coughing x4 months, POA Hypothyroidism poorly controlled, POA Hypertension, POA Hyperlipidemia, POA Thrombocytopenia and coagulopathy secondary to underlying cirrhosis, POA Macrocytic anemia, POA Underlying history of type 2 diabetes mellitus, POA Elevated ammonia, POA PLAN: ADMISSION DATE: 06/25/24 DISCHARGE DATE: 06/29/24 DISPOSITION: home CONDITION: stable STATEMENT PROCESSOR(S): Chief Of Anesthesiology's FOLLOW UP APPOINTMENT(S): follow up DR Veloz 1 wk, Dr Thomas 6 wk repeat tyroid panel PROCEDURES: Right-sided thoracentesis2 L removed 06/27/2024 IMAGING (S) report attached to summary : CT chest pleural effusion right greater than left , abdomen US MICROBIOLOGY: report attached to summary; cytology: thoracentesis fluid cultures pending will followup with Dr Veloz for results. ACTIVITY: ab zoë HOME MEDICATIONS remain the same CHANGES ON HOME MEDICATIONS increased levothyroxine to 150 mcg NEW MEDICATIONS: None TEACHING: Educated on hypothyroidism educated to avoid skipping medication taken on a regular basis same time every day. Emergency instructions: The patient was instructed to present to the nearest Emergency Department or call 911 should their symptoms return or worsen. Home Medications: Active Scripts Propranolol HCl (Propranolol HCl) 10 Mg Tablet, 1 TAB PO BID for 14 Days, #28 TAB 0 Refills Prov:FERNANDO SAUCEDA MD 05/26/24 Pantoprazole Sodium (Pantoprazole Sodium) 20 Mg Tablet.dr, 1 TAB PO DAILY for 30 Days, #30 TAB 0 Refills Prov:FERNANDO SAUCEDA MD 05/26/24 Reported Medications Lactulose (Lactulose) 20 Gram/30 Ml Solution, 30 ML PO DAILY for constipation for 30 Days, #900 ML 0 Refills 06/25/24 Furosemide (Furosemide) 40 Mg Tablet, 1 TAB PO DAILY for 30 Days, #30 TAB 0 Refills 06/25/24 Spironolactone (Spironolactone) 100 Mg Tablet, 1 TAB PO DAILY for 30 Days, #30 TAB 0 Refills 06/25/24 Levothyroxine Sodium (Levothyroxine) 150 Mcg Capsule, 1 CAP PO DAILY for 30 Day s, #30 CAP 0 Refills 05/26/24 Discontinued Reported Medications Cyanocobalamin (Vitamin B-12) (B-12) 2,500 Mcg Tab.subl, 1 TAB SL DAILY for 30 Days, #30 TAB 0 Refills 05/26/24 Acetaminophen with Codeine (Acetaminophen-Cod #3 Tablet) 300 Mg-30 Mg Tablet, 1 TAB PO Q6HPRN PRN for pain for 7 Days, #28 TAB 0 Refills 05/26/24 Iron,Carbonyl/Ascorbic Acid (Vitron-C Tablet) 65 Mg Iron-125 Mg Tablet.dr, 1 TAB PO DAILY for 30 Days, #30 TAB 0 Refills 05/26/24 Discontinued Scripts Lactulose (Lactulose) 20 Gram/30 Ml Solution, 30 ML PO BID for constipation for 30 Days, #900 ML 0 Refills Prov:FERNANDO SAUCEDA MD 05/26/24 Spironolactone (Spironolactone) 25 Mg Tablet, 1 TAB PO DAILY for 14 Days, #14 TAB 0 Refills Prov:FERNANDO SAUCEDA MD 05/26/24 Furosemide (Furosemide) 20 Mg Tablet, 1 TAB PO BID for 14 Days, #28 TAB 0 Refills Prov:FERNANDO SAUCEDA MD 05/26/24 New Medications: Levothyroxine Sodium (Synthroid 150 Mcg Tab) 150 Mcg Tab 150 MCG PO DAILY@0630 for 30 Days, #30 TAB Continued Medications: Furosemide (Furosemide) 40 Mg Tablet 1 TAB PO DAILY for 30 Days, #30 TAB 0 Refills Lactulose (Lactulose) 20 Gram/30 Ml Solution 30 ML PO DAILY for constipation for 30 Days, #900 ML 0 Refills Pantoprazole Sodium (Pantoprazole Sodium) 20 Mg Tablet.dr 1 TAB PO DAILY for 30 Days, #30 TAB 0 Refills Propranolol HCl (Propranolol HCl) 10 Mg Tablet 1 TAB PO BID for 14 Days, #28 TAB 0 Refills Spironolactone (Spironolactone) 100 Mg Tablet 1 TAB PO DAILY for 30 Days, #30 TAB 0 Refills Discontinued Medications: Levothyroxine Sodium (Levothyroxine) 150 Mcg Capsule 1 CAP PO DAILY for 30 Days, #30 CAP 0 Refills Time spent arranging discharge: 31-60 minutes ATTESTATION BY PHYSICIAN I have seen and examined the patient. I reviewed the documentation, medical decision making, and treatment plan as noted by the resident provider above. I agree with the findings and plan of care. Gregory Gan MD, ELIZABETH NP Jun 29, 2024 08:10
--- NOTE | 2024-06-29 08:17 | NUR ---
NEW ORDER RECEIVED FOR 6 MIN WALK. PATIENT IS SCHEDULED FOR PARACENTESIS. 6 MIN WALK TO BE DONE AFTER PROCEDURE OR TOMORROW AM PER RT. DEPENDING ON STATUS OF PATIENT
[2024-06-29 08:21] LABS: CREATININE 0.8 mg/dL (0.5-1.0); POTASSIUM 3.9 mmol/L (3.5-5.1)
[2024-06-29 08:26] LABS: ALBUMIN 1.8 g/dL (3.5-5.0); BILIRUBIN,TOTAL 1.3 mg/dL (0.2-1.0); TOTAL PROTEIN, SERUM 5.6 g/dL (6.0-8.3)
--- NOTE | 2024-06-29 10:35 | NUR ---
U/S GD PARACENTESIS TOLERATED PROCEDURE. PERFORMED BY DR Sherrie DANIELS. PUNCTURE SITE TO RLQ. 7.0 LITERS OF YELLOW CLOUDY ASCITES FLUID REMOVED. END OF PROCEDURE AT 1020. PT C/O HAVING TO URINATE. BED MCNULTY PROVIDED. PT PULLED OUT CATHETER. PRESSURE AND DRESSING APPLIED. NO BLEEDING NOTED. REPORT GIVEN TO AUBREE PENNINGTON. TRANSPORTED TO 330 VIA BED. DENIES PAIN. A&O.
--- NOTE | 2024-06-29 10:42 | NUR ---
PATIENT RETURNED FROM PARACENTESIS. NO S/S OF DISTRESS NOTED. 7 LITERS WERE REMOVED. PRESSURE DRESSING NOTED TO RLQ. PATIENT DENIES ANY SOB OR DISCOMFORT. POST OP VITALS STARTED
--- NOTE | 2024-06-29 11:03 | HMCIMG ---
US ABDOMINAL PARACENTESIS IR REASON: ASCITES TECHNIQUE: Paracentesis was performed with ultrasound guidance. The puncture site was selected in the Right lower quadrant and overlying skin prepped and draped in a sterile fashion. 1% Xylocaine infiltration was performed. Catheter was placed in the fluid using trocar technique. 7 L were removed. Fluid sample was submitted for laboratory evaluation. The patient showed no evidence of complication during the procedure. IMPRESSION: 1. Ultrasound-guided paracentesis.
[2024-06-29] MEDS: ALBUMIN (HUMAN) 25% 200 ML IV SCH (11:04)
--- NOTE | 2024-06-29 14:13 | HMCIMG ---
CHEST 1VW REASON: SOB COMPARISON: 06/27/2024 FINDINGS: There is cardiomegaly. There is mild bony vascular congestion which is significantly decreased since prior exam. There is a moderate to large right pleural effusion, increased. Mediastinum and bony thorax appear unremarkable. IMPRESSION: 1. Stable cardiomegaly with decreasing pulmonary vascular congestion, but with increasing right pleural effusion.
--- NOTE | 2024-06-29 14:22 | NUR ---
6 MIN WALK D/C PER ELIZABETH [facility] ASSESSMENT AND TREATMENT TEACHER. PATIENT CONTINUES WITH SHORTNESS OF BREATH AND PAIN TO SITE WHERE THORACENTESIS WAS DONE
--- NOTE | 2024-06-29 14:59 | CONS ---
GASTROENTEROLOGY CONSULTATION NOTE Date of Consultation: Jun 29, 2024 Time of Consultation: 14:59 History of Present Illness: [ ] Review of Systems: CONSTITUTIONAL: No malaise or change in sensation of wellbeing. ENMT: No rhinorrhea, otorrhea, sinus pain, ear ache. CARDIOVASCULAR: No angina, palpitations, orthopnea or paroxysmal dyspnea. RESPIRATORY: No SOB. GASTROINTESTINAL: No abdominal pain, nausea, vomiting, diarrhea, hematemesis, melena or change in the patient's habitual bowel movements consistency/number. GENITOURINARY: No dysuria, hematuria or change in bladder continence. MUSCULOSKELETAL: No new muscle pain or decrease in muscular strength. No new joint swelling, redness or tenderness. SKIN: No new rash. Past Medical History: [ ] Past Surgical History: [ ] Past Social History: [ ] Family History: [ ] Coded Allergies: No Known Allergies (Unverified Allergy, Unknown, 04/24/24) morphine (Unverified Allergy, Unknown, 05/25/24) Physical Exam: GEN: Awake, alert, oriented in person, time and place, and in no acute distress. HEENT: No sinus tenderness. Tympanic membranes were not examined. No rhinorrhea. Oral pharyngeal mucosa is pink, moist and within normal limits. Neck is supple with no cervical lymphadenopathy, thyromegaly or JVD. CHEST: Inspection, palpation and percussion of the chest were unremarkable. Lung auscultation revealed normal breath sounds bilaterally. CARDIAC: PMI is within normal limits. Heart sounds are regular. Normal S1, S2. No gallop or murmur. ABD: Soft, non-tender and not distended. No peritoneal signs on palpation. No organomegaly. Normal bowel sounds. EXT: No cyanosis or clubbing. No edema. SKIN: Intact. No rashes. JOINTS: No evidence of synovitis or acute arthritis. NEURO: Alert and oriented to name, place and person. Cranial nerve examination is unremarkable. No focal motor deficits. Normal speech. Gait is normal. Strength is normal. Vital Sign (Last 24 Hours) 06/29/24 06/29/24 10:39 14:24 Temp 98.2 Pulse 66 Resp 20 B/P (MAP) 110/55 Pulse Ox 97 O2 Delivery Room Air O2 Flow Rate 2.0 FiO2 21 Intake & Output (last 24hrs) 06/28/24 06/28/24 06/29/24 15:00 23:00 07:00 Intake Total 150 ml 100 ml Balance 150 ml 100 ml Laboratory: [ ] Laboratory: Test 06/29/24 10:26 06/29/24 03:32 06/28/24 04:48 Range/Units Whole Blood Glucose 143 H 70-110 MG/DL White Blood Count 4.2 L 4.8-10.8 K/uL Red Blood Count 3.20 L 4.00-5.50 MIL/uL Hemoglobin 10.5 L 12.0-16.0 g/dL Hematocrit 32.0 L 36-48 % Mean Corpuscular Volume 100.0 H 79-99 fL Mean Corpuscular Hemoglobin 32.8 27.0-33.0 pg Mean Corpuscular Hemoglobin Concent 32.8 32.0-36.0 g/dL Red Cell Distribution Width 15.9 H 11.0-15.5 % Platelet Count 97 L 130-400 K/uL Mean Platelet Volume 10.0 7.5-10.5 fL Immature Granulocyte % (Auto) 0.0 0-1 % Neutrophils (%) (Auto) 54.1 40.0-77.0 % Lymphocytes (%) (Auto) 23.3 21.0-51.0 % Monocytes (%) (Auto) 17.6 H 3.0-13.0 % Eosinophils (%) (Auto) 4.3 0.0-8.0 % Basophils (%) (Auto) 0.7 0.0-5.0 % Neutrophils # (Auto) 2.3 1.8-7.7 K/uL Lymphocytes # (Auto) 1.0 1.0-4.8 K/uL Monocytes # (Auto) 0.7 0.1-1.0 K/uL Eosinophils # (Auto) 0.18 0.00-0.70 K/uL Basophils # (Auto) 0.03 0.00-0.20 K/uL Absolute Immature Granulocyte (auto 0.00 0-1 K/uL Nucleated Red Blood Cells 0.0 0.0-0.19 % Prothrombin Time 15.9 H 9.6-11.6 SEC Prothromb Time International Ratio 1.52 H 0.85-1.15 Activated Partial Thromboplast Time 36.0 H 26.3-35.5 SEC Sodium Level 144 136-145 mmol/L Potassium Level 3.9 3.5-5.1 mmol/L Chloride Level 112 H 101-111 mmol/L Carbon Dioxide Level 25 21-32 mmol/L Blood Urea Nitrogen 15 7-18 mg/dL Creatinine 0.8 0.5-1.0 mg/dL Glomerular Filtration Rate Calc 85 >90 mL/min Random Glucose 112 H 70-105 mg/dL Total Calcium 7.8 L 8.5-10.1 mg/dL Magnesium Level 1.90 1.80-2.40 mg/dL Total Bilirubin 1.3 H 0.2-1.0 mg/dL Aspartate Amino Transf (AST/SGOT) 60 H 10-37 U/L Alanine Aminotransferase (ALT/SGPT) 28 12-78 U/L Alkaline Phosphatase 172 H 50-136 U/L Total Protein 5.6 L 6.0-8.3 g/dL Albumin 1.8 L 3.5-5.0 g/dL Ammonia 21 11-32 umol/L Current Medications Medications (Trade) Dose Ordered Sig/Carmita Route PRN Reason Start Time Stop Time Status Last Admin Dose Admin Acetaminophen (TYLenol 500MG TAB) 500 mg Q6H PRN PO MILD PAIN (1-3) 06/25/24 10:30 07/25/24 10:29 06/29/24 10:53 500 MG Albumin Human 200 ml @ 0 mls/hr AD IV 06/29/24 10:30 06/30/24 10:29 06/29/24 11:04 100 MLS/HR Albuterol (DUOneb) 1 udvial Q6H PRN IH SHORTNESS OF BREATH 06/25/24 10:30 07/25/24 10:29 Ceftriaxone Sodium (ROCEphine 1G INJ) 1 gm Q12H IVPB 06/25/24 10:30 06/26/24 17:26 DC 06/26/24 09:49 1 GM Doxycycline Hyclate (Doxycycline Hyclate) 100 mg Q12H PO 06/25/24 10:30 06/26/24 17:26 DC 06/26/24 09:48 100 MG Furosemide (LASix 40MG TAB) 40 mg DAILY PO 06/26/24 09:00 07/26/24 08:59 06/29/24 08:39 40 MG Insulin Human Regular (humuLIN R 100 UNIT/ML 3ML) INSULIN SLIDING SCAL... ACHS SQ 06/25/24 16:30 07/25/24 16:29 06/27/24 12:09 2 UNIT Lactulose (Constulose 20gm/ 30ml Udcup) 20 gm BID PO 06/28/24 21:00 07/25/24 13:59 06/28/24 20:16 20 GM Lactulose (Constulose 20gm/ 30ml Udcup) 20 gm TID PO 06/25/24 14:00 06/28/24 12:25 DC 06/28/24 08:25 20 GM Levothyroxine Sodium (SYNTHroid 150MCG TAB) 150 mcg DAILY@0630 PO 06/26/24 06:30 07/26/24 06:29 06/29/24 05:13 150 MCG Magnesium Sulfate 50 ml @ 0 mls/hr PROTOCOL IV 06/25/24 10:30 07/25/24 10:29 06/29/24 05:13 25 MLS/HR Ondansetron HCl (zoFRAN 4MG INJ) 4 mg Q6H PRN IVP NAUSEA/VOMITING 06/25/24 10:30 07/25/24 10:29 Pantoprazole Sodium (PROTonix 40MG INJ) 40 mg Q24H IVP 06/25/24 10:30 06/25/24 20:50 DC 06/25/24 13:32 40 MG Pantoprazole Sodium (PROTonix 40MG TAB) 40 mg DAILY PO 06/26/24 09:00 07/26/24 08:59 06/29/24 08:38 40 MG Potassium Chloride 100 ml @ 100 mls/hr AD PRN IV POTASSIUM PROTOCOL 06/25/24 10:30 07/25/24 10:29 Potassium Chloride (K-Dur/Klor-Con 20meq) 20 meq AD PRN PO POTASSIUM PROTOCOL 06/25/24 10:30 07/25/24 10:29 Potassium Chloride (KCl 10% Elixir 20meq/15ml) 20 meq AD PRN PO POTASSIUM PROTOCOL 06/25/24 10:30 07/25/24 10:29 Propranolol HCl (Inderal) 10 mg BID PO 06/25/24 21:00 07/25/24 20:59 06/28/24 20:16 10 MG Rifaximin (Xifaxan) 550 mg Q12H PO 06/25/24 10:30 07/25/24 10:29 06/29/24 10:53 550 MG Spironolactone (Aldactone 25mg) 100 mg DAILY PO 06/26/24 09:00 07/26/24 08:59 06/29/24 08:37 100 MG Diagnostics / Radiology: [COPY/PASTE HERE IF NO REPORTS PLEASE DELETE SECTION] Assessment: [ ] Plan: [ ] RELL JASON [facility] Jun 29, 2024 14:59
--- NOTE | 2024-06-29 17:29 | NUR ---
PATIENT D/C HOME. MEDICATIONS REVIEWED WITH PATIENT. PATIENT WILL BE MAKING OWN APPOINTMENTS OFFICES CLOSED. INFORMATION PROVIDED TO PATIENT TO CALL AND MAKE APPOINTMENT. VERBALIZED UNDERSTANDING. PATIENT WHEELED DOWNSTAIRS AND TRANSFERRED TO PERSONAL VEHICLE
--- NOTE | 2024-06-29 19:31 | PN ---
endocrinology progress note Date of Service: Jun 29, 2024 subjective: levothyroxine dose has been increased from 137 mcg to 150 mcg daily. Labs on presentation showed PT INR of 1.46, PTT of 36.8. CMP remarkable for sodium of 141, potassium 4.5, creatinine 0.9, blood glucose of 115, AST of 89, ALT of 33, alkaline phosphatase of 203, ammonia of 71, albumin of 1.9. she has hypothyroidism for many years and home regimen levothyroxine 137 mcg daily. TSH 21.6 and t 4 free 1.11 REVIEW OF SYSTEMS CONSTITUTIONAL: Denies fevers, chills, or night sweats. No unintentional weight loss reported. NEUROLOGICAL: Denies headache, amaurosis fugax, motor weakness, sensory deficit, vertigo/spinning sensation, gait abnormalities, or tremors. ENT: No hearing loss, otalgia, otorrhea, rhinitis, rhinorrhea, hoarseness, or sore throat. CARDIOVASCULAR: Denies any exertional angina, dyspnea on exertion, orthopnea, paroxysmal nocturnal dyspnea, palpitations, life-threatening arrhythmias, claudication. PULMONARY: Episodes of streaky hemoptysis, shortness of breath at night, episodes of apnea at night SLEEP: Denies morning headaches, daytime somnolence or napping. Denies difficulty falling asleep, staying asleep, waking from sleep. Denies knowledge of snoring. GASTROINTESTINAL: Abdominal distention, weight gain, nausea GENITOURINARY: Denies frequency, urgency, nocturia, hematuria or incontinence (Storage/Irritative symptoms.) Low urinary stream, straining to void, urinary intermittency or hesitancy, splitting of the voiding stream, terminal dribbling. ENDOCRINOLOGIC: Denies polyuria, polydipsia, polyphagia or heat/cold intolerances. HEMATOLOGIC: Denies thrombophilia/previous clots, or coagulopathy/bleeding disorders. ONCOLOGIC: Denies personal history of malignancy. DERMATOLOGIC: Denies rashes or pruritus. PSYCHIATRIC: Denies any suicidal or homicidal ideation. Denies hallucinations. PAST MEDICAL HISTORY: Liver cirrhosis secondary to nonalcoholic fatty liver disease, hypothyroidism, hypertension, hyperlipidemia, type 2 diabetes mellitus, history of ascites requiring paracentesis x2 in May, PAST SURGICAL HISTORY: Previous therapeutic paracentesis x2 in May, PAST SOCIAL HISTORY: Patient is a previous smoker, currently denies active alcohol consumption or smoking FAMILY HISTORY: Denies pertinent family history Allergies: Patient reports having allergic reaction to morphine Home medications: No home medications available at bedside to be reconciled, family will be bringing home medication list to be reconciled and updated. Coded Allergies: No Known Allergies (Unverified Allergy, Unknown, 04/24/24) morphine (Unverified Allergy, Unknown, 05/25/24) DIAGNOSTICS / RADIOLOGY: SERVICE 9 REASON: sob ORDERING PHYSICIAN: REESE FAY MD PROCEDURE: CXR1VW - CHEST 1VW CHEST 1VW HISTORY: Shortness of breath COMPARISON: June 10, 2024 FINDINGS: A frontal projection of the chest was obtained. There are bilateral pulmonary infiltrates suggestive of pulmonary vascular congestion with possible superimposed pneumonitis. The heart is borderline enlarged. Degenerative changes are seen. No evidence of aortic calcification is seen. IMPRESSION: 1. Bilateral pulmonary infiltrates are seen suggestive of pulmonary vascular congestion with possible superimposed pneumonitis. DICTATED BY: GIDEON KOEHLER MD DATE: 06/25/24931 ELECTRONICALLY SIGNED BY: GIDEON KOEHLER MD DATE: 06/25/24 09 ASSESSMENT: uncontrolled primary hypothyroidism she has hypothyroidism for many years and home regimen levothyroxine 137 mcg daily. tsh is elevated, so recommend to increase levothyroxine dose. 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, POA Severe generalized anasarca due to underlying cirrhosis, POA Suspected IZZY, POA Streaky hemoptysis with forceful coughing x4 months, POA Hypertension, POA Hyperlipidemia, POA Thrombocytopenia and coagulopathy secondary to underlying cirrhosis, POA Macrocytic anemia, POA Underlying history of type 2 diabetes mellitus, POA Elevated ammonia, POA PLAN: continue levothyroxine 150 mcg daily educated on hypothyroidism repeat thyroid labs in 6 weeks Vitals/Labs Vital Signs Date Time Temp Pulse Resp B/P (MAP) Pulse Ox O2 Delivery O2 Flow Rate FiO2 06/29/24 16:24 98.2 64 20 117/56 97 Room Air 06/29/24 16:00 21 21 06/29/24 10:39 2.0 Laboratory Tests 06/29/24 03:32 Medications Current Medications Furosemide 80 mg ONCE ONCE IVP Last administered on 06/25/24at 08:42; Start 06/25/24 at 09:00; Stop 06/25/24 at 09:01; Status DC Lactulose 20 gm ONCE ONCE PO Last administered on 06/25/24at 13:21; Start 06/25/24 at 09:30; Stop 06/25/24 at 09:31; Status DC Pantoprazole Sodium 40 mg Q24H IVP Last administered on 06/25/24at 13:32; Start 06/25/24 at 10:30; Stop 06/25/24 at 20:50; Status DC Rifaximin 550 mg Q12H PO Last administered on 06/29/24at 10:53; Start 06/25/24 at 10:30; Stop 06/29/24 at 17:49; Status DC Ceftriaxone Sodium 1 gm Q12H IVPB Last administered on 06/26/24at 09:49; Start 06/25/24 at 10:30; Stop 06/26/24 at 17:26; Status DC Doxycycline Hyclate 100 mg Q12H PO Last administered on 06/26/24at 09:48; Start 06/25/24 at 10:30; Stop 06/26/24 at 17:26; Status DC Acetaminophen 500 mg Q6H PRN PO Last administered on 06/29/24at 10:53; Start 06/25/24 at 10:30; Stop 06/29/24 at 17:49; Status DC Ondansetron HCl 4 mg Q6H PRN IVP; Start 06/25/24 at 10:30; Stop 06/29/24 at 17:49; Status DC Albuterol 1 udvial Q6H PRN IH; Start 06/25/24 at 10:30; Stop 06/29/24 at 17:49; Status DC Lactulose 20 gm TID PO Last administered on 06/28/24at 08:25; Start 06/25/24 at 14:00; Stop 06/28/24 at 12:25; Status DC Potassium Chloride 100 ml @ 100 mls/hr AD PRN IV; Start 06/25/24 at 10:30; Stop 06/29/24 at 17:49; Status DC Potassium Chloride 20 meq AD PRN PO; Start 06/25/24 at 10:30; Stop 06/29/24 at 17:49; Status DC Potassium Chloride 20 meq AD PRN PO; Start 06/25/24 at 10:30; Stop 06/29/24 at 17:49; Status DC Magnesium Sulfate 50 ml @ 0 mls/hr PROTOCOL IV Last administered on 06/29/24at 05:13; Start 06/25/24 at 10:30; Stop 06/29/24 at 17:49; Status DC Albumin Human 200 ml @ As Directed STK-MED ONCE IV; Start 06/25/24 at 10:59; Stop 06/25/24 at 11:00; Status DC Insulin Human Regular INSULIN SLIDING SCAL... ACHS SQ Last administered on 06/27/24at 12:09; Start 06/25/24 at 16:30; Stop 06/29/24 at 17:49; Status DC Levothyroxine Sodium 150 mcg DAILY@0630 PO Last administered on 06/29/24at 05:13; Start 06/26/24 at 06:30; Stop 06/29/24 at 17:49; Status DC Furosemide 40 mg DAILY PO Last administered on 06/29/24at 08:39; Start 06/26/24 at 09:00; Stop 06/29/24 at 17:49; Status DC Propranolol HCl 10 mg BID PO Last administered on 06/28/24at 20:16; Start 06/25/24 at 21:00; Stop 06/29/24 at 17:49; Status DC Pantoprazole Sodium 40 mg DAILY PO Last administered on 06/29/24at 08:38; Start 06/26/24 at 09:00; Stop 06/29/24 at 17:49; Status DC Spironolactone 100 mg DAILY PO Last administered on 06/29/24at 08:37; Start 06/26/24 at 09:00; Stop 06/29/24 at 17:49; Status DC Lidocaine HCl FOR DR SPIKE THOMPSON... ONCE ONCE INJ; Start 06/27/24 at 10:30; Stop 06/27/24 at 10:31; Status DC Lorazepam 0.5 mg ONCE ONCE PO Last administered on 06/27/24at 23:38; Start 06/27/24 at 23:30; Stop 06/27/24 at 23:33; Status DC Lactulose 20 gm BID PO Last administered on 06/28/24at 20:16; Start 06/28/24 at 21:00; Stop 06/29/24 at 17:49; Status DC Alprazolam 0.25 mg ONCE ONCE PO Last administered on 06/28/24at 20:16; Start 06/28/24 at 18:00; Stop 06/28/24 at 18:01; Status DC Lorazepam 0.5 mg ONCE ONCE PO Last administered on 06/29/24at 01:56; Start 06/29/24 at 02:00; Stop 06/29/24 at 02:01; Status DC Albumin Human 200 ml @ 0 mls/hr AD IV Last administered on 06/29/24at 11:04; Start 06/29/24 at 10:30; Stop 06/29/24 at 17:49; Status DC JEANMARIE ABAD MD Jun 29, 2024 19:31
== END 2024-06-29 17:45 | disposition home or self-care (01) ==
LOC: EDH 07:45 → EDHIP 07:46 → 3AH 16:20
PROVIDERS: ADMIT Internal Medicine; ATTEND Internal Medicine
PROC: 0W9G3ZZ Drainage of Peritoneal Cavity, Percutaneous Approach (ICD-10-PCS; principal; 2024-06-25)
PROC: 0W9G3ZZ Drainage of Peritoneal Cavity, Percutaneous Approach (ICD-10-PCS; 2024-06-29)
DX: K74.60 Unspecified cirrhosis of liver (principal); D68.9 Coagulation defect, unspecified; D69.6 Thrombocytopenia, unspecified; J18.9 Pneumonia, unspecified organism; J90 Pleural effusion, not elsewhere classified; R04.2 Hemoptysis; R18.8 Other ascites; I10 Essential (primary) hypertension; E11.9 Type 2 diabetes mellitus without complications; E03.9 Hypothyroidism, unspecified; D53.9 Nutritional anemia, unspecified; G47.33 Obstructive sleep apnea (adult) (pediatric); K76.0 Fatty (change of) liver, not elsewhere classified; E78.00 Pure hypercholesterolemia, unspecified; E66.9 Obesity, unspecified; Z87.891 Personal history of nicotine dependence
CPT/HCPCS: 32554; 36415; 49083; 71045; 71250; 76604; 76700; 80048; 80053; 80076; 81001; 82042; 82140; 82945; 82948; 83605; 83615; 83690; 83735; 83986; 84145; 84157; 84439; 84443; 84478; 84481; 84484; 85025; 85610; 85651; 85730; 86140; 86850; 86900; 86901; 87071; 87116; 87205; 87206; 89051; 93005; 94760; 96365; 96374; 96375; 99285; C1729; G0378; J0696; J1815; J1940; J2470; J3475; P9046; P9047; A4600

== ENCOUNTER 2024-09-28 14:32 | Emergency (ER) | payer OTHER ==
[~2024-09-28] VITALS: Ht 157.5 cm; Wt 106.1 kg
[~2024-09-28 14:32] MED LIST changes: -ACET-2079 PO; -CYAN25006 SL; -FERR1TAB66 PO; -FURO20TA4 PO; +FURO40TA5 PO; +LEVO150 PO; -LEVO150C4 PO; -PANT20TA18 PO; +SPIR100T5 PO; -SPIR25TA6 PO
--- NOTE | 2024-09-28 14:52 | ERN ---
ED Note History of Present Illness Stated Complaint: LACERATION Chief Complaint: Abdominal Pain Time Seen by MD: 14:34 Dictation: PATIENT IS HERE COMPLAINING OF LEAKING FROM HER PARACENTESIS SITE, PARACENTESIS WAS PERFORMED AT [facility] YESTERDAY. SHE HAS HAD NO FEVER NO CHILLS NO NAUSEA VOMITING. SHE HAS A PUNCTURE WOUND TO THE RIGHT LOWER ABDOMEN. MILD DISTENTION NOTED. Allergies: Coded Allergies: No Known Allergies (Unverified Allergy, Unknown, 04/24/24) morphine (Unverified Allergy, Unknown, 05/25/24) Home Meds Active Scripts Lactulose (Lactulose) 20 Gram/30 Ml Solution, 20 GM PO BID, #500 ML Prov:TANMAY CHRISTOPHER MD 07/27/24 Levothyroxine Sodium (Synthroid 150 Mcg Tab) 150 Mcg Tab, 150 MCG PO DAILY@0630 for 30 Days, #30 TAB Prov:ELIZABETH HOPKINS NP 06/29/24 Propranolol HCl (Propranolol HCl) 10 Mg Tablet, 1 TAB PO BID for 14 Days, #28 TAB 0 Refills Prov:FERNANDO SAUCEDA MD 05/26/24 Reported Medications Furosemide (Furosemide) 40 Mg Tablet, 1 TAB PO DAILY for 30 Days, #30 TAB 0 Refills 06/25/24 Spironolactone (Spironolactone) 100 Mg Tablet, 1 TAB PO DAILY for 30 Days, #30 TAB 0 Refills 06/25/24 Past Medical History Past Medical History: Diabetes-Type II, High Cholesterol, Hypertension, Liver Disease, Other Additional Past Medical Hx: CIRRHOSIS,THYROID Surgical History: None History: Not Applicable RN Note Reviewed/Agreed w/PFSH: Yes Review of System Dictation CONSTITUTIONAL: NEGATIVE EXCEPT FOR HPI HEAD/FACE: NEGATIVE EXCEPT FOR HPI EENT: NEGATIVE EXCEPT FOR HPI RESPIRATORY: NEGATIVE EXCEPT FOR HPI GASTROINTESTINAL/ABDOMINAL: NEGATIVE EXCEPT FOR HPI MILDLY DISTENDED ABDOMEN WITH PUNCTURE WOUND TO RIGHT LOWER QUADRANT GENITOURINARY: NEGATIVE EXCEPT FOR HPI MUSCULOSKELETAL: NEGATIVE EXCEPT FOR HPI INTEGUMENTARY: NEGATIVE EXCEPT FOR HPI NEUROLOGICAL/PSYCH: NEGATIVE EXCEPT FOR HPI HEMATOLOGIC/LYMPHATIC: NEGATIVE EXCEPT FOR HPI ALL SYSTEMS NEGATIVE, EXCEPT NOTED ABOVE. 13 POINT REVIEW OF SYSTEMS ASSESSED AND ALL NEGATIVE EXCEPT FOR ABOVE. Initial Vital Sign VS Vital Signs Date Time Temp Pulse Resp B/P (MAP) Pulse Ox O2 Delivery O2 Flow Rate FiO2 09/28/24 14:46 98.2 89 16 133/60 99 Room Air 0 09/28/24 17:24 21 Physical Exam Dictation VITAL SIGNS REVIEWED GENERAL APPEARANCE: ALERT, ORIENTED X 3, NO ACUTE DISTRESS, WELL DEVELOPED, NOURISHED. HEAD AND FACE: NON-TRAUMATIC. EYES: PERRL, PINK CONJUNCTIVAS, EYELID NO TRAUMA, ANTERIOR CHAMBER WITH ARCUS SENILIS. EARS: PINNAS INTACT AND NO SIGNS OF TRAUMA OR ERYTHEMA EAR CANALS CLEAR AND NO DISCHARGE TM NO ERYTHEMA NOSE: NO DISCHARGE, NO BLEEDING. OROPHARYNX: MOUTH NORMAL, TONGUE PINK, PHARYNX CLEAR,NO ERYTHEMA, TONSILS NO EXUDATES, NO ABSCESSES NOTED, MUCOUS MEMBRANE MOIST NECK: SUPPLE, NON-TENDER, NO THYROMEGALY, NO MASSES, NO JVD, NO BRUITS BREAST:DEFERRED CHEST:NO TENDERNESS, NO CREPITUS, NO PARADOXICAL MOVEMENT, NO RETRACTIONS LUNGS:CLEAR, WELL-VENTILATED, SYMMETRIC, NO RALES, NO WHEEZING, NO RHONCHI, NO STRIDOR, GOOD BREATH SOUNDS BILATERALLY HEART: REGULAR RATE, REGULAR RHYTHM, NO MURMUR, NO GALLOPS VASCULAR: NO PERIPHERAL EDEMA, ABDOMEN: SOFT, POSITIVE BOWEL SOUNDS, NONDISTENDED, NO GUARDING, NONTENDER, NO REBOUND, NO MASSES NO HEPATOMEGALY, NO SPLENOMEGALY, NO MEYER'S SIGN, NO HERNIAS. MILD ASCITES DRESSING INTACT TO RIGHT LOWER QUADRANT RECTAL: DEFERRED GENITAL: DEFERRED NEUROLOGICAL: NORMAL SPEECH, MOTOR FUNCTION INTACT, SENSORY FUNCTION INTACT MUSCULOSKELETAL: NECK NONTENDER, FULL RANGE OF MOTION, BACK NONTENDER, FULL RANGE OF MOTION, EXTREMITIES: NONTENDER, FULL RANGE OF MOTION SKIN: COLOR PINK, DRY, NO TURGOR, NO RASH, NO LACERATIONS, NO ABRASIONS, NO CONTUSIONS. LYMPHATIC: DEFERRED Results (Laboratory/Radiology) Laboratory/Radiology Laboratory Tests Test 09/28/24 16:04 White Blood Count 5.4 K/uL (4.8-10.8) Red Blood Count 2.86 MIL/uL (4.00-5.50) L Hemoglobin 9.6 g/dL (12.0-16.0) L Hematocrit 29.7 % (36-48) L Mean Corpuscular Volume 103.8 fL (79-99) H Mean Corpuscular Hemoglobin 33.6 pg (27.0-33.0) H Mean Corpuscular Hemoglobin Concent 32.3 g/dL (32.0-36.0) Red Cell Distribution Width 17.0 % (11.0-15.5) H Platelet Count 94 K/uL (130-400) L Mean Platelet Volume 10.2 fL (7.5-10.5) Immature Granulocyte % (Auto) 0.4 % (0-1) Neutrophils (%) (Auto) 81.3 % (40.0-77.0) H Lymphocytes (%) (Auto) 5.5 % (21.0-51.0) L Monocytes (%) (Auto) 11.3 % (3.0-13.0) Eosinophils (%) (Auto) 1.1 % (0.0-8.0) Basophils (%) (Auto) 0.4 % (0.0-5.0) Neutrophils # (Auto) 4.4 K/uL (1.8-7.7) Lymphocytes # (Auto) 0.3 K/uL (1.0-4.8) L Monocytes # (Auto) 0.6 K/uL (0.1-1.0) Eosinophils # (Auto) 0.06 K/uL (0.00-0.70) Basophils # (Auto) 0.02 K/uL (0.00-0.20) Absolute Immature Granulocyte (auto 0.02 K/uL (0-1) Nucleated Red Blood Cells 0.0 % (0.0-0.19) White Cell Morphology Comment See comments Sodium Level 137 mmol/L (136-145) Potassium Level 4.0 mmol/L (3.5-5.1) Chloride Level 105 mmol/L (101-111) Carbon Dioxide Level 24 mmol/L (21-32) Blood Urea Nitrogen 38 mg/dL (7-18) H Creatinine 1.1 mg/dL (0.5-1.0) H Glomerular Filtration Rate Calc 58 mL/min (>90) Random Glucose 220 mg/dL (70-105) H Total Calcium 7.8 mg/dL (8.5-10.1) L Labs Reviewed?: Yes ED Course ED Course Orders Procedure Category Date Status Time Cbc With Differential LAB 09/28/24 Complete 14:49 Basic Metabolic Panel LAB 09/28/24 Complete 14:49 Vital Signs Date Time Temp Pulse Resp B/P (MAP) Pulse Ox O2 Delivery O2 Flow Rate FiO2 09/28/24 17:24 98.2 85 16 122/53 97 Room Air* 0 21 09/28/24 14:46 98.2 89 16 133/60 99 Room Air 0 1645/NO CHANGE IN COMPLAINT. PATIENT HAS A DRESSING TO THE PUNCTURE SITE RIGHT LOWER QUADRANT. INSTRUCTED TO FOLLOW UP WITH HER PRIMARY CARE DOCTOR. Medical Decision Making MDM MEDICAL DISCHARGE MAKING BASED ON BASIC LABS FOR ABDOMINAL PAIN. NO REMARKABLE FINDINGS PATIENT DISCHARGED HOME WITH DRESSING INTACT TO PUNCTURE WOUND AND TOLD TO SEE YOUR PRIMARY CARE DOCTOR DX & DISP Disposition: Discharge Departure Impression: Primary Impression: Liver cirrhosis Additional Impressions: Ascites, Pancytopenia Condition: Stable Additional Instructions: FOLLOW-UP WITH PRIMARY CARE PROVIDER IN 1 TO 2 DAYS. TAKE MEDICATIONS DIRECTED HERE IN THE EMERGENCY ROOM. OKAY TO CONTINUE HOME MEDICATIONS UNLESS OTHERWISE DISCUSSED DURING YOUR VISIT IN THE EMERGENCY ROOM TODAY. RETURN TO YOUR NEAREST EMERGENCY ROOM IF SYMPTOMS WORSEN OR IF THERE IS NO IMPROVEMENT. CALL 911 IF YOU NEED IMMEDIATE ASSISTANCE. TAKE TYLENOL OR MOTRIN [id number] NEEDED AND IF NO CONTRAINDICATIONS ARE PRESENT. INCREASE ORAL HYDRATION. A WOUND CULTURE OR URINE CULTURE WAS ORDERED HERE IN THE EMERGENCY ROOM DEPARTMENT PLEASE FOLLOW-UP WITH PRIMARY CARE PROVIDER AND ADVISE THEM TO GET REPEAT PORTS FROM OUR FACILITY. IF YOU HAD ANY JIM WRAP/SPLINTS THAT WERE APPLIED HERE, PLEASE DO NOT REMOVE THEM UNTIL YOU SEE YOUR PRIMARY CARE OR SPECIALTY. CONTINUE WITH DRESSING TO YOUR PUNCTURE WOUND. FOLLOW UP WITH YOUR PRIMARY CARE DOCTOR IN 1-2 DAYS. Referrals: BELKYS SÁNCHEZ (PCP) Time of Disposition: 16:50 I have reviewed the case, and I agree with, Diagnosis and Plan URMILA LESLIE NP Sep 28, 2024 14:52 FANY HERBERT DO Sep 28, 2024 18:45
[2024-09-28 16:15] LABS: BASOPHILS # (AUTO) 0.02 K/uL (0.00-0.20); BASOPHILS % (AUTO) 0.4 % (0.0-5.0); EOSINOPHILS # (AUTO) 0.06 K/uL (0.00-0.70); EOSINOPHILS % (AUTO) 1.1 % (0.0-8.0); HEMATOCRIT 29.7 % (36-48); IMMATURE GRANULOCYTE ABSOLUTE 0.02 K/uL (0-1); LYMPHOCYTES # (AUTO) 0.3 K/uL (1.0-4.8); LYMPHOCYTES % (AUTO) 5.5 % (21.0-51.0); MEAN CORPUSCULAR HEMOGLOBIN 33.6 pg (27.0-33.0); MEAN CORPUSCULAR HGB CONC 32.3 g/dL (32.0-36.0); MEAN CORPUSCULAR VOLUME 103.8 fL (79-99); MONOCYTES # (AUTO) 0.6 K/uL (0.1-1.0); MONOCYTES % (AUTO) 11.3 % (3.0-13.0); NEUTROPHILS # (AUTO) 4.4 K/uL (1.8-7.7); NEUTROPHILS % (AUTO) 81.3 % (40.0-77.0); PLATELET COUNT (AUTO) 94 K/uL (130-400); RED BLOOD CELL COUNT(AUTO) 2.86 MIL/uL (4.00-5.50); WHITE BLOOD COUNT (AUTO) 5.4 K/uL (4.8-10.8)
[2024-09-28 16:16] LABS: CREATININE 1.1 mg/dL (0.5-1.0)
[2024-09-28 17:24] VITALS: BP 122/53; PULSE 85; RESP 16; TEMP 98.2; O2SAT 97
== END 2024-09-28 17:31 | disposition home or self-care (01) ==
LOC: EDH 14:32
DX: R18.8 Other ascites (principal); D61.818 Other pancytopenia; K74.60 Unspecified cirrhosis of liver; E11.9 Type 2 diabetes mellitus without complications; E78.00 Pure hypercholesterolemia, unspecified; I10 Essential (primary) hypertension; Z79.890 Hormone replacement therapy; Z79.899 Other long term (current) drug therapy; Z88.5 Allergy status to narcotic agent
CPT/HCPCS: 36415; 80048; 85025; 99283